=== PATIENT | female | born 1975 | race Caucasian/White ===

== ENCOUNTER 2018-04-15 11:30 | Emergency (ER) | payer OTHER ==
[2018-04-15 13:15] VITALS: BP 112/78
--- NOTE | 2018-04-15 13:45 | UC ---
Shoulder Pain HPI - HPI Summary HPI Summary: Pt with h/o chronic pain, fibromylagia presents to with "knot" and pain in left posterior shoulder. Pt states has been present for 3 days. no relief with Rx oxycodong or fentanyl. Pt has tried heat and gentle massage without relief. Pt reports paresthesia LUE. pt states called Dr. Danielle and recommended she come here. Pt is RHD. no trauma. no cp, sob. no other injuries Pt's medications reviewed this visit - History of Current Complaint Chief Complaint: UCUpperExtremity Stated Complaint: LEFT SHOULDER PAIN Time Seen by Provider: 04/15/18 13:09 Hx Obtained From: Patient Hx Last Menstrual Period: 03/24/18 ?: No Onset/Duration: Gradual Onset Pain Intensity: 10 - Allergies/Home Medications Allergies/Adverse Reactions: Allergies Allergy/AdvReac Type Severity Reaction Status Date / Time No Known Allergies Allergy Verified 04/15/18 13:09 Home Medications: Home Medications Etanercept [Enbrel] 50 mg SC WEEKLY 04/15/18 [History Confirmed 04/15/18] Hydroxychloroquine TAB* [Plaquenil TAB*] 200 mg PO DAILY 04/15/18 [History Confirmed 04/15/18] oxyCODONE TAB* [Roxycodone TAB 5 mg*] 20 mg PO Q4H PRN 04/15/18 [History Confirmed 04/15/18] sulfaSALAzine TAB* [Azulfidine TAB*] 1,000 mg PO BID 04/15/18 [History Confirmed 04/15/18] tiZANidine TAB* [Zanaflex TAB*] 2 mg PO BID 04/15/18 [History Confirmed 04/15/18 ] PMH/Surg Hx/FS Hx/Imm Hx Previously Healthy: Yes Neurological History: Other Other Neurological History: fibromyalgia - Surgical History Surgical History: None - Family History Known Family History: Positive: Cardiac Disease, Hypertension - Social History Occupation: Disabled Lives: With Family Alcohol Use: None Substance Use Type: None Smoking Status (MU): Heavy Every Day Tobacco Smoker Type: Cigarettes Amount Used/How Often: 1/2 ppd Length of Time of Smoking/Using Tobacco: 10 YRS Review of Systems Constitutional: Negative Musculoskeletal: Other: - left posterior shoulder pain Neurological: Paresthesia All Other Systems Reviewed And Are Negative: Yes Physical Exam - Summary Physical Exam Summary: Vital Signs Reviewed: Yes A+Ox3, mild discomfort Eyes: Conjunctiva Clear, LYNN. EOM intact and full ENT: Hearing grossly normal TM x 2 clear, mmoist, uvula midline, no exudate, no erythema Neck: Positive: Supple no spinous process pain c/t/l/s Respiratory: Positive: No respiratory distress, No accessory muscle use + CTA throughout no w/r Cardiovascular: RRR nl s1, s2 no m/r CBT <2 sec abd soft + BS nt/nd no guarding, no distension Musculoskeletal Exam: Pt holding LUE supported against body + pain with abduction left shoulder, pain with palpation posterior shoulder along inferior scapula - palpable spasm. + flex.ext elbow, wrist + pronate/supinate Neurological: Positive: Alert, + sensation throughout + thumb up, a ok, finger cross, finger spread + patchy reports of parestheis 2+ bicep without clonus Psychological: Positive: Normal Response To Family Skin: Positive: no rash, no ecchymosis Triage Information Reviewed: Yes Vital Signs: Initial Vital Signs Temp 98 F 04/15/18 13:06 Pulse 102 04/15/18 13:06 Resp 16 04/15/18 13:06 BP 112/78 04/15/18 13:06 Pulse Ox 98 04/15/18 13:06 Re-Evaluation - Re-Evaluation First Eval Re-Evaluation Time: 14:25 Change: Improved - Pt states pain improved following Tordaol and sling recommend out of sling 3-4 times /day - slow circles, bend straightehten heat stretch pt spoke with Dr. Danielle - has appt Wednesday [facility] Shoulder Course/Dx - Course Course Of Treatment: Pt with left posterior shoulder pain and muscle spasm. Pt with focal pain, distal CSM intact. Pt on Fentanyl and oxycodone. recommend sling, heat, toradol, exercise. no muscle relaxant second to sedation from opiates. f/u with pain management - Differential Dx/Diagnosis Provider Diagnoses: muscle spasm left posterior shoulder Discharge - Sign-Out/Discharge Documenting (check all that apply): Patient Departure All imaging exams completed and their final reports reviewed: No Studies - Discharge Plan Condition: Stable Disposition: HOME Prescriptions: methylPREDNISolone [Medrol Dosepak 4 MG*] 4 mg PO .SEE SURY INSTRUCTION #1 tab Patient Education Materials: Muscle Spasm (ED) Referrals: Citlalli Franklin MD [Primary Care Provider] - Art Danielle DO [Doctor of Osteopathy] - (Wednesday, 10am as scheduled) Additional Instructions: - Take prednisone as prescribed until gone - wear sling for comfort and support - apply heat to the shoulder - then warm, gentle stretching exercises -k keep you appointment as scheduled on Wednesday with Dr kat Roblero Disposition and Condition Condition: STABLE Disposition: Home
[2018-04-15] MEDS ORDERED: Ketorolac INJ* 60 MG/2 ML VIAL IM ONE (13:50)
== END 2018-04-15 14:26 | disposition home or self-care (01) ==
LOC: UCCORT 11:30
DX: M62.838 Other muscle spasm (principal); M79.7 Fibromyalgia; F17.210 Nicotine dependence, cigarettes, uncomplicated
CPT/HCPCS: 96372; 99213; G0463; J1885

== ENCOUNTER 2018-04-20 14:37 | Emergency (ER) | payer OTHER ==
[2018-04-20 16:47] VITALS: BP 123/78
--- NOTE | 2018-04-20 17:44 | UC ---
Back Pain HPI - HPI Summary HPI Summary: 42-year-old female with history of chronic pain syndrome and fibromyalgia presents with an 8 day history of left upper back/shoulder pain that radiates up into left side of her neck. She was initially seen at this facility on 04/15. Chart reviewed. She was given dose of Toradol at that time with some improvement in her symptoms and discharged home on a Medrol Dosepak with follow- up with Dr. Danielle, pain management, on 04/18/2018 which she did keep. States that her taste gave her some injections which provided temporary pain relief but pain returned later that day. She spoke with her primary care provider today who ordered some x-rays which were done at this facility. She takes oxycodone and fentanyl routinely and states these have provided no relief. She does report some pain relief while taking the Medrol Dosepak. Describes pain as a constant intense spasm that worsens with movement. She reports some intermittent numbness and tingling in the right arm and fingers. Denies fever, chills, injury, rash, chest pain, palpitations, shortness of breath, abdominal pain, nausea, vomiting, or weakness of upper extremities.she has follow-up appointment scheduled with Dr. Danielle on April 25. - History of Current Complaint Chief Complaint: UCGeneralIllness Stated Complaint: RECHECK BACK PAIN Time Seen by Provider: 04/20/18 17:23 Hx Obtained From: Patient Hx Last Menstrual Period: 04/17/18 Onset/Duration: Gradual Onset, Lasting Days - 8 Timing: Constant Severity Currently: Severe Pain Intensity: 10 Character: Spasmodic Aggravating Factor(s): Movement Alleviating Factor(s): Nothing Associated Signs And Symptoms: Positive: Numbness, Tingling. Negative: Swelling , Redness, Bruising, Fever, Weakness, Abdominal Pain - Allergies/Home Medications Allergies/Adverse Reactions: Allergies Allergy/AdvReac Type Severity Reaction Status Date / Time No Known Allergies Allergy Verified 04/20/18 16:38 PMH/Surg Hx/FS Hx/Imm Hx - Additional Past Medical History Additional PMH: Chronic pain syndrome, fibromyalgia, rheumatoid arthritis - Surgical History Surgical History: None - Family History Known Family History: Positive: Cardiac Disease, Hypertension - Social History Occupation: Disabled Lives: With Family Alcohol Use: None Substance Use Type: Prescribed Smoking Status (MU): Heavy Every Day Tobacco Smoker Type: Cigarettes Amount Used/How Often: 1/2 ppd Length of Time of Smoking/Using Tobacco: 10 YRS Review of Systems Constitutional: Negative Skin: Negative Respiratory: Negative Cardiovascular: Negative Gastrointestinal: Negative Motor: Negative Musculoskeletal: Other: - See HPI Neurological: Paresthesia, Numbness Is Patient Immunocompromised?: Yes - Enbrel All Other Systems Reviewed And Are Negative: Yes Physical Exam Triage Information Reviewed: Yes Appearance: Well-Nourished, Ill-Appearing - Chronically, Pain Distress - Mild- moderate distress Vital Signs: Initial Vital Signs Temp 97.9 F 04/20/18 16:40 Pulse 81 04/20/18 16:40 Resp 20 04/20/18 16:40 BP 123/78 04/20/18 16:40 Pulse Ox 100 04/20/18 16:40 Vital Signs Reviewed: Yes Neck: Positive: Supple, Nontender Respiratory: Positive: Lungs clear, Normal breath sounds, No respiratory distress Cardiovascular: Positive: RRR, No Murmur, Pulses Normal, Brisk Capillary Refill Musculoskeletal: Positive: Strength Intact, ROM Intact - Left shoulder, Other: - Soft tissue tenderness across left upper back across scapula. Neurological: Positive: Alert, Muscle Tone Normal, Other: - Sensation intact bilateral upper extremities Skin Exam: Normal Diagnostics - Radiology No standard instances Radiology Interpretation Completed By: Radiologist - X-rays of C-spin, T-spine, and left shoulder ordered by Dr. Severino and performed earlier today were read by radiologist and reviewed. There was some mild DDD of the cervical spin with mild straitening of the normal cervical lordosis without evidence of fracture, T -spine showed straitening of normal kyphosis without evidence of fracture, left shoulder with mild AC arthritis but otherwise unremarkable. Back Pain Course/Dx - Course Course Of Treatment: 42 year old female with history of chronic pain syndrome, fibromyalgia, and RA presents with 8 day history of non-traumatic left upper back/shoulder pain. Her exam was unremarkable except for some soft tissue tenderness. The X-rays performed earlier in the day were reviewed and unremarkable for acute pathology. She states she had some relief with the ketoralac injection she received at previous visit and with the Medrol Dose Angel therefore will give her another ketoralac injection and restart her on a short course of steroids. She is to follow up with Dr. Danielle, pain management, on Wednesday as scheduled. Warning symptoms reviewed with patient. Verbalizes understanding and agrees with POC. - Differential Dx/Diagnosis Differential Diagnosis/HQI/PQRI: Arthritis, Fracture, Herniated Disc, Strain, Other - fibromyalgia Provider Diagnoses: left upper back pain Discharge - Sign-Out/Discharge Documenting (check all that apply): Patient Departure All imaging exams completed and their final reports reviewed: No Studies - Discharge Plan Condition: Stable Disposition: HOME Prescriptions: predniSONE TAB* [Deltasone 10 MG TAB*] 30 mg PO DAILY #15 tab Patient Education Materials: Back Pain (ED) Referrals: Citlalli Franklin MD [Primary Care Provider] - Additional Instructions: The X-rays that were performed earlier today were reviewed by the radiologist and there were no significant findings. You were given another shot of ketoralac in the clinic today. Do not take any other non-steroidal anti-inflammatories such as ibuprofen (Advil, Motrin), naproxen (Aleve) or aspirin for at least 8 hours after receiving this injection. I will send a prescription for prednisone 30 mg daily for 5 days. Continue your other pain medications as prescribed however I would recommend not taking the muscle relaxant with the other pain medications as this may cause over sedation. Continue to use the sling that was provided at your previous visit as needed for comfort. Apply heat to the affected area for 15-20 minutes 4 times a day. Keep your appointment with Dr. Danielle as scheduled on Wednesday. Seek immediate medical attention in the emergency room if you develop any chest pain, feeling like your heart is racing or skipping beats, have shortness of breath, weakness or dizziness, or any worsening of symptoms. - Billing Disposition and Condition Condition: STABLE Disposition: Home - Attestation Statements Provider Attestation: Per institutional requirements, I have reviewed the chart, however, I was not consulted specifically or made aware of this patient by the midlevel provider. I did not personally evaluate, interact with , or disposition this patient.
[2018-04-20] MEDS ORDERED: Ketorolac INJ* 30 MG/ML 1 ML VIAL IM ONE (17:46)
== END 2018-04-20 17:58 | disposition home or self-care (01) ==
LOC: UCCORT 14:37
DX: M54.6 Pain in thoracic spine (principal); M79.7 Fibromyalgia; G89.4 Chronic pain syndrome; M06.9 Rheumatoid arthritis, unspecified; F17.210 Nicotine dependence, cigarettes, uncomplicated
CPT/HCPCS: 96372; 99212; G0463; J1885

== ENCOUNTER 2018-08-11 05:42 | Observation (INO) | payer MEDICARE, OTHER ==
[~2018-08-11 05:42] MED LIST: Buffered Lidocaine 1% SYRIN* 1 ML/SYRINGE INTRADERM ONE
--- OUTSIDE RECORDS SUMMARY | 2018-08-11 05:46 | XMS REPORT | Continuity of Care Document ---
:1975 External Reference #:[id number] Author Name Socorro Kevin Care Team Providers Name Role Phone Citlalli Franklin MD Primary Care Physician Unavailable Payers Type Date Identification Numbers Payment Provider Subscriber Policy Number: [id number] Medicare Leanne Butler PayID: [id number] [address] [place] [address] Effective: 2015 Policy Number: [employer] Medicaid Leanne Butler [id number] Expires: 2018 Group Name: [id number] [address] [address] PayID: [id number] [place] [address] Expires: 2015 Policy Number: [id number] [facility] Leanne Butler PayID: [id number] [address] [address] Expires: 2018 Policy Number: [id number] [facility] Ppo Leanne Butler PayID: [id number] [place] [address] Effective: 2010 Policy Number: [id number] [employer] Ppo Leanne Butler Expires: 2010 PayID: [id number] [place] [address] Expires: 2018 [facility]: [id number] [facility] [address] [address] Effective: 2018 Policy Number: [id number] Medicaid Leanne Butler Group Name: 1 1 [address] PayID: [id number] [place] [address] Advance Directives Description No Information Available Problems Date Description Provider Status Onset: 12/12/2015 Disturbance in sleep behavior Natalie Martínez MD Active Family History Date Family Member(s) Problem(s) Comments General Rheumatoid Arthritis General Colon Cancer General Diabetes Type II General Alzheimer's Disease Father Colon Cancer Father Diabetes Type II Father Chronic Obstructive Pulmonary Disease (COPD) Mother Alive And Well Paternal Grandfather due to Unknown Causes () Paternal Grandmother due to Unknown Causes () Maternal Grandfather due to Diabetes () Maternal Grandmother due to Alzheimer's Disease () Social History Type Date Description Comments Sex Unknown Marital Status Significant Other Lives With Boyfriend 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 times daily -- maximum daily dose of 2 per day Baclofen 05/16/20 Active Tablets 10mg 14tabs take one L40.50 Scott 18 tablet by Maycol mouth twice M.D. a day as needed for muscle spasms - avoid driving and other muscular relaxants M25.512 Ciclopirox 03/16/2018 Active Cream 0.77% 30gm apply to nail Scott Olamine daily as rylie Severino M.D. B12 Fast 02/16/2018 Active Tablets 5000mcg 90tabs sublingual Scott Dissolve Dispers daily Yudelka Severino Duloxetine HCL 02/15/[address] 30mg 90caps Take One Scott Part Capsule By Cem Severino Daily M.DYoshi Along With 60 MG Dose Clobetasol 12/13/2017 Active Ointment 0.05% 30unit Apply Once L4 Scott Propionate s Daily as Needed 0. Maycol, For Psoriasis, 50 M.D. Avoid Face And Neck Chantix Starting 12/07/2017 Active Tablets 0.5mg X 55tabs as directed, F1 Scott Month Angel 11 & 1 stop smoking 7. Maycol, mg X 42 21 M.D. 0 Chantix 12/07/2017 Active Tablets 1mg 90tabs day 8 to end of F1 Scott treatment: 1 mg 7. Maycol, by mouth twice 21 M.D. a day 0 Beeswax (Yellow) 12/07/2017 Active Wax 3gm apply daily for F1 Scott dry skin as 7. Maycol, needed 21 M.D. 0 Enbrel Sureclick 09/09/2017 Active Solution 50mg/ml 3.92un inject 50mg L4 Scott Auto-Injec its under the skin 0. Maycol, t every week 50 M.D. Neoprene Patella 06/25/2017 Active Misc 2units use daily as Scott Knee needed for Maycol, Support/Medium right and left M.D. knee stabilization 715.19 Cymbalta 01/13/2017 Active Caps 30mg 90caps please take one Scott Part capsule by Maycol, mouth daily M.D. along with 60 mg dose Duloxetine HCL 01/13/[address] 60mg 90caps 1 by mouth Scott Part every day along Maycol, with 30 mg M.D. capsule Systane 10/13/2016 Active Solution 0.4-0.3 30unit apply twice M7 Scott Preservative % s daily for dry 9. Maycol, Free eyes 1 M.D. Sulfasalazine 07/09/2016 Active Tablets 500mg 120tab Take 2 Tablets L4 Scott s By Mouth In The 0. Maycol, Morning And In 50 M.D. The Evening For A Total Of 4 Tablets Daily Ongoing Amitiza 12/11/2015 Active Capsules 8mcg 1 by mouth Unknown twice a day Fentanyl 12/11/2015 Active Patches 37.5mcg 1 patch every Unknown 72HR /HR 72 hours Oxycodone HCL 12/11/2015 Active Tablets 20mg 1 tablet by Unknown mouth 4 times a day as needed Gabapentin 12/11/2015 Active Capsules 400mg 180cap Take 1 Capsule M7 Scott s By Mouth Six 9. Maycol, Times A Day 7 M.D. Nabumetone 05/09/2018 - Hx Tablets 500mg 60tabs take one L4 Scott 05/16/2018 capsule/tablet 0. Maycol, by mouth twice 50 M.D. daily as needed for pain, please stop other nsaids, avoid at same time as duloxetine M25.512 Diclofenac Sodium 04/19/2018 - Hx Gel 3% 100gm apply twice L40.50 Scott 05/09/2018 daily to your [place] Severino. shoulder region M25.512 Provigil 02/16/2018 - Hx Tablets 100mg 30tabs take one R53.83 Scott 04/20/2018 capsule/tablet Maycol, daily by mouth M.D. as needed for hypersomnia mdd 1(failed adderall) Enbrel Mini 09/09/2017 - Hx Solution 50mg/ml 3.920ml sq weekly L40.50 Scott 09/09/2017 Cartridge Nanci SeverinoD. Adderall 06/07/2017 - Hx Tablets 5mg 120tabs take two tablets R53.83 Scott 07/11/2018 by mouth twice a Maycol, day max/day=4 M.D. Nuvigil 04/26/2017 - Hx Tablets 50mg 30tabs take one L40.50 Scott 05/11/2017 capsule/tablet Maycol, daily by mouth M.D. as needed for hypersomnia F51.11 Diclofenac 01/13/2017 - Hx Tablets DR 75mg 60tabs Take One L40.50 Scott Sodium 04/19/2018 Tablet By Maycol, Mouth Twice A M.D. Day as Needed For Pain, Avoid Other NSAIDS Naproxen 12/07/2016 - Hx Tablets 500mg 60tabs 1 tablet with Scott 01/13/2017 food by mouth Maycol, twice a day M.D. as needed for pain, avoid with other NSAIDs (not taking) Calcipotriene 10/13/2016 - Hx Ointment 0.005% 60gm apply a thin L40.50 Scott 12/13/2017 layer to Maycol, affected M.D. areas once or twice a day and rub in gently and completely Provigil 10/13/2016 - Hx Tablets 100mg 30tabs take one G47.14 Scott 01/13/2017 capsule/table Maycol, t daily by M.D. mouth as needed for hypersomnia Salivasure 10/13/2016 - Hx Lozenges 60units use daily as M79.1 Scott 01/13/2017 needed for Maycol, zoe of M.D. the mouth Estazolam 04/21/2016 - Hx Tablets 1mg 14tabs 1 po at G47.00 Marycarmen 10/13/2016 bedtime x 3 Keron, ANTONIO, nights then KEVIN ODOM-JUDI off of 3 nights may repeat weekly Trazodone HCL 04/21/2016 - Hx Tablets 50mg 30tabs Take One M06.4 Scott 12/07/2017 Tablet By Maycol Mouth AT M.D. Bedtime as Needed For Insomnia Diclofenac 01/23/2016 - Hx Tablets DR 75mg 60tabs Take One Scott Sodium 12/07/2016 Tablet By Maycol Mouth Twice A M.D. Day as Needed For Pain Avoid Other NSAIDS Folic Acid 12/11/2015 - Hx Tablets 1mg 1 by mouth Unknown 02/20/2016 every day Meloxicam 12/11/2015 - Hx Tablets 7.5mg take 1 tab by Unknown 01/23/2016 mouth qdaily with food Plaquenil 12/11/2015 - Hx Tablets 200mg 2 by mouth Unknown 10/13/2016 daily Lexapro 12/11/2015 - Hx Tablets 20mg 1 by mouth Unknown 01/13/2017 every day Cymbalta 12/11/2015 - Hx Caps DR 60mg 1 by mouth Unknown 01/13/2017 Part every day Methotrexate 12/11/2015 - Hx Tablets 2.5mg 4 tabs by Unknown 01/23/2016 mouth every week Medications Administered in Office Medication Date Status Form Strength Qnty SIG Indications Ordering Provider No Injection 05/16/20 Administered Injection Scott Seveirno M.D. No Injection 05/16/20 Administered Injection Scott Severino M.D. Immunizations CPT Code Status Date Vaccine Reaction Lot # [id number] Given 02/16/2018 Pneumococcal Conjugate no immediate reaction [id number] Vaccine 13 Valent For noted Intramuscular Use 69850 Given 04/26/2017 Influenza Virus Vaccine, [id number] Quadrivalent, Split, Preservative Free 20112 Given 04/13/2016 Influenza Virus Vaccine, Quadrivalent, Split, Preservative Free Vital Signs Date Vital Result Comment 08/03/2018 11:05am Height 67.5 inches 5'7.50" Weight 150.00 lb BP Systolic Sitting 100 mmHg BP Diastolic Sitting 60 mmHg Pain Level 8 BMI (Body Mass Index) 23.1 kg/m2 07/26/2018 3:28pm Height 66 inches 5'6" Weight 150.00 lb Heart Rate 80 /min BP Systolic 120 mmHg BP Diastolic 64 mmHg Pain Level 9 O2 % BldC Oximetry 98 % BMI (Body Mass Index) 24.2 kg/m2 06/20/2018 11:05am Height 66 inches 5'6" Weight 143.00 lb Heart Rate 84 /min BP Systolic Sitting 108 mmHg BP Diastolic Sitting 72 mmHg Pain Level 9 BMI (Body Mass Index) 23.1 kg/m2 05/16/2018 3:50pm Height 66 inches 5'6" Weight 141.00 lb Heart Rate 113 /min BP Systolic Sitting 140 mmHg BP Diastolic Sitting 67 mmHg Respiratory Rate 14 /min Pain Level 10 BMI (Body Mass Index) 22.8 kg/m2 02/16/2018 3:25pm Height 66 inches 5'6" Weight 146.00 lb Heart Rate 96 /min BP Systolic Sitting 124 mmHg BP Diastolic Sitting 77 mmHg Respiratory Rate 14 /min Pain Level 7 BMI (Body Mass Index) 23.6 kg/m2 12/07/2017 11:32am Height 66 inches 5'6" Weight 146.00 lb Heart Rate 105 /min BP Systolic Sitting 124 mmHg BP Diastolic Sitting 82 mmHg Respiratory Rate 14 /min Pain Level 7 BMI (Body Mass Index) 23.6 kg/m2 09/09/2017 8:59am Height 66 inches 5'6" Heart Rate 103 /min BP Systolic Sitting 117 mmHg BP Diastolic Sitting 78 mmHg Respiratory Rate 14 /min Pain Level 9 06/25/2017 1:00pm Height 66 inches 5'6" Weight 158.00 lb Heart Rate 100 /min BP Systolic Sitting 90 mmHg BP Diastolic Sitting 58 mmHg Respiratory Rate 14 /min Pain Level 7 BMI (Body Mass Index) 25.5 kg/m2 04/26/2017 3:05pm Height 66 inches 5'6" Weight 158.19 lb Heart Rate 105 /min BP Systolic Sitting 121 mmHg BP Diastolic Sitting 80 mmHg Respiratory Rate 14 /min Pain Level 7 BMI (Body Mass Index) 25.5 kg/m2 01/13/2017 9:17am Height 66 inches 5'6" Weight 163.00 lb Heart Rate 100 /min BP Systolic Sitting 110 mmHg BP Diastolic Sitting 70 mmHg Respiratory Rate 14 /min Pain Level 8 BMI (Body Mass Index) 26.3 kg/m2 10/13/2016 11:47am Height 66 inches 5'6" Weight 166.00 lb Heart Rate 101 /min BP Systolic Sitting 124 mmHg BP Diastolic Sitting 73 mmHg Body Temperature 98.4 F Pain Level 8 BMI (Body Mass Index) 26.8 kg/m2 07/09/2016 2:37pm Height 66 inches 5'6" Weight 170.38 lb Heart Rate 80 /min BP Systolic Sitting 118 mmHg BP Diastolic Sitting 80 mmHg Respiratory Rate 14 /min Body Temperature 96.8 F BMI (Body Mass Index) 27.5 kg/m2 04/21/2016 3:05pm Height 66 inches 5'6" Weight 171.00 lb Heart Rate 89 /min BP Systolic Sitting 138 mmHg BP Diastolic Sitting 78 mmHg Respiratory Rate 16 /min O2 % BldC Oximetry 98 % BMI (Body Mass Index) 27.6 kg/m2 04/21/2016 2:02pm Height 68 inches 5'8" Weight 173.00 lb Heart Rate 80 /min BP Systolic Sitting 120 mmHg BP Diastolic Sitting 60 mmHg Respiratory Rate 14 /min Body Temperature 98.0 F Pain Level 5 BMI (Body Mass Index) 26.3 kg/m2 02/20/2016 2:00pm Height 68 inches 5'8" Weight 172.12 lb Heart Rate 72 /min BP Systolic Sitting 142 mmHg BP Diastolic Sitting 80 mmHg Respiratory Rate 14 /min Body Temperature 96.0 F Pain Level 7 BMI (Body Mass Index) 26.2 kg/m2 01/23/2016 1:43pm Height 68 inches 5'8" Weight 174.00 lb Heart Rate 84 /min BP Systolic Sitting 120 mmHg BP Diastolic Sitting 84 mmHg Respiratory Rate 14 /min Body Temperature 98.1 F Pain Level 8 BMI (Body Mass Index) 26.5 kg/m2 01/02/2016 2:17pm Height 68 inches 5'8" Weight 174.00 lb Heart Rate 82 /min BP Systolic Sitting 126 mmHg BP Diastolic Sitting 86 mmHg Respiratory Rate 14 /min Body Temperature 96.7 F Pain Level 8 BMI (Body Mass Index) 26.5 kg/m2 12/12/2015 11:54am Height 68 inches 5'8" Weight 170.00 lb Heart Rate 78 /min BP Systolic 124 mmHg BP Diastolic 74 mmHg Respiratory Rate 14 /min O2 % BldC Oximetry 98 % BMI (Body Mass Index) 25.8 kg/m2 Neck Circumference in inches 15 Results Test Date Facility Test Result H/L Range Note Quantiferon Gold TB 04/29/2018 [facility] QuantiFERON Negative Negative [address] [place] [address] Plus [phone] TB1 Ag minus Nil Result 0 IU/mL TB2 Ag minus Nil Result 0 IU/mL TB Mitogen minus Nil Result 8.53 IU/mL TB Nil Result 0.01 IU/mL 2 Laboratory test 04/15/2018 [facility] C Reactive < 1.00 N < 8.[address] Protein mg/L [place], [place] [id number] [phone] Basic Metabolic 04/15/2018 [facility] Sodium 139 mmol/L N 135- [address] [place] [address] [phone] Potassium 4.3 mmol/L N 3.5-5.0 Chloride 105 mmol/L N 101-111 Co2 Carbon Dioxide 27 mmol/L N 22-32 Anion Gap 7 mmol/L N 2-11 Glucose 83 mg/dL N 70-100 Blood Urea Nitrogen 10 mg/dL N 6-24 Creatinine 0.69 mg/dL N 0.51-0.95 BUN/Creatinine Ratio 14.5 N 8-20 Calcium 9.9 mg/dL N 8.6-10.3 Egfr Non- 93.8 >60 Egfr 113.4 >60 4 Laboratory test finding 04/15/2018 [facility] Cortisol 7.70 g/ dL [address] [place] [address] [phone] Thyroperoxidase AB 0.70 IU/mL N <9 6 Lyme Western 01/19/2018 [facility] Lyme Disease Negative Negative Blot [address] [place] [place] [address] [phone] Lyme Disease IgG Bands Present No bands detecte <SEE NOTE> kDa 7 Lyme Disease IgM Ab WB Negative Negative Lyme Disease IgM Bands Present No bands detecte <SEE NOTE> kDa 8 Lyme Disease Interpretation See Comment 9 Laboratory test 01/19/2018 [facility] Erythrocyte Sed 13 mm/Hr N 0-14 [address] [place] [address] [phone] C Reactive Protein 1.65 mg/L N <8.01 11 CBC Auto Diff 01/19/2018 [facility] White Blood 8.3 10^3/uL N 3.5-10.[address] [place] [address] [phone] Red Blood Count 4.29 10^6/uL N 4.00-5.40 Hemoglobin 14.5 g/dL N 12.0-16.0 Hematocrit 42 % N 35-47 Mean Corpuscular Volume 97 fL N 80-97 Mean Corpuscular Hemoglobin 34 pg High 27-31 Mean Corpuscular HGB Conc 35 g/dL N 31-36 Red Cell Distribution Width 13 % N 10.5-15 Platelet Count 308 10^3/uL N 150-450 Mean Platelet Volume 7.8 um3 N 7.4-10.4 Abs Neutrophils 3.7 10^3/uL N 1.5-7.7 Abs Lymphocytes 3.5 10^3/uL N 1.0-4.8 Abs Monocytes 0.8 10^3/uL N 0-0.8 Abs Eosinophils 0.3 10^3/uL N 0-0.6 Abs Basophils 0.1 10^3/uL N 0-0.2 Abs Nucleated RBC 0 10^3/uL Granulocyte % 44.7 % N 38-83 Lymphocyte % 42.2 % N 25-47 Monocyte % 9.0 % High 0-7 Eosinophil % 3.1 % N 0-6 Basophil % 1.0 % N 0-2 Nucleated Red Blood Cells % 0.1 Comp Metabolic Panel 01/19/2018 [facility] Sodium 140 mmol/L N 135-[address] [place], [place] [id number] [phone] Chloride 103 mmol/L N 101-111 Co2 Carbon Dioxide 30 mmol/L N 22-32 Glucose 65 mg/dL Low 70-100 Blood Urea Nitrogen 7 mg/dL N 6-24 Creatinine 0.69 mg/dL N 0.51-0.95 BUN/Creatinine Ratio 10.1 N 8-20 Calcium 9.7 mg/dL N 8.6-10.3 Total Protein 7.0 g/dL N 6.4-8.9 Albumin 4.4 g/dL N 3.2-5.2 Globulin 2.6 g/dL N 2-4 Albumin/Globulin Ratio 1.7 N 1-3 Total Bilirubin 0.30 mg/dL N 0.2-1.0 Alkaline Phosphatase 42 U/L N 34-104 Alt 9 U/L N 7-52 Ast 14 U/L N 13-39 Egfr Non- 93.8 >60 Egfr 113.4 >60 12 Potassium 5.2 mmol/L High 3.5-5.0 Anion Gap 7 mmol/L N 2-11 Laboratory test 01/19/2018 [facility] TSH (Thyroid 1.83 mcIU/mL N 0.34-5.60 [address] Stim [place]orm) [place] [address] [phone] Folic Acid (Folate) 8.22 ng/mL >3.99 14 Vitamin B12 344 pg/mL N 180-914 15 Vitamin D, 1,25 Dihydroxy 19 pg/mL 18-78 16 Laboratory test 01/19/2018 [facility] Erythrocyte Sed 13 mm/Hr N 0-14 [address] [place] [address] [phone] C Reactive Protein 1.65 mg/L N <8.01 18 TSH (Thyroid Stim Horm) 1.83 mcIU/mL N 0.34-5.60 19 Vitamin B12 And 01/19/2018 [facility] Vitamin B12 344 pg/mL N 180-914 20 Folate Serum [address] [place] [address] [phone] Folic Acid (Folate) 8.22 ng/mL >3.99 21 Laboratory test 01/19/2018 [facility] Vitamin D, 19 pg/mL [address] 1,25 [place] [address] [phone] CBC Auto Diff 01/19/2018 [facility] White Blood 8.3 N 3.5- 10.[address] Count 10^3/[place] [address] [phone] Red Blood Count 4.29 10^6/uL N 4.00-5.40 Hemoglobin 14.5 g/dL N 12.0-16.0 Hematocrit 42 % N 35-47 Mean Corpuscular Volume 97 fL N 80-97 Mean Corpuscular Hemoglobin 34 pg High 27-31 Mean Corpuscular HGB Conc 35 g/dL N 31-36 Red Cell Distribution Width 13 % N 10.5-15 Platelet Count 308 10^3/uL N 150-450 Mean Platelet Volume 7.8 um3 N 7.4-10.4 Abs Neutrophils 3.7 10^3/uL N 1.5-7.7 Abs Lymphocytes 3.5 10^3/uL N 1.0-4.8 Abs Monocytes 0.8 10^3/uL N 0-0.8 Abs Eosinophils 0.3 10^3/uL N 0-0.6 Abs Basophils 0.1 10^3/uL N 0-0.2 Abs Nucleated RBC 0 10^3/uL Granulocyte % 44.7 % N 38-83 Lymphocyte % 42.2 % N 25-47 Monocyte % 9.0 % High 0-7 Eosinophil % 3.1 % N 0-6 Basophil % 1.0 % N 0-2 Nucleated Red Blood Cells % 0.1 Comp Metabolic Panel 01/19/2018 [facility] Sodium 140 mmol/L N 135-[address] [place] [address] [phone] Chloride 103 mmol/L N 101-111 Co2 Carbon Dioxide 30 mmol/L N 22-32 Glucose 65 mg/dL Low 70-100 Blood Urea Nitrogen 7 mg/dL N 6-24 Creatinine 0.69 mg/dL N 0.51-0.95 BUN/Creatinine Ratio 10.1 N 8-20 Calcium 9.7 mg/dL N 8.6-10.3 Total Protein 7.0 g/dL N 6.4-8.9 Albumin 4.4 g/dL N 3.2-5.2 Globulin 2.6 g/dL N 2-4 Albumin/Globulin Ratio 1.7 N 1-3 Total Bilirubin 0.30 mg/dL N 0.2-1.0 Alkaline Phosphatase 42 U/L N 34-104 Alt 9 U/L N 7-52 Ast 14 U/L N 13-39 Egfr Non- 93.8 >60 Egfr 113.4 >60 23 Potassium 5.2 mmol/L High 3.5-5.0 Anion Gap 7 mmol/L N 2-11 Laboratory test 07/29/2017 [facility] C Reactive < 1.00 N < 5.00 [address] Protein mg/[place] [address] [phone] Comp Metabolic 07/29/2017 [facility] Sodium 139 mmol/L N 133- [address] [place] [address] [phone] Potassium 4.5 mmol/L N 3.5-5.0 Chloride 104 mmol/L N 101-111 Co2 Carbon Dioxide 31 mmol/L N 22-32 Anion Gap 4 mmol/L N 2-11 Glucose 69 mg/dL Low 70-100 Blood Urea Nitrogen 9 mg/dL N 6-24 Creatinine 0.75 mg/dL N 0.51-0.95 BUN/Creatinine Ratio 12.0 N 8-20 Calcium 9.7 mg/dL N 8.6-10.3 Total Protein 7.0 g/dL N 6.4-8.9 Albumin 4.4 g/dL N 3.2-5.2 Globulin 2.6 g/dL N 2-4 Albumin/Globulin Ratio 1.7 N 1-3 Total Bilirubin 0.50 mg/dL N 0.2-1.0 Alkaline Phosphatase 44 U/L N 34-104 Alt 8 U/L N 7-52 Ast 13 U/L N 13-39 Egfr Non- 85.6 >60 Egfr 110.1 >60 25 CBC Auto Diff 07/29/2017 [facility] White Blood 8.0 10^3/uL N 3.5-10.[address] [place] [address] [phone] Red Blood Count 4.25 10^6/uL N 4.0-5.4 Hemoglobin 14.2 g/dL N 12.0-16.0 Hematocrit 41 % N 35-47 Mean Corpuscular Volume 97 fL N 80-97 Mean Corpuscular Hemoglobin 33 pg High 27-31 Mean Corpuscular HGB Conc 34 g/dL N 31-36 Red Cell Distribution Width 13 % N 10.5-15 Platelet Count 281 10^3/uL N 150-450 Mean Platelet Volume 8 um3 N 7.4-10.4 Abs Neutrophils 4.2 10^3/uL N 1.5-7.7 Abs Lymphocytes 2.9 10^3/uL N 1.0-4.8 Abs Monocytes 0.5 10^3/uL N 0-0.8 Abs Eosinophils 0.3 10^3/uL N 0-0.6 Abs Basophils 0.1 10^3/uL N 0-0.2 Abs Nucleated RBC 0 10^3/uL Granulocyte % 52.2 % N 38-83 Lymphocyte % 37.0 % N 25-47 Monocyte % 6.7 % N 1-9 Eosinophil % 3.2 % N 0-6 Basophil % 0.9 % N 0-2 Nucleated Red Blood Cells % 0.1 Laboratory test 07/29/2017 [facility] Erythrocyte Sed 20 mm/Hr High 0-[address] [place] [address] [phone] CBC Auto Diff 04/13/2017 [facility] White Blood 7.4 N 3.5- 10.[address] Count 10^3/[place] [address] [phone] Red Blood Count 4.20 10^6/uL N 4.0-5.4 Hemoglobin 13.5 g/dL N 12.0-16.0 Hematocrit 39 % N 35-47 Mean Corpuscular Volume 94 fL N 80-97 Mean Corpuscular Hemoglobin 32 pg High 27-31 Mean Corpuscular HGB Conc 34 g/dL N 31-36 Red Cell Distribution Width 13 % N 10.5-15 Platelet Count 273 10^3/uL N 150-450 Mean Platelet Volume 8 um3 N 7.4-10.4 Abs Neutrophils 4.2 10^3/uL N 1.5-7.7 Abs Lymphocytes 2.6 10^3/uL N 1.0-4.8 Abs Monocytes 0.5 10^3/uL N 0-0.8 Abs Eosinophils 0 10^3/uL N 0-0.6 Abs Basophils 0.1 10^3/uL N 0-0.2 Abs Nucleated RBC 0.01 10^3/uL N Granulocyte % 56.2 % N 38-83 Lymphocyte % 35.4 % N 25-47 Monocyte % 6.9 % N 1-9 Eosinophil % 0.4 % N 0-6 Basophil % 1.1 % N 0-2 Nucleated Red Blood Cells % 0.1 N Comp Metabolic Panel 04/13/2017 [facility] Sodium 135 mmol/L N 133-[address] [place] [address] [phone] Potassium 4.1 mmol/L N 3.5-5.0 Chloride 102 mmol/L N 101-111 Co2 Carbon Dioxide 29 mmol/L N 22-32 Anion Gap 4 mmol/L N 2-11 Glucose 101 mg/dL High 70-100 Blood Urea Nitrogen 12 mg/dL N 6-24 Creatinine 0.69 mg/dL N 0.51-0.95 BUN/Creatinine Ratio 17.4 N 8-20 Calcium 9.1 mg/dL N 8.6-10.3 Total Protein 6.8 g/dL N 6.4-8.9 Albumin 4.1 g/dL N 3.2-5.2 Globulin 2.7 g/dL N 2-4 Albumin/Globulin Ratio 1.5 N 1-3 Total Bilirubin 0.30 mg/dL N 0.2-1.0 Alkaline Phosphatase 42 U/L N 34-104 Alt 7 U/L N 7-52 Ast 12 U/L Low 13-39 Egfr Non- 94.2 N >60 Egfr 121.2 N >60 26 Laboratory test 04/13/2017 [facility] Creatine 54 U/L N 10- 223 [address] Kinase(CK) [place] [address] [phone] C Reactive Protein 2.57 mg/L N < 5.00 28 Laboratory test 12/09/2016 [facility] Erythrocyte Sed 28 mm/Hr High 0-14 [address] [place] [address] [phone] C Reactive Protein 3.97 mg/L N < 5.00 30 Ssa/SSB Abs Igg 12/09/2016 [facility] SS-A/Ro Antibody <0.2 U N [address] [place] [address] [phone] SS-B/La Antibody <0.2 U N 32 Laboratory test 12/09/2016 [facility] Hemoglobin A1c 5.2 % N Less than [address] (Glyco HGB) 6.0 [place] [address] [phone] Laboratory test 08/13/2016 [facility] C Reactive < 1.00 N < 5.00 [address] Protein mg/[place] [address] [phone] Erythrocyte Sed Rate 13 mm/Hr N 0-14 CBC W/Auto 08/13/2016 [facility] White Blood 9.6 10^3/uL N 3.5 -10.[address] [place] [address] [phone] Red Blood Count 4.51 10^6/uL N 4.0-5.4 Hemoglobin 14.3 g/dL N 12.0-16.0 Hematocrit 42 % N 35-47 Mean Corpuscular Volume 94 fL N 80-97 Mean Corpuscular Hemoglobin 32 pg High 27-31 Mean Corpuscular HGB Conc 34 g/dL N 31-36 Red Cell Distribution Width 14 % N 10.5-15 Platelet Count 281 10^3/uL N 150-450 Mean Platelet Volume 8 um3 N 7.4-10.4 Abs Neutrophils 5.0 10^3/uL N 1.5-7.7 Abs Lymphocytes 3.5 10^3/uL N 1.0-4.8 Abs Monocytes 0.7 10^3/uL N 0-0.8 Abs Eosinophils 0.3 10^3/uL N 0-0.6 Abs Basophils 0.1 10^3/uL N 0-0.2 Abs Nucleated RBC 0.01 10^3/uL N Granulocyte % 52.0 % N 38-83 Lymphocyte % 36.3 % N 25-47 Monocyte % 7.8 % N 1-9 Eosinophil % 3.1 % N 0-6 Basophil % 0.8 % N 0-2 Nucleated Red Blood Cells % 0.1 N CMP Panel 08/13/2016 [facility] Sodium 136 mmol/L N 133-[address] [place] [address] [phone] Potassium 3.8 mmol/L N 3.5-5.0 Chloride 103 mmol/L N 101-111 Co2 Carbon Dioxide 28 mmol/L N 22-32 Anion Gap 5 mmol/L N 2-11 Glucose 107 mg/dL High 70-100 Blood Urea Nitrogen 9 mg/dL N 6-24 Creatinine 0.68 mg/dL N 0.51-0.95 BUN/Creatinine Ratio 13.2 N 8-20 Calcium 9.7 mg/dL N 8.6-10.3 Total Protein 7.2 g/dL N 6.4-8.9 Albumin 4.5 g/dL N 3.2-5.2 Globulin 2.7 g/dL N 2-4 Albumin/Globulin Ratio 1.7 N 1-3 Total Bilirubin 0.40 mg/dL N 0.2-1.0 Alkaline Phosphatase 49 U/L N 34-104 Alt 8 U/L N 7-52 Ast 12 U/L Low 13-39 Egfr Non- 96.3 N >60 Egfr 123.9 N >60 35 Laboratory test 06/04/2016 [facility] Rheumatoid Factor <15 IU/ mL N <15 [address] [place] [address] [phone] Cyclic Citrullinated Pep Igg <15.6 U N 37 Laboratory test 06/04/2016 [facility] Creatine 81 U/L N 10- 223 [address] Kinase(CK) [place] [address] [phone] Laboratory test 06/04/2016 [facility] Erythrocyte Sed 21 mm/Hr High 0-14 [address] [place] [address] [phone] C Reactive Protein 2.12 mg/L N < 5.00 40 CBC Auto Diff 06/04/2016 [facility] White Blood 8.6 10^3/uL N 3.5-10.[address] [place], [place] [address] [phone] Red Blood Count 4.44 10^6/uL N 4.0-5.4 Hemoglobin 14.4 g/dL N 12.0-16.0 Hematocrit 41 % N 35-47 Mean Corpuscular Volume 93 fL N 80-97 Mean Corpuscular Hemoglobin 33 pg High 27-31 Mean Corpuscular HGB Conc 35 g/dL N 31-36 Red Cell Distribution Width 13 % N 10.5-15 Platelet Count 337 10^3/uL N 150-450 Mean Platelet Volume 8 um3 N 7.4-10.4 Abs Neutrophils 4.7 10^3/uL N 1.5-7.7 Abs Lymphocytes 3.1 10^3/uL N 1.0-4.8 Abs Monocytes 0.5 10^3/uL N 0-0.8 Abs Eosinophils 0.2 10^3/uL N 0-0.6 Abs Basophils 0.1 10^3/uL N 0-0.2 Abs Nucleated RBC 0 10^3/uL N Granulocyte % 54.7 % N 38-83 Lymphocyte % 35.5 % N 25-47 Monocyte % 6.1 % N 1-9 Eosinophil % 2.5 % N 0-6 Basophil % 1.2 % N 0-2 Nucleated Red Blood Cells % 0 N Comp Metabolic Panel 06/04/2016 [facility] Sodium 137 mmol/L N 133-[address] [place] [address] [phone] Potassium 4.2 mmol/L N 3.5-5.0 Chloride 103 mmol/L N 101-111 Co2 Carbon Dioxide 29 mmol/L N 22-32 Anion Gap 5 mmol/L N 2-11 Glucose 101 mg/dL High 70-100 Blood Urea Nitrogen 10 mg/dL N 6-24 Creatinine 0.72 mg/dL N 0.51-0.95 BUN/Creatinine Ratio 13.9 N 8-20 Calcium 9.7 mg/dL N 8.6-10.3 Total Protein 7.2 g/dL N 6.4-8.9 Albumin 4.3 g/dL N 3.2-5.2 Globulin 2.9 g/dL N 2-4 Albumin/Globulin Ratio 1.5 N 1-3 Total Bilirubin 0.40 mg/dL N 0.2-1.0 Alkaline Phosphatase 45 U/L N 34-104 Alt 10 U/L N 7-52 Ast 12 U/L Low 13-39 Egfr Non- 90.2 N >60 Egfr 116.0 N >60 41 Laboratory test 06/04/2016 [facility] TSH (Thyroid 1.89 mcIU/mL N 0.34-5.60 [address] Stim [place]orm) [place] [address] [phone] Vitamin B12 410 pg/mL N 180-914 43 Lyme Disease Serology Negative N Negative 44 Laboratory test 01/16/2016 [facility] Creatine 72 U/L N 10- 223 [address] Kinase(CK) [place] [address] [phone] Aldolase 5.8 U/L N <7.7 46 Cortisol 2.51 ?g/dL N 47 Hla B27 01/16/2016 [facility] Hla B27 Negative N [address] [place] [address] [phone] Hla B27 Interp See Comment N 49 Laboratory test 01/16/2016 [facility] Lyme Disease Negative N Negative [address] [place] [address] [phone] Cyclic Citrullinated Pep Igg TNP N 51 Erythrocyte Sed Rate 15 mm/Hr High 0-14 52 Celiac Panel 01/16/2016 [facility] Tissue Transglutaminase <1.2 U/mL N 53 [address] [place] [address] [phone] Immunoglobulin A 384 mg/dL Abnormal 61 - 356 Celiac Interpretation See Comment N 54 Connective Tissue 01/16/2016 [facility] Anti-Nuclear 0.4 U N [address] [place] [address] [phone] Cyclic Citrullinated Peptide <15.6 U N 56 Interpretation See Comment N 57 Iron & Iron Binding 01/16/2016 [facility] Iron 70 g/dL N 50- 212 [address] [place] [address] [phone] Unsaturated Iron Binding 307 g/dL N Total Iron Binding Capacity 377 g/dL N 250-450 % Iron Saturation 19 % N 15-55 Hepatitis 01/16/2016 [facility] Hepatitis B Nonreactive N Nonreactive Acute Panel 101 [facility] [place] [address] Antigen [phone] Hepatitis B Core IgM Nonreactive N Nonreactive Hepatitis C Antibody Nonreactive N Nonreactive Hepatitis A AB IgM Nonreactive N Nonreactive Laboratory test 01/16/2016 [facility] Magnesium 2.0 mg/dL N 1.9-2.7 58 finding [address] [place], [place] [id number] [phone] Vitamin B12 504 pg/mL N 180-914 59 Celiac Hla DQ1/DQ2 01/16/2016 [facility] Hla-Dqa1 SEE BELOW N 60 [address] [place] [address] [phone] Hla-DQB1 SEE BELOW N 61 Celiac Gene Pairs Present? Yes N Celiac Gene Interpretation See Comment N 62 Comp Metabolic Panel 01/16/2016 [facility] Sodium 136 mmol/L N 133-145 [address] [place] [address] [phone] Potassium 4.4 mmol/L N 3.5-5.0 Chloride 101 mmol/L N 101-111 Co2 Carbon Dioxide 27 mmol/L N 22-32 Anion Gap 8 mmol/L N 2-11 Glucose 79 mg/dL N 70-100 Blood Urea Nitrogen 9 mg/dL N 6-24 Creatinine 0.72 mg/dL N 0.51-0.95 BUN/Creatinine Ratio 12.5 N 8-20 Calcium 9.0 mg/dL N 8.6-10.3 Total Protein 6.8 g/dL N 6.4-8.9 Albumin 4.2 g/dL N 3.2-5.2 Globulin 2.6 g/dL N 2-4 Albumin/Globulin Ratio 1.6 N 1-3 Total Bilirubin 0.30 mg/dL N 0.2-1.0 Alkaline Phosphatase 49 U/L N 34-104 Alt 74 U/L High 7-52 Ast 44 U/L High 13-39 Egfr Non- 90.2 N >60 Egfr 116.0 N >60 63 CBC Auto Diff 01/16/2016 [facility] White Blood 7.2 10^3/uL N 3.5-10.[address] [place] [address] [phone] Red Blood Count 4.28 10^6/uL N 4.0-5.4 Hemoglobin 13.7 g/dL N 12.0-16.0 Hematocrit 40 % N 35-47 Mean Corpuscular Volume 93 fL N 80-97 Mean Corpuscular Hemoglobin 32 pg High 27-31 Mean Corpuscular HGB Conc 34 g/dL N 31-36 Red Cell Distribution Width 14 % N 10.5-15 Platelet Count 278 10^3/uL N 150-450 Mean Platelet Volume 8 um3 N 7.4-10.4 Abs Neutrophils 3.6 10^3/uL N 1.5-7.7 Abs Lymphocytes 2.9 10^3/uL N 1.0-4.8 Abs Monocytes 0.5 10^3/uL N 0-0.8 Abs Eosinophils 0.1 10^3/uL N 0-0.6 Abs Basophils 0.1 10^3/uL N 0-0.2 Abs Nucleated RBC 0 10^3/uL N Granulocyte % 49.9 % N 38-83 Lymphocyte % 39.7 % N 25-47 Monocyte % 7.6 % N 1-9 Eosinophil % 1.7 % N 0-6 Basophil % 1.1 % N 0-2 Nucleated Red Blood Cells % 0 N Vitamin D 1,25 01/16/2016 [facility] Vitamin D Total 34.5 ng/mL N 30-50 64 And Vitamin D,[address] 25(Oh) [place] [address] [phone] Vitamin D, 1,25 Dihydroxy 57 pg/mL N 18-78 65 Laboratory test 01/16/2016 [facility] Rheumatoid Factor <15 IU/ mL N <15 [address] [place] [address] [phone] Uric Acid 4.8 mg/dL N 2.3-6.6 67 TSH (Thyroid Stim Horm) 2.73 mcIU/mL N 0.34-5.60 68 1 No interferon-gamma response to M. tuberculosis antigens was detected. Infection with M. tuberculosis is unlikely. A single negative result does not exclude infection with M. tuberculosis. In patients at high risk for M.tuberculosis infection, a second test should be considered in accordance with the 2017 ATS/IDSA/CDC Clinical Practice Guidelines for Diagnosis of Tuberculosis in Adults and Children [Jareninsjeancarlosn DM et. al. Clin. Infect. Dis. 2017;64(2):111-115]. 2 Test Performed by: [facility] [address] [place] [address] 3 Please check labs today 4 Because ethnic data is not always readily available, this report includes an eGFR for both -Americans and non- Americans. The National Kidney Disease Education Program (NKDEP) does not endorse the use of the MDRD equation for patients that are not between the ages of 18 and 70, are , have extremes of body size, muscle mass, or nutritional status, or are non- or non-. According to the National Kidney Foundation, irrespective of diagnosis, the stage of the disease is based on the level of kidney function: Stage Description GFR(mL/min/1.73 m(2)) 1 Kidney damage with normal or decreased GFR 90 2 Kidney damage with mild decrease in GFR 60-89 3 Moderate decrease in GFR 30-59 4 Severe decrease in GFR 15-29 5 Kidney failure <15 (or dialysis) 5 AM 8.7-22.4 PM <10 6 Please check labs today 7 No bands detected 8 No bands detected 9 Specific serologic response to B. burgdorferi infection is not detected, but cannot rule out early infection during which low or undetectable antibody levels to B. burgdorferi may be present. If clinically indicated, a new serum specimen should be submitted in 7-14 days. ADDITIONAL INFORMATION Per CDC criteria, the Lyme IgG Immunoblot is interpreted as positive if IgG-class antibodies are detected to >=5 B. burgdorferi proteins, and the Lyme IgM Immunoblot is interpreted as positive if IgM-class antibodies are detected to >=2 B. burgdorferi proteins. Immunoblot patterns not meeting these criteria should not be interpreted as positive. Epitopes from certain B. burgdorferi proteins (e.g., p41) are conserved across other bacteria, which may lead to the detection of IgM- and/or IgG-class antibodies on the Lyme disease immunoblots in patients without Lyme disease. Immunoblot should only be ordered on specimens that are positive or equivocal by a FDA-licensed Lyme disease antibody screening test (e.g., EIA). Results of the Lyme IgM immunoblot should not be considered in patients with >=30 days of symptoms. Test Performed by: [facility] [address] [place] [address] 10 Please check this week 11 Please check this week 12 Because ethnic data is not always readily available, this report includes an eGFR for both -Americans and non- Americans. The National Kidney Disease Education Program (NKDEP) does not endorse the use of the MDRD equation for patients that are not between the ages of 18 and 70, are , have extremes of body size, muscle mass, or nutritional status, or are non- or non-. According to the National Kidney Foundation, irrespective of diagnosis, the stage of the disease is based on the level of kidney function: Stage Description GFR(mL/min/1.73 m(2)) 1 Kidney damage with normal or decreased GFR 90 2 Kidney damage with mild decrease in GFR 60-89 3 Moderate decrease in GFR 30-59 4 Severe decrease in GFR 15-29 5 Kidney failure <15 (or dialysis) 13 Please check this week 14 Please check this week 15 Normal Range 180 to 914 Indeterminate Range 145 to 180 Deficient Range <145 16 ADDITIONAL INFORMATION This test was developed and its performance characteristics determined by [facility] in a manner consistent with CLIA requirements. This test has not been cleared or approved by the U.S. Food and Drug Administration. Test Performed by: [facility] - [address] [address] 17 Please check this week 18 Please check this week 19 Please check this week 20 Normal Range 180 to 914 Indeterminate Range 145 to 180 Deficient Range <145 21 Please check this week 22 ADDITIONAL INFORMATION This test was developed and its performance characteristics determined by [facility] in a manner consistent with CLIA requirements. This test has not been cleared or approved by the U.S. Food and Drug Administration. Test Performed by: [facility] - [address] [address] 23 Because ethnic data is not always readily available, this report includes an eGFR for both -Americans and non- Americans. The National Kidney Disease Education Program (NKDEP) does not endorse the use of the MDRD equation for patients that are not between the ages of 18 and 70, are , have extremes of body size, muscle mass, or nutritional status, or are non- or non-. According to the National Kidney Foundation, irrespective of diagnosis, the stage of the disease is based on the level of kidney function: Stage Description GFR(mL/min/1.73 m(2)) 1 Kidney damage with normal or decreased GFR 90 2 Kidney damage with mild decrease in GFR 60-89 3 Moderate decrease in GFR 30-59 4 Severe decrease in GFR 15-29 5 Kidney failure <15 (or dialysis) 24 Acute inflammation: >10.00 25 Because ethnic data is not always readily available, this report includes an eGFR for both -Americans and non- Americans. The National Kidney Disease Education Program (NKDEP) does not endorse the use of the MDRD equation for patients that are not between the ages of 18 and 70, are , have extremes of body size, muscle mass, or nutritional status, or are non- or non-. According to the National Kidney Foundation, irrespective of diagnosis, the stage of the disease is based on the level of kidney function: Stage Description GFR(mL/min/1.73 m(2)) 1 Kidney damage with normal or decreased GFR 90 2 Kidney damage with mild decrease in GFR 60-89 3 Moderate decrease in GFR 30-59 4 Severe decrease in GFR 15-29 5 Kidney failure <15 (or dialysis) 26 Because ethnic data is not always readily available, this report includes an eGFR for both -Americans and non- Americans. The National Kidney Disease Education Program (NKDEP) does not endorse the use of the MDRD equation for patients that are not between the ages of 18 and 70, are , have extremes of body size, muscle mass, or nutritional status, or are non- or non-. According to the National Kidney Foundation, irrespective of diagnosis, the stage of the disease is based on the level of kidney function: Stage Description GFR(mL/min/1.73 m(2)) 1 Kidney damage with normal or decreased GFR 90 2 Kidney damage with mild decrease in GFR 60-89 3 Moderate decrease in GFR 30-59 4 Severe decrease in GFR 15-29 5 Kidney failure <15 (or dialysis) 27 Please check labs this week 28 Acute inflammation: >10.00 29 Please check fasting 30 Acute inflammation: >10.00 31 REFERENCE VALUE <1.0 (Negative) 32 REFERENCE VALUE <1.0 (Negative) Test Performed by: [address] [address] 33 Therapeutic target for the treatment of diabetes Mellitus patients is <7% HBA1C, and in selective patients <6.0%.Please refer to [place] [employer] Diabetic care guidelines for further information. 34 Acute inflammation: >10.00 35 Because ethnic data is not always readily available, this report includes an eGFR for both -Americans and non- Americans. The National Kidney Disease Education Program (NKDEP) does not endorse the use of the MDRD equation for patients that are not between the ages of 18 and 70, are , have extremes of body size, muscle mass, or nutritional status, or are non- or non-. According to the National Kidney Foundation, irrespective of diagnosis, the stage of the disease is based on the level of kidney function: Stage Description GFR(mL/min/1.73 m(2)) 1 Kidney damage with normal or decreased GFR 90 2 Kidney damage with mild decrease in GFR 60-89 3 Moderate decrease in GFR 30-59 4 Severe decrease in GFR 15-29 5 Kidney failure <15 (or dialysis) 36 Test Performed by: [place] [address] Ticket Puller: Vickey Pulido II, M.D., Ph.D. 37 REFERENCE VALUE <20.0 (Negative) Test Performed by: [place] [address] Ticket Puller: Vickey Pulido II, M.D., Ph.D. 38 Please check in 1 month 39 Please check labs this week 40 Acute inflammation: >10.00 41 Because ethnic data is not always readily available, this report includes an eGFR for both -Americans and non- Americans. The National Kidney Disease Education Program (NKDEP) does not endorse the use of the MDRD equation for patients that are not between the ages of 18 and 70, are , have extremes of body size, muscle mass, or nutritional status, or are non- or non-. According to the National Kidney Foundation, irrespective of diagnosis, the stage of the disease is based on the level of kidney function: Stage Description GFR(mL/min/1.73 m(2)) 1 Kidney damage with normal or decreased GFR 90 2 Kidney damage with mild decrease in GFR 60-89 3 Moderate decrease in GFR 30-59 4 Severe decrease in GFR 15-29 5 Kidney failure <15 (or dialysis) 42 Please check labs this week 43 Normal Range 180 to 914 Indeterminate Range 145 to 180 Deficient Range <145 44 Serologic response to B. burgdorferi infection is not detected, but cannot rule out early infection during which low or undetectable antibody levels to B. burgdorferi may be present. If clinically indicated, a new serum specimen should be submitted in 7-14 days. Test Performed by: [place] [address] Ticket Puller: Vickey Pulido II, M.D., Ph.D. 45 please check this week 46 Test Performed by: [place] [address] Ticket Puller: Vickey Pulido II, M.D., Ph.D. 47 AM 8.7-22.4 PM <10 48 REFERENCE VALUE Not Applicable 49 RESULT: HLA-B27 antigen was not detected. ADDITIONAL INFORMATION Method: Flow Cytometry Performing Laboratory CLIA# [id number] Test Performed by: [place] [address] Ticket Puller: Vickey Pulido II, M.D., Ph.D. 50 A negative result does not exclude infection with Borrelia burgdorferi. Serologic testing as per CDC guidelines may be indicated. ADDITIONAL INFORMATION Laboratory developed test. Test Performed by: [place] [address] Ticket Puller: Vickey Pulido II, M.D., Ph.D. 51 Cancelled due to duplicate test on this order Test Performed by: [place] [address] Ticket Puller: Vickey Pulido II, M.D., Ph.D. 52 please check this week 53 REFERENCE VALUE <4.0 (Negative) Test Performed by: [place] [address] Ticket Puller: Vickey Pulido II, M.D., Ph.D. 54 Negative serology. Celiac disease unlikely. However, approximately 10% of patients with celiac disease are seronegative. Also, patients who are already adhering to a gluten-free diet may be seronegative. If celiac disease is highly clinically suspected, consider HLA-DQ typing. Test Performed by: [place] [address] Ticket Puller: Vickey Pulido II, M.D., Ph.D. 55 REFERENCE VALUE <=1.0 (Negative) 56 REFERENCE VALUE <20.0 (Negative) 57 Tests for antibodies to dsDNA and SUHAIL antigens are not performed automatically unless the ELY result is > or= 3.0 U. Studies performed at [facility] indicate that positive ELY results <3.0 U are rarely accompanied by positive second order tests. Test Performed by: [address] [address] Ticket Puller: Vickey Pulido II, M.D., Ph.D. 58 please check this week 59 Normal Range 180 to 914 Indeterminate Range 145 to 180 Deficient Range <145 60 RESULT: 05:01,05 REFERENCE VALUE Not Applicable 61 RESULT: 02:01,03:01 DQ Serologic Equivalent: 2,7 REFERENCE VALUE Not Applicable 62 These genes are permissive for celiac disease. The absence of HLA celiac permissive genes would make the presence of celiac disease unlikely. However, these genes can also be present in the normal population. ADDITIONAL INFORMATION Method: Molecular typing of HLA antigens performed using reverse SSOP and/or SSP methods, reported as serological equivalents and low to medium resolution molecular values. Performing Laboratory CLIA# [id number] Test Performed by: [place] [address] Ticket Puller: Vickey Pulido II, M.D., Ph.D. 63 Because ethnic data is not always readily available, this report includes an eGFR for both -Americans and non- Americans. The National Kidney Disease Education Program (NKDEP) does not endorse the use of the MDRD equation for patients that are not between the ages of 18 and 70, are , have extremes of body size, muscle mass, or nutritional status, or are non- or non-. According to the National Kidney Foundation, irrespective of diagnosis, the stage of the disease is based on the level of kidney function: Stage Description GFR(mL/min/1.73 m(2)) 1 Kidney damage with normal or decreased GFR 90 2 Kidney damage with mild decrease in GFR 60-89 3 Moderate decrease in GFR 30-59 4 Severe decrease in GFR 15-29 5 Kidney failure <15 (or dialysis) 64 please check this week 65 Test Performed by: [place] [address] Ticket Puller: Vickey Pulido II, M.D., Ph.D. 66 Test Performed by: [place] [address] Ticket Puller: Vickey Pulido II, M.D., Ph.D. 67 please check this week 68 please check this week Procedures Date Code Description Status 05/16/2018 61114 Trigger PT Inj(S) Single Or Multiple Points 1 Or 2 Muscles Completed 02/09/2016 12962 Polysomnography Sleep Staging 4+ Parameters Completed 02/03/2016 95135 Polysomnography Sleep Staging 4+ Parameters Completed 08/08/2015 59327 ECHO Transthoracic, Real-Time 2D With Doppler And Color Completed Flow 11/18/2010 51648 Visual funct screen test, automated Completed 11/18/2010 57008 Pure Tone-Air Condition Only Completed Encounters Type Date Location Provider Dx Diagnosis Office Visit 07/26/2018 Rheumatology Anne-Marie Mccormack0.50 Arthropathic 3:20p Services Of Kayden Jha psoriasis, unspecified M79.7 Fibromyalgia 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 psoriasis, unspecified M79.7 Fibromyalgia R53.83 Other fatigue M54.6 Pain in thoracic spine Office Visit 02/16/2018 Rheumatology Scott L40.50 Arthropathic 3:00p Services Of Kayden Severino M.D. psoriasis, unspecified M79.7 Fibromyalgia E87.5 Hyperkalemia R53.83 Other fatigue Z79.899 Other senior care (current) drug therapy Z23 Encounter for immunization Office Visit 12/07/2017 Rheumatology Scott Xie0.50 Arthropathic 11:20a Services Of Kayden Severino M.D. 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 psoriasis, unspecified M79.7 Fibromyalgia R53.83 Other fatigue M25.569 Pain in unspecified knee Office Visit 04/26/2017 Rheumatology Scott L40.50 Arthropathic 3:00p Services Of Kayden Severino M.D. 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 at Rheumatology Services Of [facility]08/19/2018 9:30 am - Mike White MD at Neurosurgery Services Of [facility]08/11/2018 10:30 am - Violet Rodriguez PA-C at Neurosurgery [facility]08/11/2018 10:30 am - Mike White MD at Neurosurgery [facility]08/03/2018 - Mike White, MDM50.122 Cervical disc disorder at C5- C6 level with radiculopathyFollow up:RV one week, one month, three months postop.M50.123 Cervical disc disorder at C6-C7 level with llinmmmvgqylyQ39.50 Arthropathic psoriasis, unspecified
--- OUTSIDE RECORDS SUMMARY | 2018-08-11 05:46 | XMS REPORT | Continuity of Care Document ---
:1975 External Reference #:[id number] Author Name DavidNicole arnold Care Team Providers Name Role Phone Citlalli Franklin MD Primary Care Physician Unavailable Payers Type Date Identification Numbers Payment Provider Subscriber Policy Number: [id number] Medicare Leanne Butler PayID: [id number] [address] [place] [address] Effective: 2015 Policy Number: [employer] Medicaid Leanne Butler [id number] Expires: 2018 Group Name: [id number] [address] [address] PayID: [id number] [place] [address] Expires: 2015 Policy Number: [id number] [facility] Leanne Butler PayID: [id number] [address] [address] Expires: 2018 Policy Number: [id number] [facility] Ppo Leanne Butler PayID: [id number] [place] [address] Effective: 2010 Policy Number: [id number] Blue Shield Ppo Leanne Butler Expires: 2010 PayID: [id number] [place] [address] Expires: 2018 [facility]ID: [id number] [facility] [address] [address] Effective: 2018 Policy Number: [id number] Medicaid Leanne Butler Group Name: 1 1 [address] PayID: [id number] [place] [address] Advance Directives Description No Information Available Problems Date Description Provider Status Onset: 12/12/2015 Disturbance in sleep behavior Natalie Martínez MD Active Family History Date Family Member(s) Problem(s) Comments General Diabetes General Rheumatoid Arthritis Father Chronic Obstructive Pulmonary Disease (COPD) Social History Type Date Description Comments Sex Unknown Marital Status Single Occupation Disabled ETOH Use Denies alcohol use Tobacco Use Start: Unknown Patient is a current smoker, smokes every day Smoking Status Reviewed: 07/26/18 Patient is a current smoker, smokes every day Exercise Type/Frequency Exercises rarely Allergies, Adverse Reactions, Alerts Description No Known Drug Allergies Medications Medication Date Status Form Strength Qnty SIG Indications Ordering Provider Adderall 07/11/19 Active Tablets 10mg 60tabs take 1 R53.83 Scott 19 tablet by Maycol, mouth two M.D. times daily -- maximum daily dose of 2 per day Baclofen 05/16/20 Active Tablets 10mg 14tabs take one L40.50 Scott 18 tablet by Maycol, mouth twice M.D. a day as needed for muscle spasms - avoid driving and other muscular relaxants M25.512 Ciclopirox 03/16/2018 Active Cream 0.77% 30gm apply to nail Scott Olamine daily as rylie Severino M.D. B12 Fast 02/16/2018 Active Tablets 5000mcg 90tabs sublingual Scott Dissolve Dispers daily Yudelka Severino Duloxetine HCL 02/15/[address] 30mg 90caps Take One Scott Part Capsule By Maycol Mouth Daily M.D. Along With 60 MG Dose Clobetasol 12/13/2017 [...] knee stabilization 715.19 Cymbalta 01/13/[address] 30mg 90caps please take one Scott Part [...] twice L40.50 Scott 05/09/2018 daily to your Maycol, M.D. shoulder region M25.512 Provigil 02/16/2018 - Hx Tablets 100mg 30tabs take one R53.83 Scott 04/20/2018 capsule/tablet Maycol, daily by mouth M.D. as needed for hypersomnia mdd 1(failed adderall) Enbrel Mini 09/09/2017 - Hx Solution 50mg/ml 3.920ml sq weekly L40.50 Scott 09/09/2017 Cartridge Maycol, M.D. Adderall 06/07/2017 - Hx Tablets 5mg 120tabs [...] as M79.1 Scott 01/13/2017 needed for Maycol, dryness of M.D. the mouth Estazolam 04/21/2016 - Hx Tablets 1mg 14tabs 1 po at G47.00 Marycarmen 10/13/2016 bedtime x 3 Cabrales, DNP, nights then RN, [employer]-BC off of 3 nights may repeat weekly Trazodone HCL 04/21/2016 - Hx Tablets 50mg 30tabs Take One M06.4 Scott 12/07/2017 Tablet By Cem Severino AT M.D. Bedtime as Needed For Insomnia [...] Provider No Injection 05/16/20 Administered Injection Scott Severino M.D. No Injection 05/16/20 Administered Injection Scott Severino M.D. Immunizations CPT Code Status Date Vaccine Reaction Lot # 38934 Given 02/16/2018 Pneumococcal Conjugate no immediate reaction [id number] Vaccine 13 Valent For noted Intramuscular Use 55813 Given 04/26/2017 Influenza Virus Vaccine, [id number] Quadrivalent, Split, Preservative Free 64850 Given 04/13/2016 Influenza Virus Vaccine, Quadrivalent, Split, Preservative Free Vital Signs Date Vital Result Comment 07/26/2018 3:28pm Height 66 inches 5'6" Weight [...] H/L Range Note Quantiferon Gold TB 04/29/2018 [facility] QuantiFERON Negative Negative [address] [place] [address] Plus [phone] TB1 Ag minus Nil Result 0 IU/mL TB2 Ag minus Nil Result 0 IU/mL TB Mitogen minus Nil Result 8.53 IU/mL TB Nil Result 0.01 IU/mL 2 Laboratory test 04/15/2018 [facility] C Reactive < 1.00 N < 8.01 [address] Protein mg/L [place], [place] [id number] [phone] Basic Metabolic 04/15/2018 [facility] Sodium 139 mmol/L N 135- [address] [place] [address] [phone] Potassium 4.3 mmol/L N 3.5-5.0 Chloride 105 mmol/L N 101-111 Co2 Carbon Dioxide 27 mmol/L N 22-32 Anion Gap 7 mmol/L N 2-11 Glucose 83 mg/dL N 70-100 Blood Urea Nitrogen 10 mg/dL N 6-24 Creatinine 0.69 mg/dL N 0.51-0.95 BUN/Creatinine Ratio 14.5 N 8-20 Calcium 9.9 mg/dL N 8.6-10.3 Egfr Non- 93.8 >60 Egfr 113.4 >60 4 Laboratory test finding 04/15/2018 [facility] Cortisol 7.70 g/ dL [address] [place] [address] [phone] Thyroperoxidase AB 0.70 IU/mL N <9 6 Lyme Western 01/19/2018 [facility] Lyme Disease Negative Negative [place] [address] [phone] Lyme Disease IgG Bands Present No bands detecte <SEE NOTE> kDa 7 Lyme Disease IgM Ab WB Negative Negative Lyme Disease IgM Bands Present No bands detecte <SEE NOTE> kDa 8 Lyme Disease Interpretation See Comment 9 Laboratory test 01/19/2018 [facility] Erythrocyte Sed 13 mm/Hr N 0-[address] [place] [address] [phone] C Reactive Protein 1.65 mg/L N <8.01 11 CBC Auto Diff 01/19/2018 [facility] White Blood 8.3 10^3/uL N 3.5-10.[address] [place] [address] [phone] Red Blood Count 4.29 10^6/uL N 4.00-5.40 [...] Cells % 0.1 Comp Metabolic Panel 01/19/2018 [facility] Sodium 140 mmol/L N 135-[address] [place] [address] [phone] Chloride 103 mmol/L N 101-111 Co2 Carbon [...] 7 mmol/L N 2-11 Laboratory test 01/19/2018 [facility] TSH (Thyroid 1.83 mcIU/mL N 0.34-5.60 [address] Stim [place]orm) [place] [address] [phone] Folic Acid (Folate) 8.22 ng/mL >3.99 14 Vitamin B12 344 pg/mL N 180-910 15 Vitamin D, 1,25 Dihydroxy 19 pg/mL 18- 16 Laboratory test 01/19/2018 [facility] Erythrocyte Sed 13 mm/Hr N 0-14 [address] [place] [address] [phone] C Reactive Protein 1.65 mg/L N <8.01 18 TSH (Thyroid Stim Horm) 1.83 mcIU/mL N 0.34-5.60 19 Vitamin B12 And 01/19/2018 [facility] Vitamin B12 344 pg/mL N 180-917 20 Folate Serum [address] [place] [address] [phone] Folic Acid (Folate) 8.22 ng/mL >3.99 21 Laboratory test 01/19/2018 [facility] Vitamin D, 19 pg/mL [address] 1,25 [place] [address] [phone] CBC Auto Diff 01/19/2018 [facility] White Blood 8.3 N 3.5- 10.[address] Count 10^3/[place] [address] [phone] Red Blood Count 4.29 10^6/uL N 4.00-5.40 [...] Cells % 0.1 Comp Metabolic Panel 01/19/2018 [facility] Sodium 140 mmol/L N 135-[address] [place] [address] [phone] Chloride 103 mmol/L N 101-111 Co2 Carbon [...] 7 mmol/L N 2-11 Laboratory test 07/29/2017 [facility] C Reactive < 1.00 N < 5.00 [address] Protein mg/[place] [address] [phone] Comp Metabolic 07/29/2017 [facility] Sodium 139 mmol/L N 133- [address] [place] [address] [phone] Potassium 4.5 mmol/L N 3.5-5.0 Chloride 104 [...] 110.1 >60 25 CBC Auto Diff 07/29/2017 [facility] White Blood 8.0 10^3/uL N 3.5-10.[address] [place] [address] [phone] Red Blood Count 4.25 10^6/uL N 4.0-5.4 [...] Blood Cells % 0.1 Laboratory test 07/29/2017 [facility] Erythrocyte Sed 20 mm/Hr High 0-[address] [place] [address] [phone] CBC Auto Diff 04/13/2017 [facility] White Blood 7.4 N 3.5- 10.[address] Count 10^3/[place] [address] [phone] Red Blood Count 4.20 10^6/uL N 4.0-5.4 [...] % 0.1 N Comp Metabolic Panel 04/13/2017 [facility] Sodium 135 mmol/L N 133-[address] [place] [address] [phone] Potassium 4.1 mmol/L N 3.5-5.0 Chloride 102 [...] 121.2 N >60 26 Laboratory test 04/13/2017 [facility] Creatine 54 U/L N 10- 223 [address] Kinase(CK) [place] [address] [phone] C Reactive Protein 2.57 mg/L N < 5.00 28 Laboratory test 12/09/2016 [facility] Erythrocyte Sed 28 mm/Hr High 0-14 [address] [place] [address] [phone] C Reactive Protein 3.97 mg/L N < 5.00 30 Ssa/SSB Abs Igg 12/09/2016 [facility] SS-A/Ro Antibody <0.2 U N [address] [place] [address] [phone] SS-B/La Antibody <0.2 U N 32 Laboratory test 12/09/2016 [facility] Hemoglobin A1c 5.2 % N Less than [address] (Glyco HGB) 6.0 [place] [address] [phone] Laboratory test 08/13/2016 [facility] C Reactive < 1.00 N < 5.00 [address] Protein mg/[place] [address] [phone] Erythrocyte Sed Rate 13 mm/Hr N 0-14 CBC W/Auto 08/13/2016 [facility] White Blood 9.6 10^3/uL N 3.5 -10.[address] [place] [address] [phone] Red Blood Count 4.51 10^6/uL N 4.0-5.4 [...] Cells % 0.1 N CMP Panel 08/13/2016 [facility] Sodium 136 mmol/L N 133-[address] [place] [address] [phone] Potassium 3.8 mmol/L N 3.5-5.0 Chloride 103 [...] 123.9 N >60 35 Laboratory test 06/04/2016 [facility] Rheumatoid Factor <15 IU/ mL N <15 [address] [place] [address] [phone] Cyclic Citrullinated Pep Igg <15.6 U N 37 Laboratory test 06/04/2016 [facility] Creatine 81 U/L N 10- 223 [address] Kinase(CK) [place] [address] [phone] Laboratory test 06/04/2016 [facility] Erythrocyte Sed 21 mm/Hr High 0-14 [address] [place] [address] [phone] C Reactive Protein 2.12 mg/L N < 5.00 40 CBC Auto Diff 06/04/2016 [facility] White Blood 8.6 10^3/uL N 3.5-10.[address] [place] [address] [phone] Red Blood Count 4.44 10^6/uL N 4.0-5.4 [...] % 0 N Comp Metabolic Panel 06/04/2016 [facility] Sodium 137 mmol/L N 133-[address] [place] [address] [phone] Potassium 4.2 mmol/L N 3.5-5.0 Chloride 103 [...] 116.0 N >60 41 Laboratory test 06/04/2016 [facility] TSH (Thyroid 1.89 mcIU/mL N 0.34-5.60 [address] Stim Horm) [place] [address] [phone] Vitamin B12 410 pg/mL N 180-914 43 Lyme Disease Serology Negative N Negative 44 Laboratory test 01/16/2016 [facility] Creatine 72 U/L N 10- 223 [address] Kinase(CK) [place] [address] [phone] Aldolase 5.8 U/L N <7.7 46 Cortisol 2.51 ?g/dL N 47 Hla B27 01/16/2016 [facility] Hla B27 Negative N [address] [place] [address] [phone] Hla B27 Interp See Comment N 49 Laboratory test 01/16/2016 [facility] Lyme Disease Negative N Negative [address] [place] [address] [phone] Cyclic Citrullinated Pep Igg TNP N 51 Erythrocyte Sed Rate 15 mm/Hr High 0-14 52 Celiac Panel 01/16/2016 [facility] Tissue Transglutaminase <1.2 U/mL N [address] [place] [address] [phone] Immunoglobulin A 384 mg/dL Abnormal 61 - 356 Celiac Interpretation See Comment N 54 Connective Tissue 01/16/2016 [facility] Anti-Nuclear 0.4 U N [address] [place] [address] [phone] Cyclic Citrullinated Peptide <15.6 U N 56 Interpretation See Comment N 57 Iron & Iron Binding 01/16/2016 [facility] Iron 70 g/dL N 50- 212 [address]acity [address] [place] [address] [phone] Unsaturated Iron Binding 307 g/dL N Total Iron Binding Capacity 377 g/dL N 250-450 % Iron Saturation 19 % N 15-55 Hepatitis 01/16/2016 [facility] Hepatitis B Nonreactive N Nonreactive Acute Panel [address] [place] [address] Antigen [phone] Hepatitis B Core IgM Nonreactive N Nonreactive Hepatitis C Antibody Nonreactive N Nonreactive Hepatitis A AB IgM Nonreactive N Nonreactive Laboratory test 01/16/2016 [facility] Magnesium 2.0 mg/dL N 1.9-2.7 58 finding [address] [place] [address] [phone] Vitamin B12 504 pg/mL N 180-914 59 Celiac Hla DQ1/DQ2 01/16/2016 [facility] Hla-Dqa1 SEE BELOW N 60 [address] [place] [address] [phone] Hla-DQB1 SEE BELOW N 61 Celiac Gene Pairs Present? Yes N Celiac Gene Interpretation See Comment N 62 Comp Metabolic Panel 01/16/2016 [facility] Sodium 136 mmol/L N 133-145 [address] [place] [address] [phone] Potassium 4.4 mmol/L N 3.5-5.0 Chloride 101 [...] N >60 63 CBC Auto Diff 01/16/2016 [facility] White Blood 7.2 10^3/uL N 3.5-10.[address] [place] [address] [phone] Red Blood Count 4.28 10^6/uL N 4.0-5.4 [...] % 0 N Vitamin D 1,25 01/16/2016 [facility] Vitamin D Total 34.5 ng/mL N 30-50 64 And Vitamin D,[address] 25(Oh) [place] [address] [phone] Vitamin D, 1,25 Dihydroxy 57 pg/mL N 18-78 65 Laboratory test 01/16/2016 [facility] Rheumatoid Factor <15 IU/ mL N <15 [address] [place] [address] [phone] Uric Acid 4.8 mg/dL N 2.3-6.6 67 [...] Diagnosis of Tuberculosis in Adults and Children [Lewinsohn JONAS et. al. Clin. Infect. Dis. 2017;64(2):111-115]. 2 Test Performed by: [facility] [address] [place] [address] 3 Please check labs today 4 Because [...] >=30 days of symptoms. Test Performed by: [facility] - [address] [address] 10 Please check this week 11 Please [...] developed and its performance characteristics determined by [facility] in a manner consistent with CLIA requirements. This test has not been cleared or approved by the U.S. Food and Drug Administration. Test Performed by: [facility] - [address] [address] 17 Please check this week 18 Please check this week 19 Please check this week 20 Normal Range 180 to 914 Indeterminate Range 145 to 180 Deficient Range <145 21 Please check this week 22 ADDITIONAL INFORMATION This test was developed and its performance characteristics determined by [facility] in a manner consistent with CLIA requirements. This test has not been cleared or approved by the U.S. Food and Drug Administration. Test Performed by: [facility] [address] [facility], [place] [address] 23 Because ethnic data is not always [...] REFERENCE VALUE <1.0 (Negative) Test Performed by: [place] [address] 33 Therapeutic target for the treatment of diabetes Mellitus patients is <7% HBA1C, and in selective patients <6.0%.Please refer to [place] [employer] Diabetic care guidelines for further [...] <15 (or dialysis) 36 Test Performed by: [place] [address] [facility] Worker: Vickey Pulido II, M.D., Ph.D. 37 REFERENCE VALUE <20.0 (Negative) Test Performed by: [place] [address] [facility] Worker: Vickey Pulido II, M.D., Ph.D. 38 Please [...] submitted in 7-14 days. Test Performed by: [place] [address] [facility] Worker: Vickey Pulido II, M.D., Ph.D. 45 please check this week 46 Test Performed by: [place] [address] [facility] Worker: Vickey Pulido II, M.D., Ph.D. 47 AM 8.7-22.4 PM <10 48 REFERENCE VALUE Not Applicable 49 RESULT: HLA-B27 antigen was not detected. ADDITIONAL INFORMATION Method: Flow Cytometry Performing Laboratory CLIA# [id number] Test Performed by: [place] [address] [facility] Worker: Vickey Pulido II, M.D., Ph.D. 50 A negative result does not exclude infection with Borrelia burgdorferi. Serologic testing as per CDC guidelines may be indicated. ADDITIONAL INFORMATION Laboratory developed test. Test Performed by: [place] [address] [facility] Worker: Vickey Pulido II, M.D., Ph.D. 51 Cancelled due to duplicate test on this order Test Performed by: [place] [address] [facility] Worker: Vickey Pulido II, M.D., Ph.D. 52 please check this week 53 REFERENCE VALUE <4.0 (Negative) Test Performed by: [place] [address] [facility] Worker: Vickey Pulido II, M.D., Ph.D. 54 Negative serology. Celiac disease unlikely. However, approximately 10% of patients with celiac disease are seronegative. Also, patients who are already adhering to a gluten-free diet may be seronegative. If celiac disease is highly clinically suspected, consider HLA-DQ typing. Test Performed by: [facility] - [address] [address] [facility]one Worker: Vickey Pulido II, M.D., Ph.D. 55 REFERENCE VALUE <=1.0 (Negative) 56 REFERENCE VALUE <20.0 (Negative) 57 Tests for antibodies to dsDNA and SUHAIL antigens are not performed automatically unless the ELY result is > or= 3.0 U. Studies performed at [facility] indicate that positive ELY results <3.0 U are rarely accompanied by positive second order tests. Test Performed by: [facility] [place] [address] [facility]one Worker: Vickey Pulido II, M.D., Ph.D. 58 please [...] medium resolution molecular values. Performing Laboratory CLIA# [id number] Test Performed by: [place] [address] [facility] Worker: Vickey Pulido II, M.D., Ph.D. 63 Because [...] check this week 65 Test Performed by: [place] [address] [facility] Worker: Vickey Pulido II, M.D., Ph.D. 66 Test Performed by: [place] [address] [facility] Worker: Vickey Pulido II, M.D., Ph.D. 67 please check this week 68 please check this week Procedures Date Code Description Status 05/16/2018 21740 Trigger PT Inj(S) Single Or Multiple Points 1 Or 2 Muscles Completed 02/09/2016 29047 Polysomnography Sleep Staging 4+ Parameters Completed 02/03/2016 86050 Polysomnography Sleep Staging 4+ Parameters Completed 08/08/2015 66285 ECHO Transthoracic, Real-Time 2D With Doppler And Color Completed Flow 11/18/2010 71729 Visual funct screen test, automated Completed 11/18/2010 07632 Pure Tone-Air Condition Only Completed Encounters Type Date Location Provider Dx Diagnosis Office Visit 06/20/2018 Neurosurgery Vassilios M50.122 Cervical disc 11:00a Services Of Kayden White MD disorder at C5-C6 level with radiculopathy M50.123 Cervical disc disorder at C6-C7 level with radiculopathy Office Visit 05/16/2018 Rheumatology Scott Xie0Shanna Arthropathic 3:40p Services Of Kayden Severino M.D. psoriasis, unspecified M79.7 Fibromyalgia R53.83 Other fatigue M54.6 Pain in thoracic spine Office Visit 02/16/2018 Rheumatology Scott Xie0Shanna Arthropathic 3:00p Services Of Kayden Severino M.D. psoriasis, unspecified M79.7 Fibromyalgia E87.5 Hyperkalemia R53.83 Other fatigue Z79.899 Other oysterman (current) drug therapy Z23 Encounter for immunization Office Visit 12/07/2017 Rheumatology Scott Xie0Shanna Arthropathic 11:20a [facility] Kayden Severino M.D. psoriasis, unspecified M79.7 Fibromyalgia R53.83 Other fatigue Z79.899 Other intermediate (current) drug therapy R51 Headache F17.210 Nicotine dependence, cigarettes, uncomplicated Office Visit 09/09/2017 Rheumatology Scott Xie0Shanna Arthropathic 9:00a [facility] Of Kayden Severino M.D. psoriasis, unspecified M79.7 Fibromyalgia R53.83 Other fatigue Z79.899 Other oysterman (current) drug therapy R51 Headache Office Visit 06/25/2017 Rheumatology Scott Quiñones Arthropathic 1:00p Services Of Kayden Severino M.D. psoriasis, unspecified M79.7 Fibromyalgia R53.83 Other fatigue M25.569 Pain in unspecified knee Office Visit 04/26/2017 Rheumatology Scott Quiñones Arthropathic 3:00p Services Of Kayden Severino M.D. psoriasis, unspecified M79.7 Fibromyalgia M15.9 Polyosteoarthritis, unspecified Z79.899 Other oysterman (current) drug therapy Z23 Encounter for immunization Office Visit 01/13/2017 Rheumatology Scott Quiñones Arthropathic 9:00a Services Of Kayden Severino M.D. psoriasis, unspecified M79.7 Fibromyalgia M15.9 Polyosteoarthritis, unspecified Z79.899 Other oysterman (current) drug therapy Office Visit 10/13/2016 Rheumatology Scott Xie0Shanna Arthropathic 11:40a Services Of Kayden Severino M.D. 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 psoriasis, unspecified M79.1 Myalgia M54.5 Low back pain Z79.899 Other intermediate (current) drug therapy Office Visit 04/21/2016 1:15p Pulmonology And Marycarmen G47.9 Sleep disorder, Sleep Services Of ANTONIO Cabrales, RN, unspecified [facility]- G47.00 Insomnia, unspecified G47.14 Hypersomnia due to medical condition Office Visit 04/21/2016 Rheumatology Scott M06.4 Inflammatory 2:00p Services Of Kayden Severino M.D. polyarthropathy Z79.899 Other oysterman (current) drug therapy M54.5 Low back pain R20.8 Other disturbances of skin sensation M79.7 Fibromyalgia Office Visit 02/20/2016 1:40p Rheumatology Services Cassandra Mccormack79.1 Myalgia Of [place] [employer] M.DYoshi M06.4 Inflammatory polyarthropathy Z79.899 Other oysterman (current) drug therapy M54.5 Low back pain Office Visit 01/23/2016 1:20p Rheumatology Services Scott Severino M79.1 Myalgia Of [employer] M.D. M06.4 Inflammatory polyarthropathy M54.5 Low back pain Z79.899 Other oysterman (current) drug therapy R74.8 Abnormal levels of other serum enzymes R53.1 Weakness Office Visit 01/02/2016 2:00p Rheumatology Services Cassandra Mccormack79.1 Myalgia Of [employer] M.DYoshi M06.4 Inflammatory polyarthropathy Z79.899 Other oysterman (current) drug therapy M54.5 Low back pain M54.6 Pain in thoracic spine R20.8 Other disturbances of skin sensation L30.9 Dermatitis, unspecified F17.210 Nicotine dependence, cigarettes, uncomplicated Office Visit 12/12/2015 11:30a Pulmonology And Natalie G47.9 Sleep disorder, Sleep Services Of MD Mauricio unspecified [facility] Plan of Treatment Future Appointment(s):10/24/2018 1:20 pm - Scott Severino M.D. at Rheumatology [facility]08/19/2018 9:30 am - Mike White MD at Neurosurgery [facility]08/03/2018 11:00 am - Mike White MD at Neurosurgery [facility]08/11/2018 10:30 am - Violet Rodriguez PA-C at Neurosurgery [facility]08/11/2018 10:30 am - Mike White MD at Neurosurgery [facility]08/10/2018 11:15 am - Bony Sandoval M.D. at [facility]07/26/2018 - Scott Severino M.D.L40.50 Arthropathic psoriasis, hgxuglivpaqD71.7 FibromyalgiaComments:Hold Sulfasalazine 2 days before surgery and please do not take Enbrel. Once surgery is finished and your wound has completely healed you may start Enbrel again; this generally occurs 2 to 4 weeks after your upcoming surgeryFollow up:Follow up in 2 or 3 months or sooner if nmesydC64.899 Other intermediate (current) drug bjkzwffC11.123 Cervical disc disorder at C6-C7 level with radiculopathy
--- OUTSIDE RECORDS SUMMARY | 2018-08-11 05:47 | XMS REPORT | Continuity of Care Document ---
:1975 External Reference #:[id number] Author Name Citlalli Franklin M.D. Address [address] [facility] [place] [address] Care Team Providers Name Role Phone Citlalli Franklin M.D. 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 Primary Care Physician Unavailable Payers Type Date Identification Numbers Payment Provider Subscriber Effective: 2017 Policy Number: [id number] [place] Fahey PayID: [id number] [address] [place] [address] Effective: 2015 Policy Number: [id number] [facility] PayID: [id number] [address] [address] [place] [address] Effective: 2017 Policy Number: [id number] [place] Expires: 2018 PayID: [id number] [address] [place] [address] Advance Directives Description No Information Available Problems Date Description Provider Status Onset: 03/21/2015 Constipation Rachel Kenney M.D. Active Onset: 03/21/2015 Tobacco user Rachel Kenney M.D. Active Onset: 04/22/2015 Moderate recurrent major depression Citlalli Franklin M.D. Active Onset: 04/22/2015 Chronic pain syndrome Citlalli Franklin M.D. Active Onset: 04/22/2015 Fibromyalgia Citlalli Franklin M.D. Active Onset: 04/22/2015 Disorder of connective tissue Citlalli Franklin M.D. Active Onset: 10/30/2015 Malaise and fatigue Karmen Schumacher Active Onset: 06/01/2018 Psoriatic arthritis Citlalli Franklin M.D. Active Onset: 06/01/2018 Brachial neuritis Citlalli Franklin M.D. Active Family History Date Family Member(s) Problem(s) Comments Father Colon Cancer Father Diabetes Mellitus, II Father Chronic Obstructive Pulmonary Disease (COPD) Mother Unremarkable Children 2 First Son Unremarkable First Daughter ADHD Siblings 3 First Brother due to Auto Accident () Second Brother Unremarkable Third Brother Unremarkable Paternal Grandfather due to Unknown Causes () Paternal Grandmother due to Unknown Causes () Maternal Grandfather due to Diabetes () - 91 yo Maternal Grandmother due to Alzheimer's Disease () - 70's Social History Type Date Description Comments Sex Unknown Marital Status Legal Status: Never Marital Status Legal Status: Domestic male 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 Tobacco Use Start: Unknown Current Cigarette Smoker 1/2 Pack Daily ETOH Use Denies alcohol use Recreational Drug Use Denies Drug Use Tobacco Use Reviewed: 03/21/15 Patient is a current about 15 a day. smoker, smokes every day Smoking Status Reviewed: 06/01/18 Patient is a current about 15 a day. smoker, smokes every day Exercise Type/Frequency Exercises rarely Seat Belt/Car Seat Always uses seat belt Allergies, Adverse Reactions, Alerts Description No Known Drug Allergies Medications Medication Date Status Form Strength Qnty SIG Indications Ordering Provider Nicorette Active Gum 2mg 220unit 1 unit by Citlalli Calles s mouth every [place], 2 hours prn M.D. , don't swallow Chantix Active Tablets 1mg 56tabs 1 tab by F17.210 Citlalli Goncalves 019 mouth twice [place], Month Angel a day M.D. 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 Times A Day M79.7 Ciclopirox 11/30/2014 Active Cream 0.77% 30units apply to B35.3 Aure Olamine affected [place], area(s) two [employer] times a day to feet as needed Oxycodone HCL Active Tab ER 12H 20mg 4-6 qd G89.4 Unknown ER Abuse-Det Amitiza Active Capsules 24mcg 1 twice a day K59.09 Unknown as needed constipation per Dr Danielle Diclofenac Active Tablets DR 25mg 3 twice a day Unknown Sodium Sulfasalazine Active Tablets 500mg 2 by mouth Unknown twice a day Tizanidine HCL Active Capsules 4mg 1 po bid Unknown Fentanyl Active Patches 75mcg/ apply new G89.4 Unknown 72HR HR patch every 3 days M79.7 Adderall Active Tablets 5mg take 1 by Unknown mouth as needed for afternoon and evening symptoms Enbrel Active Soln Prefill 50mg/ once a week Unknown Syringe ml Cymbalta 06/23/2017 - Hx Caps DR Sanchez 30mg 3 by mouth F3 [facility] 06/01/2018 every day 3. Rigoberto, 1 M.D. Medroxyprogesterone 06/23/2017 - Hx Suspension 150mg 1 ml Im q 3 Z0 Aure Acetate 06/01/2018 /ml months 1. Khushboo, 41 [employer] 9 Nicotine 04/08/2016 - Hx Patches 24HR 21mg/ 28 Apply 1 Patch Z7 [facility] 06/22/2017 24HR un To Skin Daily, 1. [place] Remove Prior 6 M.D. s Patch Imiquimod 04/08/2016 - Hx Cream 5% 24 Apply To A6 [facility] 06/22/2017 un Affected 3. [place] Area(S) In 0 M.D. s Groin 3 Times A Week AT Bedtime Physical Therapy 12/30/2015 - Hx evaluate and Sravani 12/30/2015 treat low back 9. FRANCES Archuleta pain 7 Aqua Therapy 12/30/2015 - Hx For treatment M7 Sravani 04/08/2016 of 9. FRANCES Archuleta fibromyalgia 7 Fentanyl 09/17/2015 - Hx Patches 72HR 37.5m Dr Danielle G8 [facility] 04/08/2016 cg/HR 9. Rigoberto, 4 M.D. M79.7 Methotrexate 06/25/2015 - Hx Tablets 2.5mg 4 tab by M35.9 Citlalli 04/08/2016 mouth [place], every week M.D. Gabapentin 06/03/2015 - Hx Capsules 300mg 90ca 1 tab by F33.1 Citlalli 06/25/2015 ps mouth [place], three M.D. times a day Senna 06/03/2015 - Hx Tablets 8.6mg 60ta 2 tab K59.09 [facility] 04/08/2016 bs every day [place], as needed M.D. Fentanyl 04/22/2015 - Hx Patches 72HR 25mcg/HR Dr Danielle G89.4 Citlalli 09/17/2015 Yudelka Franklin M79.7 Docusate 04/22/2015 - Hx Capsules 100mg 60caps 1-2 by K59.09 [facility] Sodium 04/08/2016 mouth twice [place], a day as M.D. needed hard stools Cymbalta 04/22/2015 - Hx Caps DR 60mg 30caps Take Two F33.1 [facility] 06/23/2017 Part Capsules By Rigoberto, Mouth Every M.D. Day Augmentin 03/21/2015 - Hx Tablets 875-125m 20tabs 1 by mouth 382.9 Rachel L. 04/22/2015 g twice a day [place], with yogurt M.D. or kefir. Miralax 03/21/2015 - Hx Powder [id number] 1Bottle 17 gm 564.00 Rachel L. 09/18/2015 powder in [place], fluid daily M.D. prn K59.09 Off Work Note 03/21/2015 - Hx medical 382.9 Rachel L. 03/21/2015 04/22/2015 excuse. Yudelka Kenney Chantix 11/30/2014 - Hx Tablets 0.5mg 1pac use as F17.210 Sravani Starting Month 06/25/2015 X 11 & k directed FRANCES Archuleta Angel 1 mg X 42 Lexapro 11/30/2014 - Hx Tablets 20mg 30ta Take One F33.1 Citlalli 06/22/2017 bs Tablet By Yudelka Franklin Mouth Every Day Cymbalta - Hx Caps DR 60mg 30ca 1 by mouth 729.1 Sravani 03/21/2015 Part ps every day FRANCES Archuleta Plaquenil - Hx Tablets 200mg take one M35.9 Unknown 06/22/2017 tablet by mouth twice a day Lexapro - Hx Tablets 10mg 1 by mouth Sravani 11/30/2014 every day FRANCES Archuleta Meloxicam - Hx Tablets 7.5mg 60ta 1 by mouth M79.7 Citlalli 04/08/2016 bs twice a day Yudelka Franklin Fentanyl - Hx Patches 50mcg/ G89.4 Unknown 06/23/2017 72HR HR M79.7 Immunizations CPT Code Status Date Vaccine Lot # [id number] Given 06/01/2018 Tdap Tetanus, W Pertussis [id number] Given 04/08/2016 Influenza Vac, Quadrivalent, Slit Virus, Im [id number] Given 03/21/2015 Influenza Vac, Quadrivalent, Slit Virus, Im [id number] Vital Signs Date Vital Result Comment 07/20/2018 3:56pm BP Systolic 102 mmHg BP Diastolic 68 mmHg Heart Rate 72 /min Body Temperature 98.2 F Respiratory Rate 16 /min Height 66.5 inches 5'6.50" Weight 149.00 lb BMI (Body Mass Index) 23.7 kg/m2 06/01/2018 1:52pm BP Systolic 112 mmHg BP Diastolic 76 mmHg Heart Rate 100 /min Body Temperature 98.8 F Respiratory Rate 16 /min Height 66.5 inches 5'6.50" Weight 144.00 lb BMI (Body Mass Index) 22.9 kg/m2 06/23/2017 1:50pm BP Systolic 120 mmHg BP Diastolic 68 mmHg Heart Rate 84 /min Body Temperature 97.5 F Height 66.5 inches 5'6.50" Weight 158.25 lb BMI (Body Mass Index) 25.2 kg/m2 04/08/2016 3:56pm BP Systolic 126 mmHg BP Diastolic 70 mmHg Heart Rate 96 /min Body Temperature 97.7 F Respiratory Rate 16 /min Height 66.5 inches 5'6.50" Weight 172.12 lb BMI (Body Mass Index) 27.4 kg/m2 12/30/2015 10:53am BP Systolic 150 mmHg BP Diastolic 80 mmHg Heart Rate 96 /min Body Temperature 98.9 F Height 66.5 inches 5'6.50" Weight 170.25 lb BMI (Body Mass Index) 27.1 kg/m2 11/25/2015 10:07am BP Systolic 112 mmHg BP Diastolic 60 mmHg Heart Rate 80 /min Body Temperature 97.9 F Respiratory Rate 16 /min Height 66.5 inches 5'6.50" Weight 173.00 lb BMI (Body Mass Index) 27.5 kg/m2 10/30/2015 10:51am BP Systolic 92 mmHg BP Diastolic 60 mmHg Heart Rate 88 /min Body Temperature 98.6 F Respiratory Rate 18 /min Height 66.5 inches 5'6.50" Weight 171.50 lb BMI (Body Mass Index) 27.3 kg/m2 10/23/2015 10:33am BP Systolic 106 mmHg BP Diastolic 60 mmHg Heart Rate 102 /min Body Temperature 97.0 F Respiratory Rate 16 /min Height 66.5 inches 5'6.50" Weight 171.50 lb BMI (Body Mass Index) 27.3 kg/m2 09/18/2015 9:46am BP Systolic 112 mmHg BP Diastolic 60 mmHg Heart Rate 72 /min Body Temperature 97.2 F Respiratory Rate 16 /min Height 66.5 inches 5'6.50" Weight 171.00 lb BMI (Body Mass Index) 27.2 kg/m2 08/19/2015 9:33am BP Systolic 110 mmHg BP Diastolic 70 mmHg Heart Rate 80 /min Respiratory Rate 16 /min Height 66.5 inches 5'6.50" Weight 174.00 lb BMI (Body Mass Index) 27.7 kg/m2 07/19/2015 10:46am BP Systolic 110 mmHg BP Diastolic 64 mmHg Heart Rate 72 /min Body Temperature 98.2 F Respiratory Rate 16 /min Height 66.5 inches 5'6.50" Weight 174.00 lb BMI (Body Mass Index) 27.7 kg/m2 06/25/2015 4:10pm BP Systolic 110 mmHg BP Diastolic 64 mmHg Heart Rate 88 /min Body Temperature 98.3 F Respiratory Rate 16 /min Height 66.5 inches 5'6.50" Weight 179.00 lb BMI (Body Mass Index) 28.5 kg/m2 06/03/2015 9:04am BP Systolic 122 mmHg BP Diastolic 78 mmHg Heart Rate 68 /min Body Temperature 97.4 F Respiratory Rate 16 /min Height 66.5 inches 5'6.50" Weight 183.00 lb BMI (Body Mass Index) 29.1 kg/m2 04/22/2015 10:06am BP Systolic 114 mmHg BP Diastolic 64 mmHg Heart Rate 76 /min Respiratory Rate 16 /min Height 66.5 inches 5'6.50" Weight 187.00 lb BMI (Body Mass Index) 29.7 kg/m2 03/21/2015 11:38am BP Systolic 122 mmHg BP Diastolic 80 mmHg Heart Rate 62 /min Body Temperature 98.6 F Respiratory Rate 18 /min Height 66.5 inches 5'6.50" Weight 182.00 lb BMI (Body Mass Index) 28.9 kg/m2 11/30/2014 9:04am BP Systolic 122 mmHg BP Diastolic 76 mmHg Heart Rate 68 /min Body Temperature 97.5 F Respiratory Rate 16 /min Height 66.5 inches 5'6.50" Weight 189.00 lb BMI (Body Mass Index) 30.0 kg/m2 Results Test Date Facility Test Result H/L Range Note Basic Metabolic Panel 04/15/2018 [facility] [place]odium 139 mmol/L N 135-145 Potassium 4.3 mmol/L N 3.5-5.0 Chloride 105 mmol/L N 101-111 Co2 Carbon Dioxide 27 mmol/L N 22-32 Anion Gap 7 mmol/L N 2-11 Glucose 83 mg/dL N 70-100 Blood Urea Nitrogen 10 mg/dL N 6-24 Creatinine 0.69 mg/dL N 0.51-0.95 BUN/Creatinine Ratio 14.5 N 8-20 Calcium 9.9 mg/dL N 8.6-10.3 Egfr Non- 93.8 >60 Egfr 113.4 >60 1 Laboratory test finding 04/15/2018 [facility] [place] Reactive Protein < 1.00 mg/L N < 8.01 2 Cortisol 7.70 g/dL 3 Thyroperoxidase AB 0.70 IU/mL N <9 4 Lyme Western Blot 01/19/2018 [facility] [place]yme Disease IgG Ab WB Negative Negative Lyme Disease IgG Bands Present No bands detecte <SEE NOTE> kDa 5 Lyme Disease IgM Ab WB Negative Negative Lyme Disease IgM Bands Present No bands detecte <SEE NOTE> kDa 6 Lyme Disease Interpretation See Comment 7 Comp Metabolic Panel 01/19/2018 [facility] Sodium 140 mmol/L N 135-145 Chloride 103 mmol/L N 101-111 Co2 Carbon [...] Egfr Non- 93.8 >60 Egfr 113.4 >60 8 Potassium 5.2 mmol/L High 3.5-5.0 Anion Gap 7 mmol/L N 2-11 Laboratory test finding 01/19/2018 [facility] [place] Reactive Protein 1.65 mg/L N < 8.01 9 TSH (Thyroid Stim Horm) 1.83 mcIU/mL N 0.34-5.60 10 Folic Acid (Folate) 8.22 ng/mL >3.99 11 Vitamin B12 344 pg/mL N 180-914 12 CBC Auto Diff 01/19/2018 [facility] [place] White Blood Count 8.3 10^3/uL N 3.5-10.8 Red Blood Count 4.29 10^6/uL N 4.00-5.40 [...] Red Blood Cells % 0.1 Laboratory test finding 01/19/2018 [facility] [place] Erythrocyte Sed Rate 13 mm/Hr N 0- 14 13 Vitamin D, 1,25 Dihydroxy 19 pg/mL 18-78 14 Laboratory test 07/29/2017 [facility] [place] Erythrocyte Sed Rate 20 mm/Hr High 0-14 finding CBC Auto Diff 07/29/2017 [facility] [place] White Blood Count 8.0 10^3/uL N 3.5-10.8 Red Blood Count 4.25 10^6/uL N 4.0-5.4 [...] Red Blood Cells % 0.1 Laboratory test finding 07/29/2017 [facility] [place] Reactive Protein < 1.00 mg/L N < 5.00 15 Comp Metabolic Panel 07/29/2017 [facility] [place] Sodium 139 mmol/L N 133-145 Potassium 4.5 mmol/L N 3.5-5.0 Chloride 104 [...] Egfr Non- 85.6 >60 Egfr 110.1 >60 16 Laboratory test 06/23/2017 [facility] [place] Cytology Thinprep SEE RESULT 17 [place] w[place] [place] Complete Blood 10/30/2015 [facility] (a) WBC 7.7 x10^3/UL 3.6-9.6 Count RBC 4.56 x10^6/UL 3.90-5.70 HGB 15.1 g/dL 12.1-17.2 HCT 43 % 36-50 MCV 95.0 fL 82.2-97.4 MCH 33.1 pg 27.6-33.3 MCHC 35.0 g/dL 33.0-35.5 RDW 13.6 % 11.6-13.7 PLT 309 x10^3/UL 150-400 MPV 6.8 fL Low 7.4-10.4 Gran # 5.6 x10^3/UL 1.5-7.2 Lymph# 1.9 x10^3/UL 0.7-4.9 [place]# 0.2 x10^3/UL 0.1-0.9 Gran % 71.0 % 42.2-75.2 Lymph % 25.1 % 20.5-51.1 [place]% 3.9 % 1.7-9.3 Comprehensive Metabolic 10/30/2015 [facility] ([facility]) Sodium 137 mEq/L 134-149 Prof Potassium 4.0 mEq/L 3.6-5.5 Chloride 97 mEq/L 94-112 Carbon Dioxide 28 mEq/L 21-32 Glucose 115 mg/dL High 70-105 18 BUN 10 mg/dL 6-26 Creatinine 0.6 mg/dL 0.6-1.4 BUN/Creat Ratio 16.7 CALC 8.0-36.0 Calcium 9.8 mg/dL 8.6-10.2 Total Protein 7.2 g/dL 6.4-8.3 Albumin 4.4 g/dL 3.8-5.5 Globulin 2.8 g/dL 2.0-4.8 A/G Ratio 1.6 CALC 0.6-2.3 Alk. Phosphatase 54 U/L 30-110 Alt (SGPT) 36 U/L High 7-35 Ast (Sgot) 25 U/L 5-34 Total Bilirubin 0.3 mg/dL 0.2-1.3 GFR Non- >60 ml/min/1.73m^ >=60 GFR >60 ml/min/1.73m^ >=60 Laboratory test 10/30/2015 [facility] ([facility]) Free T4 0.85 ng/dL 0.75- 1.54 finding TSH 1.02 mIU/L 0.50-6.00 Lyme AB/Western 10/30/2015 [facility] Lyme IgG/IgM <0.91 ISR 0.00-0.90 19 , 20 Blot Reflex [id number] [facility] [place] [address] ([phone] - Lyme Disease Ab, Quant, IgM <0.80 index 0.00-0.79 21 1 Because ethnic data is not always readily [...] 15-29 5 Kidney failure <15 (or dialysis) 2 Please check labs today 3 AM 8.7-22.4 PM <10 4 Please check labs today 5 No bands detected 6 No bands detected 7 Specific serologic response to B. burgdorferi infection [...] >=30 days of symptoms. Test Performed by: [facility] [address] [place] [address] 8 Because ethnic data is not always readily [...] 15-29 5 Kidney failure <15 (or dialysis) 9 Please check this week 10 Please check this week 11 Please check this week 12 Normal Range 180 to 914 Indeterminate Range 145 to 180 Deficient Range <145 13 Please check this week 14 ADDITIONAL INFORMATION This test was developed and its performance characteristics determined by [facility] in a manner consistent with CLIA requirements. This test has not been cleared or approved by the U.S. Food and Drug Administration. Test Performed by: [facility] [address] [place] [address] 15 Acute inflammation: >10.00 16 Because ethnic data is not always readily [...] 15-29 5 Kidney failure <15 (or dialysis) 17 SEE RESULT BELOW Name: LEANNE BUTLER : [address]: Aure Cuello NP Acct: [id number] Unit: [id number] AGE: 41 Location: [facility] Re06/23/17 SEX: F Status: REG REF SPEC: [id number] CONSTANCE: 06/23/17-1451 [facility] DR: Aure Cuello NP REQ: [id number] RECD: 06/23/17 STATUS: SOUT _ ORDERED: TP IMAGE ANAL, HPV/Thin Prep, HPV 16/18 GENE COMMENTS: [id number] Negative for Intraepithelial lesion or Malignancy Shift in blanca suggestive of bacterial vaginosis A. Ectocervical/Endocervical Specimen Adequacy: Satisfactory of evaluation Transformation zone component identified Patient Information: HPV: High risk HPV RNA testing regardless of pap results. HPV 16/18 Genotype Reflex Actual Specimen Date: 06/23/17 Last Menstrual Date: 06/14/17 Spec Date if unknown: 2012 ?: N Post Menopausal?: N Hysterectomy?: N Previous Abnormal Pap Smears?:N Date Time Test Result Flag (u) Normal Range 06/23/17 3411 @ HPV RNA RFLX GE Negative Negative @ @ The high-risk HPV types detected by the assay include: 16, @ 18, 31, 33, 35, 39, 45, 51, 52, 56, 58, 59, 66, and 68. Signed (signature on file) BONIFACIO Almanza (ASCP) 06/24 1430 This Pap test was evaluated with the assistance of the GlioPrep Test Imaging System. Due to cytologic findings at the regulatory affairs strategy specialist microscope, comprehensive manual rescreening by a Wiring Mechanic may be required. The Pap Smear is a screening test designed to aid in the detection of premalignant and malignant conditions of the uterine cervix. It is not a diagnostic procedure and should not be used as the sole means of detecting cervical cancer. Both false- positive and false- negative reports do occur. Depending on your risk status, a Pap smear should be obtained and evaluated every 1-3 years. END OF REPORT * ML=Testing performed at Main Lab DEPARTMENT OF PATHOLOGY, [address] [place] [address] Neno Jensen M.D. Director [facility] # [id number] 18 NON-FASTING 19 1 sst 20 Negative <0.91 Equivocal 0.91 - 1.09 Positive >1.09 21 Negative <0.80 Equivocal 0.80 - 1.19 Positive >1.19 IgM levels may peak at 3-6 weeks post infection, then gradually decline. Procedures Description No Information Available Encounters Type Date Location Provider Dx Diagnosis Office Visit 06/01/2018 [facility] Office Citlalli Franklin Z00.01 Encounter for 1:40p M.D. general adult medical exam w abnormal findings Z12.31 Encntr screen mammogram for malignant neoplasm of breast G89.4 Chronic pain syndrome M79.7 Fibromyalgia L23.1 Allergic contact dermatitis due to adhesives Z23 Encounter for immunization M54.12 Radiculopathy, cervical region R63.4 Abnormal weight loss Office Visit 06/23/2017 2:00p Main Office KEVIN Urrutia Z01.419 Encntr for product development coordinator exam (general) (routine) w/o abn findings Z12.31 Encntr screen mammogram for malignant neoplasm of breast L40.8 Other psoriasis Office Visit 04/08/2016 4:00p [facility] Office Citlalli Franklin, G89.4 Chronic pain M.D. syndrome M79.7 Fibromyalgia F33.1 Major depressive disorder, recurrent, moderate A63.0 Anogenital (venereal) warts Z71.6 Tobacco abuse counseling F17.210 Nicotine dependence, cigarettes, uncomplicated Z23 Encounter for immunization Office Visit 12/30/2015 11:00a [facility] Office Sravani Archuleta NP M79.7 Fibromyalgia G89.4 Chronic pain syndrome F33.1 Major depressive disorder, recurrent, moderate F51.8 Oth sleep disord not due to a sub or known physiol cond Office Visit 11/25/2015 10:15a [facility] Office Sravani Archuleta NP M79.7 Fibromyalgia G89.4 Chronic pain syndrome F33.1 Major depressive disorder, recurrent, moderate F51.8 Oth sleep disord not due to a sub or known physiol cond K59.09 Other constipation M35.9 Systemic involvement of connective tissue, unspecified Office Visit 10/30/2015 10:45a [facility] Office Marycarmen [place], R53.83 Other fatigue Afnp-C M79.7 Fibromyalgia G89.4 Chronic pain syndrome F33.1 Major depressive disorder, recurrent, moderate Office Visit 10/23/2015 10:40a [facility] Office Citlalli Franklin, G89.4 Chronic pain M.D. syndrome M35.9 Systemic involvement of connective tissue, unspecified M79.7 Fibromyalgia F51.8 Oth sleep disord not due to a sub or known physiol cond Office Visit 09/18/2015 9:30a [facility] Office Citlalli Franklin, G89.4 Chronic pain M.D. syndrome M35.9 Systemic involvement of connective tissue, unspecified M79.7 Fibromyalgia F51.8 Oth sleep disord not due to a sub or known physiol cond Office Visit 08/19/2015 9:20a [facility] Office Citlalli Franklin, G89.4 Chronic pain M.D. syndrome M35.9 Systemic involvement of connective tissue, unspecified M79.7 Fibromyalgia F33.1 Major depressive disorder, recurrent, moderate Office Visit 07/19/2015 10:30a [facility] Citlalli Franklin M.D. M79.7 Fibromyalgia G89.4 Chronic pain syndrome F33.1 Major depressive disorder, recurrent, moderate R01.1 Cardiac murmur, unspecified F51.8 Oth sleep disord not due to a sub or known physiol cond Office Visit 06/25/2015 4:30p Main Office Citlalli Rigoberto, F33.1 Major depressive M.D. disorder, recurrent, moderate M79.7 Fibromyalgia G89.4 Chronic pain syndrome F17.210 Nicotine dependence, cigarettes, uncomplicated M35.9 Systemic involvement of connective tissue, unspecified Office Visit 06/03/2015 9:00a [facility] Citlalli Rigoberto, F33.1 Major depressive M.D. disorder, recurrent, moderate M79.7 Fibromyalgia G89.4 Chronic pain syndrome F17.210 Nicotine dependence, cigarettes, uncomplicated K59.09 Other constipation Office Visit 04/22/2015 10:00a [facility] Office Citlalli Franklin M.D. 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 Will fax note to ordering physician. HOLD NSAIDS and supplements 5-7 days prior to ezadednC60.12 Radiculopathy, cervical regionComments:discuss regarding pain meds after surgery with Dr White and ChpkqO08.4 Chronic pain syndromeComments:stable on zwgelqrW67.7 FibromyalgiaComments:follow with Dr Danielle/QglrrsO35.8 Other psoriasisComments: stop enbrel until cleared by surgeon to fhaensV78.210 Nicotine dependence, cigarettes, uncomplicatedNew Medication:Chantix Continuing Month Angel 1 mg - 1 tab by mouth twice a day (start after starter pack completes)Comments:Patient was counselled on the importance of smoking cessation great cutting back, try using gum in meantimeAllComments:~B_~U_Medication Management~b_~u_ Patient Understands medications she's taking? Yes No Are there Barriers to Adherence? Yes No Has the patient been asked about herbal supplements and therapies, and OTC meds? Yes No
--- OUTSIDE RECORDS SUMMARY | 2018-08-11 05:47 | XMS REPORT | Continuity of Care Document ---
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 Primary Care Physician Unavailable Payers Type Date Identification Numbers Payment Provider Subscriber Policy Number: [id number] [place] Leanne Butler PayID: [id number] [address] [place] [address] Effective: 2016 Policy Number: [id number] Medicaid [place] Leanne Butler PayID: [id number] [address] [place] [address] Effective: 2017 Policy Number: Total Care/[facility] Leanne Butler [id number] Expires: 2018 PayID: [id number] [address] [address] [place] [address] Effective: 2013 Policy Number: [id number] [facility] Expires: 2015 PayID: [id number] [address] [address] [place] Kaur [address] Effective: 2015 Policy Number: [id number] [place] Leanne Butler Expires: 2015 PayID: [id number] [address] [address] [place] Kaur [address] Effective: 2015 Policy Number: [id number] [place] Leanne Butler Expires: 2015 PayID: [id number] [address] [place] [address] Advance Directives Description No Information Available Problems Description No Information Family History Date Family Member(s) Problem(s) Comments Father 71 Mother 68 Children 2 Siblings 3 Grandchildren None Social History Type Date Description Comments Sex Unknown Marital Status Significant Other 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 Cigarette Use Current Cigarette Smoker 1 Pack Daily ETOH Use Rarely consumes alcohol Tobacco Use Start: Unknown Patient is a current smoker, smokes every day Smoking Status Reviewed: 07/22/18 Patient is a current smoker, smokes every day Allergies, Adverse Reactions, Alerts Date Description Reaction Status Severity Comments 06/18/2014 Oxymorphone Active itching 09/18/2013 NKDA Inactive Medications Medication Date Status Form Strength Qnty SIG Indications Ordering Provider Fentanyl 02/11 Active Patches 75mcg/HR 10uni si by Shashi 72HR ts mouth q72h Art, as DO, MPH directed chronic pain patient, mylan brand only Zanaflex 05/15 Active Capsules 4mg 60cap si/2-1 Shashi s by mouth Art, three DO, MPH times a day as directed chronic pain patient Amitiza 01/30 Active Capsules 24mcg 60cap si by Shashi s mouth Art, twice a DO, MPH day Oxycodone HCL 01/15 Active Tablets 20mg 180ta si-2 Danielle bs by mouth Art, every 4 to DO, MPH 6 hours as directed chronic pain patient Cymbalta Active Caps DR 30mg 30cap 1 by mouth Unknown / Part s every 8 hours as directed Flonase Allergy Active Suspension 50mcg/Act Unknown Relief Gabapentin Active Capsules 300mg si by Unknown /0000 mouth three times a day as directed Trazodone HCL Active Tablets 50mg si Unknown 0000 tablet by mouth every night at bedtime as directed Sulfasalazine Active Tablets 500mg 1 by mouth Unknown / three times daily Diclofenac Sodium Active Tablets DR 75mg one by Unknown /0000 mouth twice daily Amphetamine-Dextr Active Tablets 5mg 1 by mouth Unknown oamphetamine /0000 every day as directed Enbrel Active Soln 50mg/ml weekly Unknown Prefill Syringe Hydroxychloroquin Active Tablets 200mg 1 by mouth Unknown e Sulfate daily Fentanyl 12/31 Hx Patches 37.5mcg/H 10uni si Danielle 72HR R ts patch Art, - every 48 DO, MPH 12/31 hours directed chronic pain. Mylan brand patch only Fentanyl 12/30 Hx Patches 50mcg/HR 10uni si Danielle 72HR ts applied Art, - q72h as DO, MPH 02/11 directed chronic pain patient, mylan brand only Fentanyl 11/24 Hx Patches 50mcg/HR 10uni si Danielle 72HR ts applied Art, - q72h DO, MPH 12/31 replacemen t script documented reaction Amitiza 08/23 Hx Capsules 8mcg 60cap si Danielle s twice a Art, - day DO, MPH 01/30 Fentanyl 08/23 Hx Patches 37.5mcg/H 15uni si Danielle 72HR R ts patch Art, - every 48 DO, MPH 11/24 hours directed chronic pain. increase dose Medrol (Angel) 07/12 Hx Tablets 4mg 21tab sig: as Danielle s directed Art, - DO, MPH 07/25 Fentanyl 06/24 Hx Patches 25mcg/HR 10uni si Danielle 72HR ts applied Art, - q48h as DO, MPH 08/23 chronic pain patient Movantik 06/24 Hx Tablets 25mg 30tab 1 by mouth Danielle, s in the Art, - morning DO, MPH 08/23 Duragesic-25 02/08 Hx Patches 25mcg/HR 15uni si Danielle 72HR ts applied Art, - q48h as DO, MPH 06/24 chronic pain patient Oxycodone HCL 01/30 Hx Tablets 15mg 180ta si-2 by Danielle, bs mouth Art, - every 4-6 DO, MPH / hours directed chronic pain patient Fentanyl 01/10 Hx Patches 37.5mcg/H 12uni si Danielle 72HR R ts patch Art, - every 48 DO, MPH 07/29 hours directed chronic pain. increase dose Skelaxin 11/08 Hx Tablets 800mg 90tab take 1/2 Danielle, s to 1 Art, - tablet by , MPH 03/11 mouth every 8 hours as directed chronic pain. Fentanyl 07/16 Hx Patches 25mcg/HR 15uni si Danielle 72HR ts applied Art, - q48h as , MPH 01/10 directed chronic pain patient yaron lund Oxycontin 07/13 Hx T12a 10mg 60uni take 1 po Danielle, ts [id number] Art, - ud chronic , MPH 07/16 pain patient Oxycodone HCL 07/13 Hx Tablets 10mg 180ta si by Danielle, bs mouth Art, - every 4 to DO, MPH 01/30 6 hours as directed chronic pain patient Opana 06/14 Hx Tablets 5mg 120ta si po Danielle, bs q4-6h ud Art, - DO, MPH 06/18 chronic pain patient Oxycodone HCL 05/14 Hx Tablets 10mg 90tab si po Danielle, s q8h ud Art, - DO, MPH 07/13 chronic pain patient Oxycodone HCL 03/13 Hx Tablets 10mg 180ta si-2 po Danielle bs q6h ud Art, - DO, MPH 05/14 chronic pain patient Oxycontin 03/12 Hx T12a 10mg 60uni take 1 po Danielle, ts q12 hours Art, - ud chronic DO, MPH 03/12 pain patient Nucynta ER 03/12 Hx Tablets ER 50mg 60tab 1 po q12h Danielle, 12HR s jennifer Art, - DO, MPH 03/13 Oxycodone HCL 11/15 Hx Tablets 10mg 120ta si po Danielle, bs q6h ud Art, - DO, MPH 03/12 chronic pain patient Oxycodone HCL 10/16 Hx Tablets 5mg 90tab si po Danielle, s q8h ud Art, - DO, MPH 11/15 chronic pain patient Oxycodone HCL 10/02 Hx Tablets 5mg 90tab si po Danielle, s q8h Sienna Cordova DO, MPH 10/16 chronic pain patient Duloxetine HCL 09/[address] 60mg 60cap 1 po q12 Danielle, Part s [facility] Sienna Cordova DO, MPH 09/12 Lyrica Hx Capsules 75mg 60cap sipo Unknown /0000 s Tid - 09/18 chronic pain patient Metaxalone Hx Tablets 800mg 1 PO 4 Unknown /0000 Times - Daily 06/24 Zolpidem Tartrate Hx Tablets 5mg 5tabs si po Unknown /0000 qhs - 06/24 Meloxicam Hx Tablets 7.5mg 30tab si-3 Unknown /0000 s by mouth - every day 01/30 Folic Acid Hx Tablets 1mg 30tab daily Unknown /0000 s - 05/12 Senna Lax Hx Tablets 8.6mg 30tab daily Unknown /0000 s - 05/12 Methotrexate Hx Tablets 2.5mg 16tab 4x a week Unknown /0000 s - 01/30 Lunesta Hx Tablets 1mg Unknown /0000 - 10/16 Provigil Hx Tablets 200mg si by Unknown /0000 mouth - every 04/24 morning directed Immunizations Description No Information Available Vital Signs Date Vital Result Comment 07/22/2018 9:39am BP Systolic 132 mmHg BP Diastolic 84 mmHg Heart Rate 86 /min Respiratory Rate 20 /min Height 68 inches 5'8" Weight 150.00 lb Pain Level 8 Pain at this time. Pain Level With Medicine 7 on average with meds Pain Level Without Medicine 10 04/13 without meds BMI (Body Mass Index) 22.8 kg/m2 06/24/2018 11:53am BP Systolic 126 mmHg BP Diastolic 84 mmHg Heart Rate 86 /min Respiratory Rate 20 /min Height 68 inches 5'8" Weight 145.00 lb Pain Level 9 Pain at this time. Pain Level With Medicine 8 on average with meds Pain Level Without Medicine 10 04/13 without meds BMI (Body Mass Index) 22.0 kg/m2 05/24/2018 2:30pm BP Systolic 140 mmHg BP Diastolic 88 mmHg Heart Rate 84 /min Respiratory Rate 20 /min Height 68 inches 5'8" Weight 148.00 lb Pain Level 8 Pain at this time. Pain Level With Medicine 7 on average with meds Pain Level Without Medicine 10 04/13 without meds BMI (Body Mass Index) 22.5 kg/m2 04/26/2018 2:35pm BP Systolic 144 mmHg BP Diastolic 86 mmHg Heart Rate 88 /min Respiratory Rate 20 /min Height 68 inches 5'8" Weight 140.00 lb Pain Level 8 Pain at this time. Pain Level With Medicine 7 on average with meds Pain Level Without Medicine 10 04/13 without meds BMI (Body Mass Index) 21.3 kg/m2 04/18/2018 10:44am BP Systolic 136 mmHg BP Diastolic 86 mmHg Heart Rate 84 /min Respiratory Rate 20 /min Height 68 inches 5'8" Weight 144.00 lb Pain Level 9 Pain at this time. Pain Level With Medicine 8 on average with meds Pain Level Without Medicine 10 04/13 without meds BMI (Body Mass Index) 21.9 kg/m2 03/24/2018 3:29pm BP Systolic 120 mmHg BP Diastolic 74 mmHg Heart Rate 76 /min Respiratory Rate 20 /min Height 68 inches 5'8" Weight 144.00 lb Pain Level 6 Pain at this time. Pain Level With Medicine 5 on average with meds Pain Level Without Medicine 10 04/13 without meds BMI (Body Mass Index) 21.9 kg/m2 02/22/2018 2:42pm BP Systolic 136 mmHg BP Diastolic 88 mmHg Heart Rate 86 /min Respiratory Rate 20 /min Height 68 inches 5'8" Weight 144.00 lb Pain Level 7 Pain at this time. Pain Level With Medicine 6 on average with meds Pain Level Without Medicine 10 04/13 without meds BMI (Body Mass Index) 21.9 kg/m2 01/21/2018 2:29pm BP Systolic 118 mmHg BP Diastolic 78 mmHg Heart Rate 74 /min Respiratory Rate 20 /min Height 68 inches 5'8" Weight 147.00 lb Pain Level 6 Pain at this time. Pain Level With Medicine 5 on average with meds Pain Level Without Medicine 10 04/13 without meds BMI (Body Mass Index) 22.3 kg/m2 12/23/2017 3:09pm BP Systolic 126 mmHg BP Diastolic 78 mmHg Heart Rate 74 /min Respiratory Rate 20 /min Height 68 inches 5'8" Weight 147.00 lb Pain Level 7 Pain at this time. Pain Level With Medicine 6 on average with meds Pain Level Without Medicine 10 04/13 without meds Pain Level After Procedure 6 BP Systolic Recheck 124 mmHg Pulse:72 BP Diastolic Recheck 70 mmHg Pulse:72 BMI (Body Mass Index) 22.3 kg/m2 2017 3:02pm BP Systolic 116 mmHg BP Diastolic 74 mmHg Heart Rate 76 /min Respiratory Rate 20 /min Height 68 inches 5'8" Weight 147.00 lb Pain Level 7 Pain at this time. Pain Level With Medicine 6 on average with meds Pain Level Without Medicine 10 04/13 without meds BMI (Body Mass Index) 22.3 kg/m2 10/15/2017 2:37pm BP Systolic 120 mmHg BP Diastolic 74 mmHg Heart Rate 72 /min Respiratory Rate 20 /min Height 68 inches 5'8" Weight 155.00 lb Pain Level 4 Pain at this time. Pain Level With Medicine 4 on average with meds Pain Level Without Medicine 10 04/13 without meds BMI (Body Mass Index) 23.6 kg/m2 09/16/2017 1:52pm BP Systolic 120 mmHg BP Diastolic 74 mmHg Heart Rate 76 /min Respiratory Rate 20 /min Height 68 inches 5'8" Weight 156.00 lb Pain Level 8 Pain at this time. Pain Level With Medicine 7 on average with meds Pain Level Without Medicine 10 04/13 without meds BMI (Body Mass Index) 23.7 kg/m2 08/13/2017 11:03am BP Systolic 128 mmHg BP Diastolic 76 mmHg Heart Rate 74 /min Respiratory Rate 20 /min Height 68 inches 5'8" Weight 156.00 lb Pain Level 7 Pain at this time. Pain Level With Medicine 6 on average with meds Pain Level Without Medicine 10 04/13 without meds BMI (Body Mass Index) 23.7 kg/m2 07/15/2017 11:58am BP Systolic 118 mmHg BP Diastolic 70 mmHg Heart Rate 72 /min Respiratory Rate 18 /min Height 68 inches 5'8" Weight 154.00 lb Pain Level 8 Pain at this time. Pain Level With Medicine 7 on average with meds Pain Level Without Medicine 10 04/13 without meds Pain Level After Procedure 6 BP Systolic Recheck 120 mmHg Pulse: 76 BP Diastolic Recheck 74 mmHg Pulse: 76 BMI (Body Mass Index) 23.4 kg/m2 06/15/2017 11:27am BP Systolic 126 mmHg BP Diastolic 74 mmHg Heart Rate 72 /min Respiratory Rate 20 /min Height 68 inches 5'8" Weight 156.00 lb Pain Level 6 Pain at this time. Pain Level With Medicine 5 on average with meds Pain Level Without Medicine 04/13 without meds BMI (Body Mass Index) 23.7 kg/m2 05/14/2017 2:55pm BP Systolic 124 mmHg BP Diastolic 80 mmHg Heart Rate 84 /min Respiratory Rate 20 /min Height 68 inches 5'8" Weight 156.00 lb Pain Level 7 Pain at this time. Pain Level With Medicine 6 on average with meds Pain Level Without Medicine 04/13 without meds BMI (Body Mass Index) 23.7 kg/m2 04/13/2017 3:00pm BP Systolic 122 mmHg BP Diastolic 74 mmHg Heart Rate 76 /min Respiratory Rate 20 /min Height 68 inches 5'8" Weight 156.00 lb Pain Level 7 Pain at this time. Pain Level With Medicine 6 on average with meds Pain Level Without Medicine 04/13 without meds Pain Level After Procedure 5 BP Systolic Recheck 128 mmHg Pulse: 84 BP Diastolic Recheck 86 mmHg Pulse: 84 BMI (Body Mass Index) 23.7 kg/m2 03/11/2017 2:32pm BP Systolic 122 mmHg BP Diastolic 70 mmHg Heart Rate 74 /min Respiratory Rate 20 /min Height 68 inches 5'8" Weight 154.00 lb Pain Level 7 Pain at this time. Pain Level With Medicine 7 on average with meds Pain Level Without Medicine 04/13 without meds BMI (Body Mass Index) 23.4 kg/m2 02/11/2017 8:58am BP Systolic 126 mmHg BP Diastolic 78 mmHg Heart Rate 74 /min Respiratory Rate 20 /min Height 68 inches 5'8" Weight 157.00 lb Pain Level 4 Pain at this time. Pain Level With Medicine 4 on average with meds Pain Level Without Medicine 10 04/13 without meds BMI (Body Mass Index) 23.9 kg/m2 01/13/2017 2:44pm BP Systolic 128 mmHg BP Diastolic 80 mmHg Heart Rate 88 /min Respiratory Rate 18 /min Height 68 inches 5'8" Weight 163.00 lb Pain Level 8 Pain at this time. Pain Level With Medicine 6 on average with meds Pain Level Without Medicine 10 04/13 without meds BMI (Body Mass Index) 24.8 kg/m2 12/11/2016 1:03pm BP Systolic 122 mmHg BP Diastolic 70 mmHg Heart Rate 74 /min Respiratory Rate 20 /min Height 68 inches 5'8" Weight 158.00 lb Pain Level 8 Pain at this time. Pain Level With Medicine 7 on average with meds Pain Level Without Medicine 10 04/13 without meds BMI (Body Mass Index) 24.0 kg/m2 11/12/2016 2:56pm BP Systolic 122 mmHg BP Diastolic 74 mmHg Heart Rate 72 /min Respiratory Rate 20 /min Height 68 inches 5'8" Weight 159.00 lb Pain Level 6 Pain at this time. Pain Level With Medicine 6 on average with meds Pain Level Without Medicine 10 04/13 without meds BMI (Body Mass Index) 24.2 kg/m2 10/16/2016 11:02am BP Systolic 122 mmHg BP Diastolic 74 mmHg Heart Rate 70 /min Respiratory Rate 20 /min Height 68 inches 5'8" Weight 153.00 lb Pain Level 6 Pain at this time. Pain Level With Medicine 5 on average with meds Pain Level Without Medicine 10 04/13 without meds BMI (Body Mass Index) 23.3 kg/m2 09/14/2016 3:08pm BP Systolic 128 mmHg BP Diastolic 78 mmHg Heart Rate 80 /min Respiratory Rate 20 /min Height 68 inches 5'8" Weight 166.00 lb Pain Level 9 Pain at this time. Pain Level With Medicine 9 on average with meds Pain Level Without Medicine 10 04/13 without meds BMI (Body Mass Index) 25.2 kg/m2 08/14/2016 2:17pm BP Systolic 128 mmHg BP Diastolic 80 mmHg Heart Rate 76 /min Respiratory Rate 16 /min Height 68 inches 5'8" Weight 171.00 lb Pain Level 7 7/10, Pain at this time. Pain Level With Medicine 7 7/10, on average with meds Pain Level Without Medicine 10 04/13 without meds BMI (Body Mass Index) 26.0 kg/m2 07/13/2016 11:16am BP Systolic 122 mmHg BP Diastolic 74 mmHg Heart Rate 76 /min Respiratory Rate 18 /min Height 68 inches 5'8" Weight 17.00 lb Pain Level 7 Pain at this time. Pain Level With Medicine 6 on average with meds Pain Level Without Medicine 10 04/13 without meds BMI (Body Mass Index) 2.6 kg/m2 06/11/2016 11:37am BP Systolic 132 mmHg BP Diastolic 78 mmHg Heart Rate 80 /min Respiratory Rate 20 /min Height 68 inches 5'8" Pain Level Without Medicine 10 04/13 without meds 05/15/2016 1:50pm BP Systolic 132 mmHg BP Diastolic 86 mmHg Heart Rate 84 /min Respiratory Rate 20 /min Height 68 inches 5'8" Weight 174.00 lb Pain Level 8 Pain at this time. Pain Level With Medicine 8 on average with meds Pain Level Without Medicine 10 04/13 without meds Pain Level After Procedure 3 BP Systolic Recheck 124 mmHg Pulse: 80 BP Diastolic Recheck 76 mmHg Pulse: 80 BMI (Body Mass Index) 26.5 kg/m2 05/12/2016 11:26am BP Systolic 148 mmHg BP Diastolic 86 mmHg Heart Rate 84 /min Respiratory Rate 18 /min Height 68 inches 5'8" Weight 174.00 lb Pain Level 7 Pain at this time. Pain Level With Medicine 6 on average with meds Pain Level Without Medicine 10 04/13 without meds BMI (Body Mass Index) 26.5 kg/m2 04/10/2016 1:38pm BP Systolic 158 mmHg BP Diastolic 78 mmHg Heart Rate 80 /min Respiratory Rate 18 /min Height 68 inches 5'8" Weight 174.00 lb Pain Level 9 Pain at this time. Pain Level With Medicine 8 on average with meds Pain Level Without Medicine 10 04/13 without meds BMI (Body Mass Index) 26.5 kg/m2 03/13/2016 1:23pm BP Systolic 126 mmHg BP Diastolic 74 mmHg Heart Rate 72 /min Respiratory Rate 18 /min Height 68 inches 5'8" Weight 174.00 lb Pain Level 7 Pain at this time. Pain Level With Medicine 5 on average with meds Pain Level Without Medicine 10 04/13 without meds BMI (Body Mass Index) 26.5 kg/m2 02/28/2016 1:26pm BP Systolic 126 mmHg BP Diastolic 78 mmHg Heart Rate 74 /min Respiratory Rate 18 /min Height 68 inches 5'8" Weight 169.00 lb Pain Level 7 Pain at this time. Pain Level With Medicine 6 on average with meds Pain Level Without Medicine 10 04/13 without meds BMI (Body Mass Index) 25.7 kg/m2 02/12/2016 9:04am BP Systolic 122 mmHg BP Diastolic 76 mmHg Heart Rate 74 /min Respiratory Rate 20 /min Height 68 inches 5'8" Weight 171.00 lb Pain Level 7 Pain at this time. Pain Level With Medicine 6 on average with meds Pain Level Without Medicine 10 04/13 without meds BMI (Body Mass Index) 26.0 kg/m2 01/31/2016 1:57pm BP Systolic 124 mmHg BP Diastolic 76 mmHg Heart Rate 74 /min Respiratory Rate 18 /min Height 68 inches 5'8" Weight 171.00 lb Pain Level 7 Pain at this time. Pain Level With Medicine 6 on average with meds Pain Level Without Medicine 10 04/13 without meds BMI (Body Mass Index) 26.0 kg/m2 01/16/2016 11:51am BP Systolic 136 mmHg BP Diastolic 80 mmHg Heart Rate 80 /min Respiratory Rate 18 /min Height 68 inches 5'8" Weight 174.00 lb Pain Level 9 Pain at this time. Pain Level With Medicine 8 on average with meds Pain Level Without Medicine 10 04/13 without meds BMI (Body Mass Index) 26.5 kg/m2 12/31/2015 12:00pm BP Systolic 128 mmHg BP Diastolic 82 mmHg Heart Rate 80 /min Respiratory Rate 20 /min Height 68 inches 5'8" Weight 170.00 lb Pain Level 7 Pain at this time. Pain Level With Medicine 6 on average with meds Pain Level Without Medicine 10 04/13 without meds BMI (Body Mass Index) 25.8 kg/m2 12/17/2015 11:57am BP Systolic 120 mmHg BP Diastolic 76 mmHg Heart Rate 74 /min Respiratory Rate 20 /min Height 68 inches 5'8" Weight 170.00 lb Pain Level 5 Pain at this time. Pain Level With Medicine 7 on average with meds Pain Level Without Medicine 10 04/13 without meds BMI (Body Mass Index) 25.8 kg/m2 11/20/2015 11:09am BP Systolic 128 mmHg BP Diastolic 84 mmHg Heart Rate 80 /min Respiratory Rate 20 /min Height 68 inches 5'8" Weight 168.00 lb Pain Level 6 Pain at this time. Pain Level With Medicine 6 on average with meds Pain Level Without Medicine 10 04/13 without meds BMI (Body Mass Index) 25.5 kg/m2 10/21/2015 12:00pm BP Systolic 136 mmHg BP Diastolic 84 mmHg Heart Rate 88 /min Respiratory Rate 20 /min Height 68 inches 5'8" Weight 168.00 lb Pain Level 7 Pain at this time. Pain Level With Medicine 6 on average with meds Pain Level Without Medicine 10 04/13 without meds BMI (Body Mass Index) 25.5 kg/m2 09/20/2015 2:01pm BP Systolic 126 mmHg BP Diastolic 76 mmHg Heart Rate 74 /min Respiratory Rate 20 /min Height 68 inches 5'8" Weight 172.00 lb Pain Level 8 Pain at this time. Pain Level With Medicine 7 on average with meds Pain Level Without Medicine 10 04/13 without meds BMI (Body Mass Index) 26.1 kg/m2 08/23/2015 10:32am BP Systolic 126 mmHg BP Diastolic 78 mmHg Heart Rate 76 /min Respiratory Rate 18 /min Height 68 inches 5'8" Weight 174.00 lb Pain Level 8 /, Pain at this time. Pain Level With Medicine 7 01/11, on average with meds Pain Level Without Medicine 10 04/13 without meds BMI (Body Mass Index) 26.5 kg/m2 07/25/2015 10:27am BP Systolic 126 mmHg BP Diastolic 80 mmHg Heart Rate 84 /min Respiratory Rate 20 /min Height 68 inches 5'8" Weight 174.00 lb Pain Level 8 Pain at this time. Pain Level With Medicine 7 on average with meds Pain Level Without Medicine 10 04/13 without meds BMI (Body Mass Index) 26.5 kg/m2 07/12/2015 2:46pm BP Systolic 128 mmHg BP Diastolic 82 mmHg Heart Rate 84 /min Respiratory Rate 20 /min Height 68 inches 5'8" Weight 176.00 lb Pain Level 9 Pain at this time. Pain Level With Medicine 8 on average with meds Pain Level Without Medicine 10 04/13 without meds BMI (Body Mass Index) 26.8 kg/m2 06/24/2015 3:05pm BP Systolic 128 mmHg BP Diastolic 80 mmHg Heart Rate 82 /min Respiratory Rate 20 /min Height 68 inches 5'8" Weight 175.00 lb Pain Level 8 Pain at this time. Pain Level With Medicine 7 on average with meds Pain Level Without Medicine 10 04/13 without meds BMI (Body Mass Index) 26.6 kg/m2 05/24/2015 1:35pm BP Systolic 136 mmHg BP Diastolic 82 mmHg Heart Rate 80 /min Respiratory Rate 20 /min Height 68 inches 5'8" Weight 182.00 lb Pain Level 6 Pain at this time. Pain Level With Medicine 5 on average with meds Pain Level Without Medicine 10 10 without meds Pain Level After Procedure 5 BP Systolic Recheck 140 mmHg Pulse: 84 BP Diastolic Recheck 86 mmHg Pulse: 84 BMI (Body Mass Index) 27.7 kg/m2 04/26/2015 2:12pm BP Systolic 128 mmHg BP Diastolic 80 mmHg Heart Rate 84 /min Respiratory Rate 20 /min Height 68 inches 5'8" Pain Level 6 Pain at this time. Pain Level With Medicine 5 on average with meds Pain Level Without Medicine 10 10 without meds 03/29/2015 1:55pm BP Systolic 130 mmHg BP Diastolic 74 mmHg Heart Rate 76 /min Respiratory Rate 18 /min Height 68 inches 5'8" Weight 184.00 lb Pain Level 6 6/10, Pain at this time. Pain Level With Medicine 6 6/10, on average with meds Pain Level Without Medicine 10 04/13 without meds BMI (Body Mass Index) 28.0 kg/m2 03/01/2015 9:44am BP Systolic 126 mmHg BP Diastolic 78 mmHg Heart Rate 74 /min Respiratory Rate 18 /min Height 68 inches 5'8" Weight 184.00 lb Pain Level 6 6/10, Pain at this time. Pain Level With Medicine 5 5/10, on average with meds Pain Level Without Medicine 10 04/13 without meds Pain Level After Procedure 5 BP Systolic Recheck 122 mmHg Pulse:72 BP Diastolic Recheck 74 mmHg Pulse:72 BMI (Body Mass Index) 28.0 kg/m2 02/08/2015 10:36am BP Systolic 126 mmHg BP Diastolic 74 mmHg Heart Rate 70 /min Respiratory Rate 18 /min Height 68 inches 5'8" Weight 185.00 lb Pain Level 9 Pain at this time. Pain Level With Medicine 9 on average with meds Pain Level Without Medicine 10 04/13 without meds BMI (Body Mass Index) 28.1 kg/m2 01/30/2015 3:58pm BP Systolic 134 mmHg BP Diastolic 80 mmHg Heart Rate 84 /min Respiratory Rate 18 /min Height 68 inches 5'8" Weight 183.00 lb Pain Level 9 Pain at this time. Pain Level With Medicine 8 on average with meds Pain Level Without Medicine 10 10/10 without meds BMI (Body Mass Index) 27.8 kg/m2 01/10/2015 3:40pm BP Systolic 138 mmHg BP Diastolic 84 mmHg Heart Rate 86 /min Respiratory Rate 20 /min Height 68 inches 5'8" Weight 188.00 lb Pain Level 9 Pain at this time. Pain Level With Medicine 8 on average with meds Pain Level Without Medicine 10 10/10 without meds BMI (Body Mass Index) 28.6 kg/m2 12/11/2014 4:12pm BP Systolic 126 mmHg BP Diastolic 74 mmHg Heart Rate 76 /min Respiratory Rate 18 /min Height 68 inches 5'8" Weight 188.00 lb Pain Level 6 6/10, Pain at this time. Pain Level With Medicine 6 6/10, on average with meds Pain Level Without Medicine 10 1010 without meds BMI (Body Mass Index) 28.6 kg/m2 11/08/2014 4:43pm BP Systolic 128 mmHg BP Diastolic 76 mmHg Heart Rate 80 /min Respiratory Rate 18 /min Height 68 inches 5'8" Weight 191.00 lb Pain Level 8 8/10, Pain at this time. Pain Level With Medicine 6 6/10, on average with meds Pain Level Without Medicine 10 10/10 without meds BMI (Body Mass Index) 29.0 kg/m2 10/22/2014 3:47pm BP Systolic 126 mmHg BP Diastolic 74 mmHg Heart Rate 76 /min Respiratory Rate 18 /min Height 68 inches 5'8" Weight 192.00 lb Pain Level 8 8/10, Pain at this time. Pain Level With Medicine 7 7/10, on average with meds Pain Level Without Medicine 10 10/10 without meds Pain Level After Procedure 6 BP Systolic Recheck 132 mmHg Pulse: 78 BP Diastolic Recheck 72 mmHg Pulse: 78 BMI (Body Mass Index) 29.2 kg/m2 10/11/2014 4:00pm BP Systolic 142 mmHg BP Diastolic 78 mmHg Heart Rate 74 /min Respiratory Rate 18 /min Height 68 inches 5'8" Weight 191.00 lb Pain Level 8 8/10, Pain at this time. Pain Level With Medicine 7 7/10, on average with meds Pain Level Without Medicine 10 10/10 without meds BMI (Body Mass Index) 29.0 kg/m2 09/12/2014 4:04pm BP Systolic 120 mmHg BP Diastolic 76 mmHg Heart Rate 74 /min Respiratory Rate 18 /min Height 68 inches 5'8" Weight 188.00 lb Pain Level 8 Pain at this time. Pain Level With Medicine 7 on average with meds Pain Level Without Medicine 10 10 without meds BMI (Body Mass Index) 28.6 kg/m2 08/30/2014 4:08pm BP Systolic 132 mmHg BP Diastolic 84 mmHg Heart Rate 88 /min Respiratory Rate 20 /min Height 68 inches 5'8" Weight 192.00 lb Pain Level 8 Pain at this time. Pain Level With Medicine 6 on average with meds Pain Level Without Medicine 10 04/13 without meds Pain Level After Procedure 5 BP Systolic Recheck 138 mmHg Pulse: 92 BP Diastolic Recheck 88 mmHg Pulse: 92 BMI (Body Mass Index) 29.2 kg/m2 08/16/2014 10:56am BP Systolic 136 mmHg BP Diastolic 84 mmHg Heart Rate 80 /min Respiratory Rate 20 /min Height 68 inches 5'8" Weight 192.00 lb Pain Level 7-8 Pain at this time. Pain Level With Medicine 7 on average with meds Pain Level Without Medicine 10 04/13 without meds BMI (Body Mass Index) 29.2 kg/m2 07/26/2014 2:59pm BP Systolic 124 mmHg BP Diastolic 76 mmHg Heart Rate 74 /min Respiratory Rate 18 /min Height 68 inches 5'8" Weight 199.00 lb Pain Level 7 Pain at this time. Pain Level With Medicine 5 on average with meds Pain Level Without Medicine 10 04/13 without meds Pain Level After Procedure 5 BP Systolic Recheck 130 mmHg Pulse: 84 BP Diastolic Recheck 80 mmHg Pulse: 84 BMI (Body Mass Index) 30.3 kg/m2 07/13/2014 9:48am BP Systolic 124 mmHg BP Diastolic 72 mmHg Heart Rate 74 /min Respiratory Rate 18 /min Height 68 inches 5'8" Weight 194.00 lb Pain Level 8 8/10, Pain at this time. Pain Level With Medicine 7 7/10, on average with meds Pain Level Without Medicine 10 04/13 without meds Pain Level After Procedure 6 BP Systolic Recheck 128 mmHg Pulse: 80 BP Diastolic Recheck 76 mmHg Pulse: 80 BMI (Body Mass Index) 29.5 kg/m2 06/18/2014 3:31pm BP Systolic 128 mmHg BP Diastolic 76 mmHg Heart Rate 78 /min Respiratory Rate 18 /min Height 68 inches 5'8" Weight 194.00 lb Pain Level 8 8/10, Pain at this time. Pain Level With Medicine 6 6/10, on average with meds Pain Level Without Medicine 10 10 without meds BMI (Body Mass Index) 29.5 kg/m2 06/14/2014 2:38pm BP Systolic 144 mmHg BP Diastolic 82 mmHg Heart Rate 92 /min Respiratory Rate 18 /min Height 68 inches 5'8" Weight 194.00 lb Pain Level 6 6/10, Pain at this time. Pain Level With Medicine 6 6-8/10, on average with meds Pain Level Without Medicine 10 04/13 without meds BMI (Body Mass Index) 29.5 kg/m2 05/14/2014 3:02pm BP Systolic 122 mmHg BP Diastolic 74 mmHg Heart Rate 76 /min Respiratory Rate 18 /min Height 68 inches 5'8" Weight 194.00 lb Pain Level 8 Pain at this time. Pain Level With Medicine 6 on average with meds Pain Level Without Medicine 10 04/13 without meds Pain Level After Procedure 5 BP Systolic Recheck 126 mmHg Pulse: 74 BP Diastolic Recheck 74 mmHg Pulse: 74 BMI (Body Mass Index) 29.5 kg/m2 04/13/2014 11:48am BP Systolic 118 mmHg BP Diastolic 78 mmHg Heart Rate 72 /min Respiratory Rate 18 /min Height 68 inches 5'8" Weight 194.00 lb Pain Level 8 8/10, Pain at this time. Pain Level With Medicine 8 8/10, on average with meds Pain Level Without Medicine 10 04/13 without meds BMI (Body Mass Index) 29.5 kg/m2 03/12/2014 10:09am BP Systolic 126 mmHg BP Diastolic 72 mmHg Heart Rate 74 /min Respiratory Rate 18 /min Height 68 inches 5'8" Weight 196.00 lb Pain Level 8 8/10, Pain at this time. Pain Level With Medicine 7 7/10, on average with meds Pain Level Without Medicine 10 04/13 without meds BMI (Body Mass Index) 29.8 kg/m2 02/09/2014 9:21am BP Systolic 128 mmHg BP Diastolic 76 mmHg Heart Rate 76 /min Respiratory Rate 18 /min Height 68 inches 5'8" Weight 192.00 lb Pain Level 7 Pain at this time. Pain Level With Medicine 6 on average with meds Pain Level Without Medicine 10 04/13 without meds BMI (Body Mass Index) 29.2 kg/m2 01/09/2014 3:53pm BP Systolic 128 mmHg BP Diastolic 78 mmHg Heart Rate 74 /min Respiratory Rate 18 /min Height 68 inches 5'8" Weight 190.00 lb Pain Level 7-8 Pain at this time. Pain Level With Medicine 7 on average with meds Pain Level Without Medicine 10 10 without meds Pain Level After Procedure 6 BP Systolic Recheck 128 mmHg Pulse: 80 BP Diastolic Recheck 76 mmHg Pulse: 80 BMI (Body Mass Index) 28.9 kg/m2 12/13/2013 11:42am BP Systolic 132 mmHg BP Diastolic 78 mmHg Heart Rate 76 /min Respiratory Rate 18 /min Height 68 inches 5'8" Weight 191.00 lb Pain Level 7-8 Pain at this time. Pain Level With Medicine 6 on average with meds Pain Level Without Medicine 10 04/13 without meds BMI (Body Mass Index) 29.0 kg/m2 11/29/2013 11:29am BP Systolic 130 mmHg BP Diastolic 72 mmHg Heart Rate 76 /min Respiratory Rate 18 /min Height 68 inches 5'8" Weight 193.00 lb Pain Level 8 8/10, Pain at this time. Pain Level With Medicine 8 810, on average with meds Pain Level Without Medicine 10 04/13 without meds Pain Level After Procedure 7 BP Systolic Recheck 132 mmHg Pulse: 80 BP Diastolic Recheck 78 mmHg Pulse: 80 BMI (Body Mass Index) 29.3 kg/m2 11/15/2013 10:47am BP Systolic 126 mmHg BP Diastolic 80 mmHg Heart Rate 84 /min Respiratory Rate 20 /min Height 68 inches 5'8" Weight 192.00 lb Pain Level 8 Pain at this time. Pain Level With Medicine 7 on average with meds Pain Level Without Medicine 10 04/13 without meds BMI (Body Mass Index) 29.2 kg/m2 10/16/2013 10:23am BP Systolic 128 mmHg BP Diastolic 80 mmHg Heart Rate 76 /min Respiratory Rate 18 /min Height 68 inches 5'8" Weight 190.00 lb Pain Level 7-8 Pain at this time. Pain Level With Medicine 6-7 on average with meds Pain Level Without Medicine 10 04/13 without meds Pain Level After Procedure 5 BP Systolic Recheck 128 mmHg Pulse: 84 BP Diastolic Recheck 84 mmHg Pulse: 84 BMI (Body Mass Index) 28.9 kg/m2 10/02/2013 11:13am BP Systolic 124 mmHg BP Diastolic 78 mmHg Heart Rate 72 /min Respiratory Rate 18 /min Height 68 inches 5'8" Weight 190.00 lb Pain Level 8 8/10, Pain at this time. Pain Level With Medicine 8 8/10, on average with meds Pain Level Without Medicine 10 10 without meds BMI (Body Mass Index) 28.9 kg/m2 09/18/2013 9:54am BP Systolic 132 mmHg BP Diastolic 76 mmHg Heart Rate 72 /min Respiratory Rate 18 /min Height 68 inches 5'8" Weight 190.00 lb Pain Level 7 7/10, Pain at this time. Pain Level Without Medicine 10 04/13 without meds BMI (Body Mass Index) 28.9 kg/m2 Results Description No Information Available Procedures Date Code Description Status 05/24/2018 87500 Omt 1-2 Body Regions Completed 04/18/2018 91114 Omt 3-4 Body Regions Completed 04/18/2018 28391 Injection For Nerve Block, Suprascapular Nerve Completed 04/18/201841130 Injection, Single Or Mutiple Trigger Points One Or Two Completed Muscles 04/18/201873527 Injection, Tendon Origin/Insertion Completed 04/18/201830291 Inject Tendon/Ligament Completed 03/24/2018 58714 Omt 3-4 Body Regions Completed 02/22/2018 10230 Therapeutic, Prophylactic Or Diagnostic Injection Subq/Im Completed 02/22/2018 98046 Omt 3-4 Body Regions Completed 01/21/2018 51752 Omt 3-4 Body Regions Completed 12/23/201733162 Injection, Single Or Mutiple Trigger Points One Or Two Completed Muscles 12/23/201794540 Injection, Tendon Origin/Insertion Completed 12/23/2017 06140 Injection, Tendon Origin/Insertion Completed 12/23/2017 08305 Inject Tendon/Ligament Completed 12/23/2017 06769 Inject Tendon/Ligament Completed 2017 26764 Omt 3-4 Body Regions Completed 10/15/2017 15288 Omt 3-4 Body Regions Completed 09/16/2017 09498 Omt 3-4 Body Regions Completed 08/13/2017 67910 Omt 5-6 Body Regions Completed 07/15/2017 68610 Omt 3-4 Body Regions Completed 07/15/2017 17295 Injection For Nerve Block, Other Peripheral Nerve Or Completed Branch 07/15/2017 Injection, Single Or Mutiple Trigger Points One Or Two Completed Muscles 06/15/2017 64365 Omt 3-4 Body Regions Completed 05/14/2017 91773 Omt 3-4 Body Regions Completed 04/13/201733101 Inject Tendon/Ligament Completed 04/13/201793275 Inject Tendon/Ligament Completed 04/13/201775094 Inject Tendon/Ligament Completed 04/13/201750839 Inject Tendon/Ligament Completed 04/13/201729986 Injection, Tendon Origin/Insertion Completed 04/13/2017 Injection, Tendon Origin/Insertion Completed 04/13/201735419 Injection, Single Or Mutiple Trigger Points One Or Two Completed Muscles 04/13/2017 96021 Injection For Nerve Block, Suprascapular Nerve Completed 04/13/2017 21947 Test Autonomic Nervous System, Sudomotor Completed 04/13/2017 86685 Omt 3-4 Body Regions Completed 03/11/2017 94989 Test Autonomic Nervous System, Sudomotor Completed 03/11/2017 86131 Therapeutic, Prophylactic Or Diagnostic Injection Subq/Im Completed 03/11/2017 51901 Omt 5-6 Body Regions Completed 02/11/2017 35867 Omt 3-4 Body Regions Completed 01/13/2017 09143 Omt 3-4 Body Regions Completed 12/11/2016 48352 Omt 3-4 Body Regions Completed 11/12/201632241 Inject Tendon/Ligament Completed 11/12/201643507 Inject Tendon/Ligament Completed 11/12/201647413 Inject Tendon/Ligament Completed 11/12/201670893 Inject Tendon/Ligament Completed 11/12/201688178 Inject Tendon/Ligament Completed 11/12/201639681 Inject Tendon/Ligament Completed 11/12/201651201 Inject Tendon/Ligament Completed 11/12/201633962 Inject Tendon/Ligament Completed 11/12/201656308 Inject Tendon/Ligament Completed 11/12/2016 54020 Omt 3-4 Body Regions Completed 10/16/2016 80951 Omt 3-4 Body Regions Completed 09/14/2016 39374 Omt 3-4 Body Regions Completed 07/13/2016 79977 Omt 3-4 Body Regions Completed 06/11/2016 47314 Omt 1-2 Body Regions Completed 06/11/2016 76415 Injection For Nerve Block, Suprascapular Nerve Completed 06/11/201675570 Injection, Single Or Mutiple Trigger Points One Or Two Completed Muscles 06/11/201647778 Injection, Tendon Origin/Insertion Completed 06/11/201660483 Inject Tendon/Ligament Completed 05/15/201669949 Inject Tendon/Ligament Completed 05/15/201611719 Injection, Tendon Origin/Insertion Completed 05/15/201618453 Injection, Single Or Mutiple Trigger Points One Or Two Completed Muscles 05/15/2016 58311 Injection For Nerve Block, Suprascapular Nerve Completed 05/12/2016 28135 Omt 3-4 Body Regions Completed 05/12/2016 08960 Test Autonomic Nervous System, Sudomotor Completed 04/10/2016 49589 Omt 3-4 Body Regions Completed 03/13/2016 72077 Omt 3-4 Body Regions Completed 02/28/2016 77562 Omt 3-4 Body Regions Completed 02/12/2016 42782 Omt 3-4 Body Regions Completed 01/31/2016 27750 Omt 3-4 Body Regions Completed 01/16/2016 98614 Omt 3-4 Body Regions Completed 12/31/2015 85437 Inject Tendon/Ligament Completed 12/31/201504513 Inject Tendon/Ligament Completed 12/31/2015 44771 Inject Tendon/Ligament Completed 12/31/2015 60302 Inject Tendon/Ligament Completed 12/31/201535623 Inject Tendon/Ligament Completed 12/31/2015 99804 Inject Tendon/Ligament Completed 12/31/201582360 Injection, Tendon Origin/Insertion Completed 12/31/201590548 Injection, Tendon Origin/Insertion Completed 12/31/2015 78148 Omt 3-4 Body Regions Completed 12/17/2015 42582 Omt 3-4 Body Regions Completed 11/20/2015 61245 Omt 3-4 Body Regions Completed 10/21/2015 51961 Omt 3-4 Body Regions Completed 10/21/2015 32782 Therapeutic, Prophylactic Or Diagnostic Injection Subq/Im Completed 09/20/2015 08619 Omt 3-4 Body Regions Completed 09/20/2015 90140 Therapeutic, Prophylactic Or Diagnostic Injection Subq/Im Completed 08/23/2015 93658 Omt 3-4 Body Regions Completed 07/25/2015 70249 Omt 3-4 Body Regions Completed 05/24/2015 88954 U/S Guidance For Needle Placement Completed 05/24/201503711 Inject Tendon/Ligament Completed 04/26/2015 28740 Omt 3-4 Body Regions Completed 04/26/2015 14271 Therapeutic, Prophylactic Or Diagnostic Injection Subq/Im Completed 03/29/2015 89775 Omt 3-4 Body Regions Completed 03/01/201521013 Injection, Tendon Origin/Insertion Completed 03/01/201551344 Injection, Single Or Mutiple Trigger Points One Or Two Completed Muscles 03/01/2015 72053 Injection For Nerve Block, Suprascapular Nerve Completed 03/01/2015 53736 Omt 1-2 Body Regions Completed 01/30/2015 93378 Omt 3-4 Body Regions Completed 01/30/2015 95551 Test Autonomic Nervous System, Sudomotor Completed 01/10/2015 51878 Omt 3-4 Body Regions Completed 12/11/2014 55476 Omt 3-4 Body Regions Completed 11/08/2014 08089 Omt 3-4 Body Regions Completed 10/22/201417104 Inject Tendon/Ligament Completed 10/22/201478106 Injection, Tendon Origin/Insertion Completed 10/22/201458081 Injection, Single Or Mutiple Trigger Points One Or Two Completed Muscles 10/22/2014 11044 Injection For Nerve Block, Suprascapular Nerve Completed 10/22/2014 96129 Omt 3-4 Body Regions Completed 10/11/2014 23298 Omt 3-4 Body Regions Completed 09/12/2014 68328 Omt 1-2 Body Regions Completed 08/30/2014 46812 Omt 3-4 Body Regions Completed 08/30/2014 73962 Injection For Nerve Block, Suprascapular Nerve Completed 08/30/201449059 Injection, Single Or Mutiple Trigger Points One Or Two Completed Muscles 08/30/201418514 Injection, Tendon Origin/Insertion Completed 08/16/2014 24317 Omt 3-4 Body Regions Completed 07/26/2014 12489 Omt 3-4 Body Regions Completed 07/26/201456489 Inject Tendon/Ligament Completed 07/26/201470589 Inject Tendon/Ligament Completed 07/26/201482373 Inject Tendon/Ligament Completed 07/13/2014 29628 Omt 3-4 Body Regions Completed 07/13/2014 52828 Injection For Nerve Block, Suprascapular Nerve Completed 07/13/201490641 Injection Single Or Multiple Trigger Points Three Or More Completed Muscles 06/14/2014 77634 Omt 3-4 Body Regions Completed 05/14/201493218 Inject/Drain Arthrocentesis Major Joint/Bursa/Ganglion Completed Cyst 05/14/2014 63153 Omt 3-4 Body Regions Completed 04/13/2014 29403 Omt 3-4 Body Regions Completed 03/12/2014 36821 Omt 3-4 Body Regions Completed 03/12/2014 11875 Injection For Nerve Block, Suprascapular Nerve Completed 03/12/201471314 Injection, Single Or Mutiple Trigger Points One Or Two Completed Muscles 03/12/201487742 Injection, Tendon Origin/Insertion Completed 01/09/201499208 Inject Tendon/Ligament Completed 01/09/201459183 Inject Tendon/Ligament Completed 01/09/201432866 Injection, Tendon Origin/Insertion Completed 01/09/201409221 Injection, Tendon Origin/Insertion Completed 01/09/201461686 Injection Single Or Multiple Trigger Points Three Or More Completed Muscles 01/09/2014 09772 Omt 3-4 Body Regions Completed 12/13/2013 65854 Omt 5-6 Body Regions Completed 11/29/2013 87036 U/S Guidance For Needle Placement Completed 11/29/201327171 Inject/Drain Arthrocentesis Major Joint/Bursa/Ganglion Completed Cyst 10/16/2013 51630 U/S Guidance For Needle Placement Completed 10/16/201391775 Inject/Drain Arthrocentesis Major Joint/Bursa/Ganglion Completed Cyst Encounters Type Date Location Provider Dx Diagnosis Office Visit 06/24/2018 Main Office as Of Art Danielle DO G89.29 Other chronic pain 11:45a 08/05/13 MPH M54.2 Cervicalgia M54.6 Pain in thoracic spine M79.12 Myalgia of auxiliary muscles, head and neck Z79.891 USP (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 analgesic Office Visit 05/24/2018 2:15p Main Office as Art Danielle G89.29 Other chronic Of 08/05/13 , MPH pain M54.2 Cervicalgia M99.01 Segmental and somatic dysfunction of cervical region M54.6 Pain in thoracic spine M99.02 Segmental and somatic dysfunction of thoracic region M79.12 Myalgia of auxiliary muscles, head and neck 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 Office Visit 04/18/2018 10:30a Main Office as Art Danielle, G89.29 Other chronic Of 08/05/13 DO, MPH pain M54.2 Cervicalgia M99.01 Segmental and somatic dysfunction of cervical region M54.6 Pain in thoracic spine M99.02 Segmental and somatic dysfunction of thoracic region M25.512 Pain in left shoulder M99.07 Segmental and somatic dysfunction of upper extremity M65.88 Other synovitis and tenosynovitis, other site M79.12 Myalgia of auxiliary muscles, head and neck Z79.891 USP (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 analgesic Office Visit 03/24/2018 3:15p Main Office as Art Danielle, G89.29 Other chronic Of 08/05/13 DO, MPH pain M79.7 Fibromyalgia M54.5 Low back pain M99.03 Segmental and somatic dysfunction of lumbar region M54.6 Pain in thoracic spine M99.02 Segmental and somatic dysfunction of thoracic region M54.2 Cervicalgia M99.01 Segmental and somatic dysfunction of cervical region M53.3 Sacrococcygeal disorders, not elsewhere classified M99.04 Segmental and somatic dysfunction of sacral region R53.83 Other fatigue Z79.891 USP (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 analgesic 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 Office Visit 02/22/2018 2:30p Main Office as Art Danielle, G89.29 Other chronic Of 08/05/13 DO, MPH pain M79.7 Fibromyalgia M54.2 Cervicalgia M99.01 Segmental and somatic dysfunction of cervical region M54.6 Pain in thoracic spine M99.02 Segmental and somatic dysfunction of thoracic region M54.5 Low back pain M99.03 Segmental and somatic dysfunction of lumbar region 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 R53.83 Other fatigue 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 Office Visit 01/21/2018 2:15p Main Office as Art Danielle, G89.29 Other chronic Of 08/05/13 DO, MPH pain M54.2 Cervicalgia M99.01 Segmental and somatic dysfunction of cervical region M54.6 Pain in thoracic spine M99.02 Segmental and somatic dysfunction of thoracic region M54.5 Low back pain M99.03 Segmental and somatic dysfunction of lumbar region M79.7 Fibromyalgia 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 Office Visit 12/23/2017 3:00p Main Office as Art Danielle, G89.29 Other chronic Of 08/05/13 DO, MPH pain M54.6 Pain in thoracic spine M54.5 Low back pain M54.2 Cervicalgia M65.88 Other synovitis and tenosynovitis, other site M79.1 Myalgia 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 Office Visit 2017 2:15p Main Office as Art Danielle G89.29 Other chronic Of 08/05/13 DO, MPH pain M79.7 Fibromyalgia M54.6 Pain in thoracic spine M99.02 Segmental and somatic dysfunction of thoracic region M54.5 Low back pain M99.03 Segmental and somatic dysfunction of lumbar region M54.2 Cervicalgia M99.01 Segmental and somatic dysfunction of cervical region R10.2 Pelvic and perineal pain M99.05 Segmental and somatic dysfunction of pelvic region 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 Office Visit 10/15/2017 2:30p Main Office as Art Danielle, G89.29 Other chronic Of 08/05/13 DO, MPH pain M79.7 Fibromyalgia M54.2 Cervicalgia M99.01 Segmental and somatic dysfunction of cervical region M54.6 Pain in thoracic spine M99.02 Segmental and somatic dysfunction of thoracic region M54.5 Low back pain M99.03 Segmental and somatic dysfunction of lumbar region 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 Office Visit 09/16/2017 2:00p Main Office as Art Danielle G89.29 Other chronic Of 08/05/13 DO, MPH pain M79.7 Fibromyalgia M54.2 Cervicalgia M99.01 Segmental and somatic dysfunction of cervical region M54.5 Low back pain M99.03 Segmental and somatic dysfunction of lumbar region M54.6 Pain in thoracic spine M99.02 Segmental and somatic dysfunction of thoracic region 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 Office Visit 08/13/2017 11:15a Main Office as Art Danielle, G89.29 Other chronic Of 08/05/13 DO, MPH pain M79.7 Fibromyalgia 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 M54.2 Cervicalgia M99.01 Segmental and somatic dysfunction of cervical region M54.6 Pain in thoracic spine M99.02 Segmental and somatic dysfunction of thoracic region M54.5 Low back pain M99.03 Segmental and somatic dysfunction of lumbar region M53.3 Sacrococcygeal disorders, not elsewhere classified M99.04 Segmental and somatic dysfunction of sacral region 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 M25.551 Pain in right hip M99.05 Segmental and somatic dysfunction of pelvic region Office Visit 07/15/2017 11:45a Main Office as Art Danielle G89.29 Other chronic Of 08/05/13 DO, MPH pain M54.2 Cervicalgia M99.01 Segmental and somatic dysfunction of cervical region M54.6 Pain in thoracic spine M99.02 Segmental and somatic dysfunction of thoracic region M54.5 Low back pain M99.03 Segmental and somatic dysfunction of lumbar region M53.3 Sacrococcygeal disorders, not elsewhere classified M25.511 Pain in right shoulder M79.1 Myalgia 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 M54.16 Radiculopathy, lumbar region M99.04 Segmental and somatic dysfunction of sacral region M99.07 Segmental and somatic dysfunction of upper extremity Office Visit 06/15/2017 11:45a Main Office as Art Danielle G89.29 Other chronic Of 08/05/13 DO, MPH pain M54.6 Pain in thoracic spine M99.02 Segmental and somatic dysfunction of thoracic region M54.5 Low back pain M99.03 Segmental and somatic dysfunction of lumbar region M54.2 Cervicalgia M99.01 Segmental and somatic dysfunction of cervical region M99.04 Segmental and somatic dysfunction of sacral region 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 Office Visit 05/14/2017 3:00p Main Office as Art Danielle, G89.29 Other chronic Of 08/05/13 DO, MPH pain M54.2 Cervicalgia M99.01 Segmental and somatic dysfunction of cervical region M54.6 Pain in thoracic spine M99.02 Segmental and somatic dysfunction of thoracic region M54.5 Low back pain M99.03 Segmental and somatic dysfunction of lumbar region M25.511 Pain in right shoulder M99.07 Segmental and somatic dysfunction of upper extremity M79.1 Myalgia M53.3 Sacrococcygeal disorders, not elsewhere classified 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 M99.04 Segmental and somatic dysfunction of sacral region Office Visit 04/13/2017 2:30p Main Office as Art Danielle, G89.29 Other chronic Of 08/05/13 DO, MPH pain M99.01 Segmental and somatic dysfunction of cervical region G90.3 Multi-system degeneration of the autonomic nervous system M54.2 Cervicalgia M54.6 Pain in thoracic spine M99.02 Segmental and somatic dysfunction of thoracic region M54.5 Low back pain M99.03 Segmental and somatic dysfunction of lumbar region M65.88 Other synovitis and tenosynovitis, other site M25.511 Pain in right shoulder M79.1 Myalgia 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 M25.512 Pain in left shoulder M99.07 Segmental and somatic dysfunction of upper extremity M53.3 Sacrococcygeal disorders, not elsewhere classified M99.04 Segmental and somatic dysfunction of sacral region Office Visit 03/11/2017 2:15p Main Office as Art Danielle, G89.29 Other chronic Of 08/05/13 DO, MPH pain M79.7 Fibromyalgia M25.511 Pain in right shoulder M25.512 Pain in left shoulder M99.07 Segmental and somatic dysfunction of upper extremity M54.2 Cervicalgia M99.01 Segmental and somatic dysfunction of cervical region M99.02 Segmental and somatic dysfunction of thoracic region M54.5 Low back pain Z79.891 USP (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 analgesic R53.83 Other fatigue G90.3 Multi-system degeneration of the autonomic nervous system M54.6 Pain in thoracic spine M99.03 Segmental and somatic dysfunction of lumbar region M53.3 Sacrococcygeal disorders, not elsewhere classified M99.04 Segmental and somatic dysfunction of sacral region Office Visit 02/11/2017 3:00p Main Office as Art Danielle G89.29 Other chronic Of 08/05/13 DO, MPH pain M79.7 Fibromyalgia M25.511 Pain in right shoulder M25.512 Pain in left shoulder M54.2 Cervicalgia M99.01 Segmental and somatic dysfunction of cervical region M54.6 Pain in thoracic spine M99.02 Segmental and somatic dysfunction of thoracic region M54.5 Low back pain M99.03 Segmental and somatic dysfunction of lumbar region 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 Office Visit 01/13/2017 2:30p Main Office as Jenna Box 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 M79.7 Fibromyalgia M25.511 Pain in right shoulder M25.512 Pain in left shoulder M54.2 Cervicalgia M99.01 Segmental and somatic dysfunction of cervical region M54.6 Pain in thoracic spine M99.02 Segmental and somatic dysfunction of thoracic region Z71.89 Other specified counseling M54.5 Low back pain M99.03 Segmental and somatic dysfunction of lumbar region Z79.891 USP (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 analgesic Office Visit 12/11/2016 1:00p Main Office as Art Danielle G89.29 Other chronic Of 08/05/13 DO, MPH pain M79.7 Fibromyalgia M54.2 Cervicalgia M99.01 Segmental and somatic dysfunction of cervical region M25.512 Pain in left shoulder M25.511 Pain in right shoulder M99.07 Segmental and somatic dysfunction of upper extremity M54.6 Pain in thoracic spine M99.02 Segmental and somatic dysfunction of thoracic region Z79.891 USP (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 analgesic Office Visit 11/12/2016 2:45p Main Office as Art Danielle G89.29 Other chronic Of 08/05/13 DO, MPH pain M79.7 Fibromyalgia M25.512 Pain in left shoulder M25.511 Pain in right shoulder M99.07 Segmental and somatic dysfunction of upper extremity M54.2 Cervicalgia M99.01 Segmental and somatic dysfunction of cervical region M54.6 Pain in thoracic spine M99.02 Segmental and somatic dysfunction of thoracic region M65.88 Other synovitis and tenosynovitis, other site 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512 Pain in left shoulder M25.511 Pain in right shoulder M99.07 Segmental and somatic dysfunction of upper extremity M54.2 Cervicalgia M99.01 Segmental and somatic dysfunction of cervical region M54.6 Pain in thoracic spine M99.02 Segmental and somatic dysfunction of thoracic region 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 Office Visit 08/14/2016 2:15p Main Office as Jenna Box 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 M79.7 Fibromyalgia M25.512 Pain in left shoulder M25.511 Pain in right shoulder M54.6 Pain in thoracic spine M54.2 Cervicalgia 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 Office Visit 07/13/2016 11:15a Main Office as Art Danielle G89.29 Other chronic Of 08/05/13 DO, MPH pain M79.7 Fibromyalgia M54.2 Cervicalgia M99.01 Segmental and somatic dysfunction of cervical region M54.6 Pain in thoracic spine M99.02 Segmental and somatic dysfunction of thoracic region M25.512 Pain in left shoulder M25.511 Pain in right shoulder M99.07 Segmental and somatic dysfunction of upper extremity Office Visit 06/11/2016 11:15a Main Office as rAt Danielle G89.29 Other chronic Of 08/05/13 DO, MPH pain M79.7 Fibromyalgia M54.2 Cervicalgia M54.12 Radiculopathy, cervical region M25.512 Pain in left shoulder M65.88 Other synovitis and tenosynovitis, other site M79.1 Myalgia M46.07 Spinal enthesopathy, lumbosacral region M99.01 Segmental and somatic dysfunction of cervical region M54.6 Pain in thoracic spine M99.02 Segmental and somatic dysfunction of thoracic region M99.07 Segmental and somatic dysfunction of upper extremity G90.3 Multi-system degeneration of the autonomic nervous system Office Visit 05/15/2016 1:45p Main Office as Art Danielle, G89.29 Other chronic Of 08/05/13 DO, MPH pain M54.2 Cervicalgia M25.512 Pain in left shoulder M65.88 Other synovitis and tenosynovitis, other site M79.1 Myalgia M46.07 Spinal enthesopathy, lumbosacral region M54.12 Radiculopathy, cervical region Office Visit 05/12/2016 11:15a Main Office as Art Danielle, G89.29 Other chronic Of 08/05/13 DO, MPH pain M79.7 Fibromyalgia M54.2 Cervicalgia M99.01 Segmental and somatic dysfunction of cervical region M54.6 Pain in thoracic spine M99.02 Segmental and somatic dysfunction of thoracic region M54.5 Low back pain M99.03 Segmental and somatic dysfunction of lumbar region Z79.891 USP (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 analgesic K59.09 Other constipation 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 G90.3 Multi-system degeneration of the autonomic nervous system Office Visit 04/10/2016 1:30p Main Office as Art Danielle, G89.29 Other chronic Of 08/05/13 DO, MPH pain M79.7 Fibromyalgia M54.2 Cervicalgia M99.01 Segmental and somatic dysfunction of cervical region M54.6 Pain in thoracic spine M99.02 Segmental and somatic dysfunction of thoracic region M54.5 Low back pain M99.03 Segmental and somatic dysfunction of lumbar region 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 Office Visit 03/13/2016 1:15p Main Office as Art Danielle, G89.29 Other chronic Of 08/05/13 DO, MPH pain M79.7 Fibromyalgia M54.5 Low back pain M99.03 Segmental and somatic dysfunction of lumbar region M54.6 Pain in thoracic spine M99.02 Segmental and somatic dysfunction of thoracic region M54.2 Cervicalgia M99.01 Segmental and somatic dysfunction of cervical region Office Visit 02/28/2016 1:15p Main Office as Art Danielle, G89.29 Other chronic Of 08/05/13 DO, MPH pain M79.7 Fibromyalgia M54.5 Low back pain M99.03 Segmental and somatic dysfunction of lumbar region M54.6 Pain in thoracic spine M99.02 Segmental and somatic dysfunction of thoracic region M54.2 Cervicalgia M99.01 Segmental and somatic dysfunction of cervical region Z79.891 USP (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 analgesic Office Visit 02/12/2016 10:15a Main Office as Art Danielle G89.29 Other chronic Of 08/05/13 DO, MPH pain M79.7 Fibromyalgia M54.5 Low back pain M99.03 Segmental and somatic dysfunction of lumbar region M54.6 Pain in thoracic spine M99.02 Segmental and somatic dysfunction of thoracic region M54.2 Cervicalgia M99.01 Segmental and somatic dysfunction of cervical region Z79.891 USP (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 analgesic Office Visit 01/31/2016 1:15p Main Office as Of Art Danielle, DO, M79.7 Fibromyalgia 08/05/13 MPH M54.2 Cervicalgia M99.01 Segmental and somatic dysfunction of cervical region M54.6 Pain in thoracic spine M99.02 Segmental and somatic dysfunction of thoracic region M54.5 Low back pain M99.03 Segmental and somatic dysfunction of lumbar region K59.09 Other constipation Office Visit 01/16/2016 11:30a Main Office as Art Danielle G89.29 Other chronic Of 08/05/13 DO, MPH pain M79.7 Fibromyalgia M54.2 Cervicalgia M99.01 Segmental and somatic dysfunction of cervical region M54.6 Pain in thoracic spine M99.02 Segmental and somatic dysfunction of thoracic region M54.5 Low back pain M99.03 Segmental and somatic dysfunction of lumbar region 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 Office Visit 12/31/2015 11:30a Main Office as Art Danielle, G89.29 Other chronic Of 08/05/13 DO, MPH pain M79.7 Fibromyalgia M54.2 Cervicalgia M99.01 Segmental and somatic dysfunction of cervical region M54.6 Pain in thoracic spine M99.02 Segmental and somatic dysfunction of thoracic region M54.5 Low back pain M99.03 Segmental and somatic dysfunction of lumbar region M65.88 Other synovitis and tenosynovitis, other site Office Visit 12/17/2015 11:45a Main Office as Art Danielle, G89.29 Other chronic Of 08/05/13 DO, MPH pain M79.7 Fibromyalgia M54.2 Cervicalgia M99.01 Segmental and somatic dysfunction of cervical region M54.6 Pain in thoracic spine M99.02 Segmental and somatic dysfunction of thoracic region M54.5 Low back pain M99.03 Segmental and somatic dysfunction of lumbar region 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 Office Visit 11/20/2015 11:00a Main Office as Art Danielle G89.29 Other chronic Of 08/05/13 DO, MPH pain M79.7 Fibromyalgia M54.2 Cervicalgia M99.01 Segmental and somatic dysfunction of cervical region M54.6 Pain in thoracic spine M99.02 Segmental and somatic dysfunction of thoracic region M54.5 Low back pain M99.03 Segmental and somatic dysfunction of lumbar region Z79.891 USP (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 analgesic Office Visit 10/21/2015 11:30a Main Office as Art Danielle 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, 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 (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 analgesic G89.29 Other chronic pain M79.7 Fibromyalgia M54.6 Pain in thoracic spine M99.02 Segmental and somatic dysfunction of thoracic region M54.2 Cervicalgia M99.01 Segmental and somatic dysfunction of cervical region M54.5 Low back pain M99.03 Segmental and somatic dysfunction of lumbar region 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 R53.83 Other fatigue 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 Office Visit 09/20/2015 1:15p Main Office as Art Danielle Z79.891 USP Of 08/05/13 DO, MPH (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 analgesic G89.29 Other chronic pain M79.7 Fibromyalgia M54.6 Pain in thoracic spine M99.02 Segmental and somatic dysfunction of thoracic region M54.2 Cervicalgia M99.01 Segmental and somatic dysfunction of cervical region M54.5 Low back pain M99.03 Segmental and somatic dysfunction of lumbar region 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 Z79.891 USP (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 analgesic R53.83 Other fatigue Office Visit 08/23/2015 10:00a Main Office as Art Danielle, G89.29 Other chronic Of 08/05/13 DO, MPH pain M79.7 Fibromyalgia M54.6 Pain in thoracic spine M99.02 Segmental and somatic dysfunction of thoracic region M54.2 Cervicalgia M99.01 Segmental and somatic dysfunction of cervical region M54.5 Low back pain M99.03 Segmental and somatic dysfunction of lumbar region 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 Office Visit 07/25/2015 10:00a Main Office as Art Danielle, G89.29 Other chronic Of 08/05/13 DO, MPH pain M79.7 Fibromyalgia M54.6 Pain in thoracic spine M99.02 Segmental and somatic dysfunction of thoracic region M54.2 Cervicalgia M99.01 Segmental and somatic dysfunction of cervical region M54.5 Low back pain M99.03 Segmental and somatic dysfunction of lumbar region Office Visit 07/12/2015 2:30p Main Office as Art Danielle, G89.29 Other chronic Of 08/05/13 DO, MPH pain 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 M79.7 Fibromyalgia M54.6 Pain in thoracic spine M54.5 Low back pain Office Visit 06/24/2015 3:00p Main Office as Art Danielle, G89.29 Other chronic Of 08/05/13 DO, MPH pain M53.82 Other specified dorsopathies, cervical region M54.6 Pain in thoracic spine M79.7 Fibromyalgia L94.8 Other specified localized connective tissue disorders Office Visit 05/24/2015 1:30p Main Office as Art Danielle, 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, 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 (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 analgesic G89.29 Other chronic pain M53.82 Other specified dorsopathies, cervical region M54.6 Pain in thoracic spine M65.862 Other synovitis and tenosynovitis, left lower leg M75.81 Other shoulder lesions, right shoulder M65.861 Other synovitis and tenosynovitis, right lower leg M79.1 Myalgia Z79.891 USP (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 analgesic Office Visit 04/26/2015 1:45p Main Office as Art Danielle, G89.29 Other chronic Of 08/05/13 DO, MPH pain M53.82 Other specified dorsopathies, cervical region M99.01 Segmental and somatic dysfunction of cervical region M54.6 Pain in thoracic spine M99.02 Segmental and somatic dysfunction of thoracic region M75.81 Other shoulder lesions, right shoulder M99.07 Segmental and somatic dysfunction of upper extremity M79.1 Myalgia R53.83 Other fatigue Office Visit 03/29/2015 1:30p Main Office as Jenna Box, 338.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 723.9 Cervical Region Musculoskeletal Disorders & Symptoms Unspec 723.4 Brachial,Cervical Or Suprascapular Neuritis 726.19 Shoulder Disorders Other 724.1 Pain Thoracic Spine 739.1 Lesion Nonallopathic Cervical Region Not Elsewhere Class 739.2 Lesion Nonallopathic Thoracic Region Not Elsewhere Class 739.7 Lesion Nonallopathic Upper Extremity Not Elsewhere Class Office Visit 03/01/2015 9:30a Main Office as Art Danielle, 338.29 Other Chronic Of 08/05/13 DO, MPH Pain 726.19 Shoulder Disorders Other 723.4 Brachial,Cervical Or Suprascapular Neuritis 723.9 Cervical Region Musculoskeletal Disorders & Symptoms Unspec 739.1 Lesion Nonallopathic Cervical Region Not Elsewhere Class 729.1 Myalgia & Myositis Unspec 727.00 Synovitis & Tenosynovitis Unspec 724.1 Pain Thoracic Spine 739.2 Lesion Nonallopathic Thoracic Region Not Elsewhere Class 739.7 Lesion Nonallopathic Upper Extremity Not Elsewhere Class Office Visit 02/08/2015 10:15a Main Office as Art Danielle, 338.29 Other Chronic Of 08/05/13 DO, MPH Pain 723.9 Cervical Region Musculoskeletal Disorders & Symptoms Unspec 724.1 Pain Thoracic Spine 726.19 Shoulder Disorders Other 724.2 Lumbago 729.1 Myalgia & Myositis Unspec Office Visit 01/30/2015 4:00p Main Office as Art Danielle, 338.29 Other Chronic Of 08/05/13 DO, MPH Pain 723.9 Cervical Region Musculoskeletal Disorders & Symptoms Unspec 739.1 Lesion Nonallopathic Cervical Region Not Elsewhere Class 724.1 Pain Thoracic Spine 739.2 Lesion Nonallopathic Thoracic Region Not Elsewhere Class 726.19 Shoulder Disorders Other 739.7 Lesion Nonallopathic Upper Extremity Not Elsewhere Class 724.2 Lumbago 739.3 Lesion Nonallopathic Lumbar Region Not Elsewhere Class 337.9 Autonomic Nervous System Disorder Unspec 729.1 Myalgia & Myositis Unspec Office Visit 01/10/2015 3:30p Main Office as Art Danielle, 338.29 Other Chronic Of 08/05/13 DO, MPH Pain 723.9 Cervical Region Musculoskeletal Disorders & Symptoms Unspec 739.1 Lesion Nonallopathic Cervical Region Not Elsewhere Class 724.1 Pain Thoracic Spine 739.2 Lesion Nonallopathic Thoracic Region Not Elsewhere Class 724.2 Lumbago 739.3 Lesion Nonallopathic Lumbar Region Not Elsewhere Class 726.19 Shoulder Disorders Other 739.7 Lesion Nonallopathic Upper Extremity Not Elsewhere Class V58.69 Medications Mcc (Current) Use Encounter Office Visit 12/11/2014 4:00p Main Office as Art Danielle, 338.29 Other Chronic Of 08/05/13 DO, MPH Pain 723.9 Cervical Region Musculoskeletal Disorders & Symptoms Unspec 739.1 Lesion Nonallopathic Cervical Region Not Elsewhere Class 724.1 Pain Thoracic Spine 739.2 Lesion Nonallopathic Thoracic Region Not Elsewhere Class 724.2 Lumbago 739.3 Lesion Nonallopathic Lumbar Region Not Elsewhere Class 726.19 Shoulder Disorders Other 739.7 Lesion Nonallopathic Upper Extremity Not Elsewhere Class Office Visit 11/08/2014 4:00p Main Office as eJnna Box, 338.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 729.1 Myalgia & Myositis Unspec 728.85 Spasm Muscle 723.9 Cervical Region Musculoskeletal Disorders & Symptoms Unspec 739.1 Lesion Nonallopathic Cervical Region Not Elsewhere Class 724.1 Pain Thoracic Spine 739.2 Lesion Nonallopathic Thoracic Region Not Elsewhere Class 724.2 Lumbago 739.3 Lesion Nonallopathic Lumbar Region Not Elsewhere Class 726.19 Shoulder Disorders Other 739.7 Lesion Nonallopathic Upper Extremity Not Elsewhere Class Office Visit 10/22/2014 3:45p Main Office as Atr Danielle, 338.29 Other Chronic Of 08/05/13 DO, MPH Pain 723.9 Cervical Region Musculoskeletal Disorders & Symptoms Unspec 739.1 Lesion Nonallopathic Cervical Region Not Elsewhere Class 724.1 Pain Thoracic Spine 739.2 Lesion Nonallopathic Thoracic Region Not Elsewhere Class 724.2 Lumbago 739.3 Lesion Nonallopathic Lumbar Region Not Elsewhere Class 727.00 Synovitis & Tenosynovitis Unspec 729.1 Myalgia & Myositis Unspec 723.4 Brachial,Cervical Or Suprascapular Neuritis 739.7 Lesion Nonallopathic Upper Extremity Not Elsewhere Class Office Visit 10/11/2014 3:45p Main Office as Art Danielle, 338.29 Other Chronic Of 08/05/13 DO, MPH Pain 723.9 Cervical Region Musculoskeletal Disorders & Symptoms Unspec 739.1 Lesion Nonallopathic Cervical Region Not Elsewhere Class 724.1 Pain Thoracic Spine 739.2 Lesion Nonallopathic Thoracic Region Not Elsewhere Class 724.2 Lumbago 739.3 Lesion Nonallopathic Lumbar Region Not Elsewhere Class 726.19 Shoulder Disorders Other 739.7 Lesion Nonallopathic Upper Extremity Not Elsewhere Class Office Visit 09/12/2014 4:00p Main Office as Art Danielle, 338.29 Other Chronic Of 08/05/13 DO, MPH Pain 723.9 Cervical Region Musculoskeletal Disorders & Symptoms Unspec 729.1 Myalgia & Myositis Unspec 727.00 Synovitis & Tenosynovitis Unspec 724.1 Pain Thoracic Spine 724.2 Lumbago 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 739.1 Lesion Nonallopathic Cervical Region Not Elsewhere Class 739.2 Lesion Nonallopathic Thoracic Region Not Elsewhere Class Office Visit 08/30/2014 4:00p Main Office as Art Danielle, 338.29 Other Chronic Of 08/05/13 DO, MPH Pain 723.9 Cervical Region Musculoskeletal Disorders & Symptoms Unspec 739.1 Lesion Nonallopathic Cervical Region Not Elsewhere Class 729.1 Myalgia & Myositis Unspec 727.00 Synovitis & Tenosynovitis Unspec 723.4 Brachial,Cervical Or Suprascapular Neuritis 724.1 Pain Thoracic Spine 739.2 Lesion Nonallopathic Thoracic Region Not Elsewhere Class 724.2 Lumbago 739.3 Lesion Nonallopathic Lumbar Region Not Elsewhere Class 726.19 Shoulder Disorders Other 739.7 Lesion Nonallopathic Upper Extremity Not Elsewhere Class Office Visit 08/16/2014 10:30a Main Office as Art Danielle, 338.29 Other Chronic Of 08/05/13 DO, MPH Pain 723.9 Cervical Region Musculoskeletal Disorders & Symptoms Unspec 739.1 Lesion Nonallopathic Cervical Region Not Elsewhere Class 724.1 Pain Thoracic Spine 739.2 Lesion Nonallopathic Thoracic Region Not Elsewhere Class 724.2 Lumbago 739.3 Lesion Nonallopathic Lumbar Region Not Elsewhere Class 726.19 Shoulder Disorders Other 739.7 Lesion Nonallopathic Upper Extremity Not Elsewhere Class 729.1 Myalgia & Myositis Unspec Office Visit 07/26/2014 2:45p Main Office as Art Danielle, 338.29 Other Chronic Of 08/05/13 DO, MPH Pain 723.9 Cervical Region Musculoskeletal Disorders & Symptoms Unspec 739.1 Lesion Nonallopathic Cervical Region Not Elsewhere Class 724.1 Pain Thoracic Spine 739.2 Lesion Nonallopathic Thoracic Region Not Elsewhere Class 724.2 Lumbago 739.3 Lesion Nonallopathic Lumbar Region Not Elsewhere Class 727.09 Synovitis & Tenosynovitis Other Office Visit 07/13/2014 9:30a Main Office as Art Danielle, 338.29 Other Chronic Of 08/05/13 DO, MPH Pain 723.9 Cervical Region Musculoskeletal Disorders & Symptoms Unspec 739.1 Lesion Nonallopathic Cervical Region Not Elsewhere Class 724.1 Pain Thoracic Spine 739.2 Lesion Nonallopathic Thoracic Region Not Elsewhere Class 726.19 Shoulder Disorders Other 739.7 Lesion Nonallopathic Upper Extremity Not Elsewhere Class 729.1 Myalgia & Myositis Unspec 727.00 Synovitis & Tenosynovitis Unspec 723.4 Brachial,Cervical Or Suprascapular Neuritis 724.2 Lumbago 739.3 Lesion Nonallopathic Lumbar Region Not Elsewhere Class Office Visit 06/14/2014 2:15p Main Office as Art Danielle, 338.29 Other Chronic Of 08/05/13 DO, MPH Pain 723.9 Cervical Region Musculoskeletal Disorders & Symptoms Unspec 739.1 Lesion Nonallopathic Cervical Region Not Elsewhere Class 724.1 Pain Thoracic Spine 739.2 Lesion Nonallopathic Thoracic Region Not Elsewhere Class 726.19 Shoulder Disorders Other 739.7 Lesion Nonallopathic Upper Extremity Not Elsewhere Class 729.1 Myalgia & Myositis Unspec Office Visit 05/14/2014 2:30p Main Office as Art Danielle, 338.29 Other Chronic Of 08/05/13 DO, MPH Pain 723.9 Cervical Region Musculoskeletal Disorders & Symptoms Unspec 724.1 Pain Thoracic Spine 726.19 Shoulder Disorders Other 724.2 Lumbago 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 727.09 Synovitis & Tenosynovitis Other 739.1 Lesion Nonallopathic Cervical Region Not Elsewhere Class 739.2 Lesion Nonallopathic Thoracic Region Not Elsewhere Class 739.3 Lesion Nonallopathic Lumbar Region Not Elsewhere Class 739.7 Lesion Nonallopathic Upper Extremity Not Elsewhere Class Office Visit 04/13/2014 11:30a Main Office as Art Danielle, 338.29 Other Chronic Of 08/05/13 DO, MPH Pain 723.9 Cervical Region Musculoskeletal Disorders & Symptoms Unspec 739.1 Lesion Nonallopathic Cervical Region Not Elsewhere Class 724.1 Pain Thoracic Spine 739.2 Lesion Nonallopathic Thoracic Region Not Elsewhere Class 726.19 Shoulder Disorders Other 739.7 Lesion Nonallopathic Upper Extremity Not Elsewhere Class 724.2 Lumbago 739.3 Lesion Nonallopathic Lumbar Region Not Elsewhere Class Office Visit 03/12/2014 9:45a Main Office as Art Danielle, 338.29 Other Chronic Of 08/05/13 DO, MPH Pain 723.9 Cervical Region Musculoskeletal Disorders & Symptoms Unspec 739.1 Lesion Nonallopathic Cervical Region Not Elsewhere Class 724.1 Pain Thoracic Spine 739.2 Lesion Nonallopathic Thoracic Region Not Elsewhere Class 726.19 Shoulder Disorders Other 739.7 Lesion Nonallopathic Upper Extremity Not Elsewhere Class 727.09 Synovitis & Tenosynovitis Other 729.1 Myalgia & Myositis Unspec 723.4 Brachial,Cervical Or Suprascapular Neuritis Office Visit 02/09/2014 9:15a Main Office as Art Danielle, 338.29 Other Chronic Of 08/05/13 DO, MPH Pain 729.1 Myalgia & Myositis Unspec 719.49 Pain Joint Multiple Sites V65.42 Counseling On Substance Use & Abuse Office Visit 01/09/2014 3:30p Main Office as Art Danielle, 338.29 Other Chronic Of 08/05/13 DO, MPH Pain 726.19 Shoulder Disorders Other 727.00 Synovitis & Tenosynovitis Unspec 723.4 Brachial,Cervical Or Suprascapular Neuritis 723.1 Cervicalgia 739.1 Lesion Nonallopathic Cervical Region Not Elsewhere Class 724.1 Pain Thoracic Spine 739.2 Lesion Nonallopathic Thoracic Region Not Elsewhere Class 724.2 Lumbago 739.3 Lesion Nonallopathic Lumbar Region Not Elsewhere Class 739.7 Lesion Nonallopathic Upper Extremity Not Elsewhere Class 729.1 Myalgia & Myositis Unspec Office Visit 12/13/2013 11:15a Main Office as Art Danielle, 338.29 Other Chronic Of 08/05/13 DO, MPH Pain 729.1 Myalgia & Myositis Unspec 723.1 Cervicalgia 739.1 Lesion Nonallopathic Cervical Region Not Elsewhere Class 724.1 Pain Thoracic Spine 739.2 Lesion Nonallopathic Thoracic Region Not Elsewhere Class 724.2 Lumbago 739.3 Lesion Nonallopathic Lumbar Region Not Elsewhere Class 724.6 Sacral Disorder 739.4 Lesion Nonallopathic Sacral Region Not Elsewhere Class 719.45 Pain Joint Pelvic Region & Thigh 739.5 Lesion Nonallopathic Pelvic Region Not Elsewhere Class V58.69 Medications Mcc (Current) Use Encounter Office Visit 11/29/2013 11:00a Main Office as Art Danielle, 338.29 Other Chronic Of 08/05/13 DO, MPH Pain 719.45 Pain Joint Pelvic Region & Thigh 729.5 Pain In Limb 723.9 Cervical Region Musculoskeletal Disorders & Symptoms Unspec V65.42 Counseling On Substance Use & Abuse Office Visit 11/15/2013 10:30a Main Office as Art Danielle, 338.29 Other Chronic Of 08/05/13 DO, MPH Pain 719.45 Pain Joint Pelvic Region & Thigh 729.5 Pain In Limb 723.9 Cervical Region Musculoskeletal Disorders & Symptoms Unspec 729.1 Myalgia & Myositis Unspec Office Visit 10/16/2013 10:15a Main Office as Art Danielle, 338.29 Other Chronic Of 08/05/13 BRITT BEE Pain 719.45 Pain Joint Pelvic Region & Thigh 726.5 Enthesopathy Hip Office Visit 10/02/2013 10:45a Main Office as Art Danielle, 338.29 Other Chronic Of 08/05/13 BRITT BEE Pain 729.1 Myalgia & Myositis Unspec Office Visit 09/18/2013 9:00a Main Office as Art Danielle, 338.29 Other Chronic Of 08/05/13 BRITT BEE Pain 729.1 Myalgia & Myositis Unspec 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 Symptoms and complaints discussed and reviewed today. No significant changes in physical findings. Continue current medical pain management.M54.2 CervicalgiaComments:Chronic. Symptoms and complaints discussed and reviewed today. No significant changes in physical findings. Continue current medical pain management. ~B_ ~b_M54.6 Pain in thoracic spineComments: Chronic.Symptoms and complaints discussed and reviewed today. No significant changes in physical findings. Continue current medical pain management.M79.7 FibromyalgiaComments:Chronic. Symptoms and complaints discussed and reviewed today. No significant changes in physical findings. Continue current medical pain management.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Comments:Chronic. Symptoms and complaints discussed and reviewed today. No significant changes in physical findings. Continue current medical pain management.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New Labs:Urine Drug Screen, Ordered: 07/22/18Comments: Urine drug screen sample taken today to monitor opiate use and to monitor use of illicit substances.Will discuss results at next appointment.The following tests were ordered:6 AM, AMPH, LADAN, PHILLIP, BUP, CARIS, COCM, COT, ETG, FENT, MCSHSG, OPI, OXY, PCP, TAPEN, XTSY, ZOLP. ~I_A urine drug test (UDT) was ordered for this patient and collected on site today. Creatinine has been ordered as well for specimen validity, not for kidney function. Preliminary UDT results are not final and should not be used to determine patient care or plan of treatment. Initially a qualitative immunoassay screen will be done. Any inconsistent or positive findings will be further tested with a more comprehensive quantitative confirmation LCMS study. It is part of the treatment process of prescribing controlled substances and is considered standard of care. ~i_Z71.89 Other specified counselingComments:Pre and post surgical pain management discussed at length.She clearly understands we will follow thesituation with her surgeon.AllComments:All above symptoms and complaints discussed as well as diagnoses reviewed.Continue trial of opioid pain management - note changes below; injection therapy, osteopathic manipulation ( OMT), PT / modalities, and consults as needed to manage chronic pain.Side effects discussed; anticipatory guidance given. Patient clearly understands and agrees with all medical treatments and suggestions. All medicines prescribed are adequate and appropriate for this patient's complaint of pain, medical history, physical, and personal goals.Goals of Treatment are to provide adequate and appropriate multidisciplinary medical pain management to increase/ maintain patient's quality of life and functionality while maintaining satisfactory side effect profile and minimizing [facility] end-organ damage. Activity as toleratedContinue with PCP
[2018-08-11] MEDS ORDERED: Lactated Ringers 1000 ML Bag* 1,000 ML IV SCH ×2 (06:00→12:00)
[2018-08-11] MEDS ORDERED: Dexamethasone IV* 4 MG/ML 1 ML (4 MG) IV SLOW PU ONE (06:00)
[2018-08-11] MEDS ORDERED: Famotidine IV* 10 MG/ML 2 ML (20 mg) IV ONE (06:00)
[2018-08-11] MEDS ORDERED: Dexamethasone IV* 4 MG/ML 1 ML (4 MG) ONE (06:11)
[2018-08-11] MEDS ORDERED: Famotidine IV* 10 MG/ML 2 ML (20 mg) ONE (06:11)
[2018-08-11] MEDS ORDERED: ceFAZolin 2 GM PREMIX in ORs 2 GM/50 ML BAG IVPB ONE (06:11)
[2018-08-11] MEDS ORDERED: Bacitracin IV* 50,000 UNITS INJ ONE (06:52)
[2018-08-11] MEDS ORDERED: Lidocaine 1% MPF wEPI 200,000* 30 ML SDV ONE (06:52)
[2018-08-11] MEDS ORDERED: Thrombin 5,000 UNITS* 1 APPLIC KIT - topical use - TOPICAL ONE (06:52)
[2018-08-11] MEDS ORDERED: fentaNYL* 50 MCG/ML 5 ML VIAL (250 MCG VIAL) ONE (07:06)
[2018-08-11] MEDS ORDERED: Lidocaine 2% PF * 5 ML VIAL ONE (07:06)
[2018-08-11] MEDS ORDERED: Propofol* 10 MG/ML 20 ML BTL ONE (07:06)
[2018-08-11] MEDS ORDERED: Midazolam* 1 MG/ML 5 ML VIAL (5 MG) ONE (07:06)
[2018-08-11] MEDS ORDERED: Rocuronium* 10 MG/ML VIAL ONE (07:06)
[2018-08-11] MEDS ORDERED: Naloxone* 0.4 MG/ML 1 ML VIAL IV PRN (07:22)
[2018-08-11] MEDS ORDERED: HYDROcodone/ACETAMIN 5-325 MG* 1 TAB PO PRN (07:22)
[2018-08-11] MEDS ORDERED: DiMENhydriNATE IV* 50 MG/ML VIAL IV PUSH PRN (07:22)
[2018-08-11] MEDS ORDERED: Succinylcholine* 20 MG/ML 10 ML VIAL ONE (07:41)
[2018-08-11] MEDS ORDERED: Remifentanil* 2 MG VIAL ONE (08:10)
[2018-08-11] MEDS ORDERED: EPHEDrine (Pressors)* 50 MG/ML VIAL ONE (08:36)
[2018-08-11] MEDS ORDERED: Ondansetron INJ* 2 MG/ML VIAL ONE (10:18)
[2018-08-11] MEDS ORDERED: KETAMINE HCL* 50 MG/ML 10 ML VIAL ONE (10:30)
[2018-08-11] MEDS ORDERED: fentaNYL* 50 MCG/ML 2 ML VIAL (100 MCG VIAL) ONE ×3 (10:52→11:57)
[2018-08-11] MEDS: fentaNYL* 50 MCG/ML 2 ML VIAL (100 MCG VIAL) IV PRN ×4 (11:23→12:41)
[2018-08-11] MEDS ORDERED: Ondansetron INJ* 2 MG/ML VIAL IV PRN (11:31)
[2018-08-11] MEDS ORDERED: Magnesium Hydroxide LIQ* 30 ML UDC PO PRN (11:31)
[2018-08-11] MEDS ORDERED: EMOLL EX PRN (11:33)
[2018-08-11] MEDS ORDERED: Baclofen TAB* 10 MG PO PRN (11:33)
[2018-08-11] MEDS ORDERED: CLOBETASOL PROPIONATE EX PRN (11:33)
[2018-08-11] MEDS ORDERED: oxyCODONE/Acetamin 5/325 MG* TAB ONE (11:57)
[2018-08-11] MEDS: oxyCODONE/Acetamin 5/325 MG* TAB PO PRN ×2 (11:58→12:00)
[2018-08-11] MEDS ORDERED: oxyCODONE TAB* 5 MG TAB PO PRN (12:43)
[2018-08-11] MEDS ORDERED: fentaNYL PATCH 25 MCG/HR TRANSDERM SCH (13:00)
--- NOTE | 2018-08-11 13:12 | OP ---
DATE OF OPERATION: 08/11/18 - ROOM #347 DATE OF : 77 SURGEON: Mike White MD. SUPERVISOR CIGAR MAKING HAND: JOSAFAT Valverde. The case was done with assistance of surgical PA because of the complexity of the case. ANESTHESIA: General. PRE-OP DIAGNOSES: 1. Degenerative disk disease. 2. Herniated nucleus pulposus. POST-OP DIAGNOSES: 1. Degenerative disk disease. 2. Herniated nucleus pulposus. OPERATIVE PROCEDURE: The patient underwent anterior cervical diskectomy and fusion at C5-6 and C6-7 with PEEK interbody cages, autologous locally harvested bone graft, DBX, and plate with intraoperative monitoring. ESTIMATED BLOOD LOSS: 10 cc. COMPLICATIONS: None. SUMMARY: The patient is a very pleasant 42-year-old female with complaints of neck pain radiating to the left upper extremity. The patient had MRI findings consistent with degenerative disk disease with lateral disk herniation at C5-6 and C6-7. After failing conservative modalities, she was offered the option of surgical intervention in the form of anterior cervical diskectomy and fusion. After explaining the expectation, limitations and possible complications of the procedure to the patient and her family including her mother and her significant other as well as her daughter with complications including, but not limited to bleeding, infection, risk of injury to adjacent structures, coma, paralysis, , need for additional procedures, anesthesia risks, stroke, blindness, cancer, instability, hardware failure, adjacent level disease, spinal fluid leak, pseudoarthrosis, recurrent laryngeal nerve injury, Irving syndrome, need for tracheostomy or gastrostomy, the patient was agreeable to proceed with surgery and informed consent was obtained. The patient understood that her condition may not improve and in fact may get worse after surgery and that she may need to have additional procedures in the future. She also understood that operative plan may be modified according to intraoperative findings and conditions and that the case can be abandoned or be done in more than 1 stages. The patient understood that she may need to have prolonged hospitalization, prolonged ICU stay. DESCRIPTION OF PROCEDURE: The patient was brought to the operating room and was placed under general anesthesia by anesthesia team. She was carefully positioned supine on the operative table and all bony prominences were meticulously padded. A shoulder blade roll was placed under the shoulders and the skin was prepped and draped in the standard fashion. After appropriate surgical pause and patient identification, a right transverse incision was marked on the skin and infiltrated with local anesthetic over the levels of C5- 6 and C6-7 as determined from intraoperative fluoroscopic imaging. The skin was incised with a #10 surgical blade and the incision was carried down to the subcutaneous tissue. The subcutaneous tissue was gently undermined and self- retaining retractors were introduced further into the field. The platysma muscle was then gently elevated and divided with tenotomy scissors. The platysma muscle was undermined and self- retaining retractors were introduced further into the field. The plane between the medial border of the sternocleidomastoid and the medial structures was then developed with sharp and blunt dissection and the prevertebral fascia was identified. The self- retaining retractors were introduced further into the field and intraoperative fluoroscopic imaging confirmed appropriate surgical level. [place] pins were placed in the vertebral body of C5, C6, and C7, and under microscopic magnification, a diskectomy was performed at these 2 levels after incising the annulus fibrosus with a #15 surgical blade and diskectomy on the disk space preparation was carried out with pituitary rongeurs, Kerrison punches, curettes , and high-speed drill. Locally harvested bone graft was saved for the arthrodesis part of the procedure. The posterior longitudinal ligament was then identified and gently divided with #1 Kerrison and extensive foraminotomies were performed bilaterally, left and right. Left foramina was found to be quite stenotic. After the end of the diskectomy, the thecal sac was pulsating nicely and the foramens were patent bilaterally. After copious irrigation and confirmation of meticulous hemostasis, the disk space was appropriately sized and an 8-mm height PEEK interbody cage was introduced first at the C6-7 after ports at the C5-6 level after being filled with locally harvested bone graft and DBX putty. The [place] pins were removed and appropriately-sized ZEVO plate was placed and secured with temporary pins. Intraoperative fluoroscopic image confirmed excellent placement of all hardware. The plate was secured with 13-mm titanium and the screws were tightened and locking mechanism was engaged. After removing the self-retaining retractors and after copious irrigation and confirmation of meticulous hemostasis and meticulous inspection, the wound was closed by layers over a Sky drain which was tunneled through a separate stab wound incision. The external platysma was approximated with 2-0 interrupted Vicryl sutures while the subcutaneous tissue was approximated with 2-0 interrupted Vicryl sutures. The skin was then covered with Dermabond. At the end of the procedure, all counts were reported to be correct. The patient remained hemodynamically stable and intraoperative electrophysiological monitoring remained stable throughout the case. The patient was then extubated and was transferred to Recovery in excellent condition. The case was done with the assistance of surgical PA because of the complexity of the case. [id number]/[facility] #: [id number] CELENA
--- NOTE | 2018-08-11 13:40 | CONSULT ---
Consult Consult: INPATIENT PAIN CONSULTATION Leanne Butler is a 42 year old female. She has a medical history significant for psoriatic arthritis, diagnosed 3-4 years ago, as well as fibromyalgia. She sees Dr. Severino, the family services specialist for this and takes sulfasalazine and enbrel. She has chronic pain and has been a patient of Dr. Art Danielle. She is on chronic opioid therapy for her pain. She normally takes oxycodone 20 mg tablets up to 6 times a day as well as a Fentanyl patch, 75 mcg/hr, changing every 3 days. She also takes gabapentin 800 TID and Cymbalta 90 mg a day. She developed neck pain down into her left shoulder which became severe. She saw the [facility] in [place] and was eventually referred to Dr. White. She had an MRI of her cervical spine showing left disc herniations at C5/6 and C6/7. She was admitted this morning and underwent an anterior cervical decompression and fusion with PEEK interbody spacers. I am asked to see her for pain management. PAST MEDICAL HISTORY: ADHD, Fibromyalgia, Depression Allergies Allergy/AdvReac Type Severity Reaction Status Date / Time No Known Allergies Allergy Verified 08/11/18 06:17 Current Medications Hydrocodone Bitart/Acetaminophen (Nutley 5-325 Tab*) 1 tab PO ONCE PRN PRN Reason: PAIN - MODERATE Amphetamine/Dextroamphetamine (Adderall Tab*) 10 mg PO BID ZHOU Baclofen (Lioresal Tab*) 10 mg PO BID PRN PRN Reason: SPASMS - BACK Dexamethasone Sodium Phosphate (Decadron Iv*) 8 mg IV SLOW PU ONCE ONE Stop: 08/11/18 06:01 Last Admin: 08/11/18 06:23 Dose: 8 mg Dimenhydrinate (Dramamine Iv*) 25 mg IV PUSH ONCE PRN PRN Reason: NAUSEA/VOMITING Duloxetine HCl (Cymbalta Cap*) 30 mg PO DAILY ZHOU Duloxetine HCl (Cymbalta Cap*) 60 mg PO DAILY ZHOU Famotidine (Pepcid Iv*) 20 mg IV ONCE ONE Stop: 08/11/18 06:01 Last Admin: 08/11/18 06:23 Dose: 20 mg Fentanyl (Duragesic Patch 25 Mcg/Hr*) 75 mcg TRANSDERM Q72H ZHOU Fentanyl Citrate (Fentanyl*) 50 mcg IV Q5M PRN PRN Reason: PAIN - MODERATE Last Admin: 08/11/18 12:41 Dose: 50 mcg Gabapentin (Neurontin Cap(*)) 800 mg PO TID [facility] Lactated Ringer's (Lactated Ringers 1000 Ml Bag*) 1,000 mls @ 125 mls/hr IV PER RATE ZHOU Last Admin: 08/11/18 06:23 Dose: 125 mls/hr Lactated Ringer's (Lactated Ringers 1000 Ml Bag*) 1,000 mls @ 75 mls/hr IV .per rate [facility] Lidocaine/Sodium Bicarbonate (Buffered Lidocaine 1% Syrin*) 0.2 ml INTRADERM ONCE ONE Stop: 08/10/18 12:19 Last Admin: 08/11/18 06:23 Dose: 0.2 ml Lubiprostone (Amitiza (Nf)) 8 mcg PO BID [facility] Magnesium Hydroxide (Milk Of Magnesia Liq*) 30 ml PO DAILY PRN PRN Reason: CONSTIPATION Naloxone HCl (Narcan*) 0.08 mg IV Q2M PRN PRN Reason: severe induced resp depression Non-Formulary Medication (Clobetasol Propionate/Emoll [Clobetasol Emollient 0.05 % Crm]) 0.05 % EX DAILY PRN PRN Reason: ITCHING Ondansetron HCl (Zofran Inj*) 4 mg IV Q6H PRN PRN Reason: NAUSEA/VOMITING Oxycodone HCl (Roxycodone Tab*) 20 mg PO Q6H PRN PRN Reason: PAIN Oxycodone/Acetaminophen (Percocet 5/325 Tab*) 1 tab PO ONCE PRN PRN Reason: PAIN - MODERATE Last Admin: 08/11/18 12:00 Dose: 1 tab SOCIAL HISTORY: Quit smoking, does not drink. Has SO Vital Signs Temp Pulse Resp BP Pulse Ox 98.2 F 100 18 125/85 96 08/11/18 13:33 08/11/18 13:33 08/11/18 13:45 08/11/18 13:33 08/11/18 13:33 EXAM: NECK: Immobilized in [place] LUNGS: Clear HEART: reg rhythm ABDOMEN: Soft EXTREMITIES: Normal tone bilat UEs and LEs NEUROLOGIC: Sensation intact ASSESSMENT: 1. S/P ACDF C5/6 and C6/7 2. Psoriatic Arthritis 3. Chronic Pain on chronic opioids PLAN: I think we need to increase her PRN pain medications. Will change to oxycodone 30 mg every 4 hours for severe pain. She is already on both cymbalta and gabapentin. She uses Baclofen normally for a muscle relaxer and she has amitiza for bowel medications. I will follow
[2018-08-11] MEDS: Gabapentin CAP(*) 400 MG PO SCH ×2 (14:22→20:20)
[2018-08-11] MEDS: oxyCODONE TAB* 5 MG TAB PO PRN ×3 (14:22→23:45)
[2018-08-11] MEDS: fentaNYL Patch Check Q Shift 1 NOTE FOLLOW UP SCH (19:12)
[2018-08-11] MEDS: Amphetamine MIXED SALT TAB* 10 MG TAB PO SCH ×2 (20:20→20:21)
[2018-08-11] MEDS: NF:Lubiprostone (NF) 8 MCG CAP PO SCH (20:21)
[2018-08-12] MEDS: oxyCODONE TAB* 5 MG TAB PO PRN ×3 (03:38→13:16)
[2018-08-12] MEDS: fentaNYL Patch Check Q Shift 1 NOTE FOLLOW UP SCH (07:13)
[2018-08-12] MEDS: Gabapentin CAP(*) 400 MG PO SCH ×2 (08:27→13:15)
[2018-08-12] MEDS: Amphetamine MIXED SALT TAB* 10 MG TAB PO SCH (08:28)
[2018-08-12] MEDS: NF:Lubiprostone (NF) 8 MCG CAP PO SCH (08:41)
[2018-08-12] MEDS ORDERED: DULoxetine DR CAP* 30 MG CAP.DR PO SCH (09:00)
[2018-08-12] MEDS ORDERED: DULoxetine DR CAP* 60 MG CAP.DR PO SCH (09:00)
--- NOTE | 2018-08-12 11:09 | PN ---
Progress Note - Progress Note Date of Service: 08/12/18 SOAP: Subjective: []No events ON. Patient tolerated the procedure well yesterday. Ambulates, Tolerates PO well, Voids. Mild incision pain. Preop LUE radiculopathy resolved. Wants to go home. Objective: []VSS, Afebrile Wound, s,c,d. On MJ collar. Drain output noted. Drain was removed. Catheter appeared to be intact. Patient tolerated procedure well. AAOx3, LYNN, CN II-XII grossly intact. Motor 5/5 all extremities Sensory grossly intact to light touch Assessment: []42 yof POD#1 ACDF C5-6,C6-7 Plan: []Monitor VS, Neurochecks Encourage ambulation. XR revealed good placement of hardware, good alignment of spine. DC today. Full instructions were given. Appreciate Dr Houser's help with pain management. Maricarmen White MD
[2018-08-12 13:33] VITALS: BP 120/68
== END 2018-08-12 14:10 | disposition home or self-care (01) ==
LOC: AA 05:42 → INTOOBSV 05:42 → SSU 13:20
PROVIDERS: ADMIT Neurological Surgery; ATTEND Neurological Surgery
DX: M50.122 Cervical disc disorder at C5-C6 level with radiculopathy (principal); M50.123 Cervical disc disorder at C6-C7 level with radiculopathy; L40.50 Arthropathic psoriasis, unspecified; M79.7 Fibromyalgia; M54.2 Cervicalgia; F17.210 Nicotine dependence, cigarettes, uncomplicated
CPT/HCPCS: 36415; 72040; 76000; 85730; 96374; 96375; 96376; A9270-GY; C1713; C1776; C9359; G0378; J0330; J0690; J1100; J2001; J2250; J2405; J2704; J3010

== ENCOUNTER 2019-03-13 11:17 | Emergency (ER) | payer MEDICARE, MEDICAID ==
--- OUTSIDE RECORDS SUMMARY | 2019-03-13 11:35 | XMS REPORT | Continuity of Care Document ---
:1975 External Reference #:[id number] Author Name Art Danielle DO MPH Address [address] [place] [address], [address] [place] [address] Care Team Providers Name Role Phone Alannah Chery M.D. - Internal Medicine Care Team Information Acid Regenerator [phone] Citlalli Franklin M.D. - Family Medicine Care Team Information Acid Regenerator Problems Description No Information Available Social History Type Date Description Comments Sex Unknown Cigarette Use Current Cigarette Smoker 1 Pack Daily ETOH Use Rarely consumes alcohol Tobacco Use Start: Unknown Patient is a current smoker, smokes every day Smoking Status Reviewed: 02/17/19 Patient is a current smoker, smokes every day Allergies, Adverse Reactions, Alerts Active Allergies Reaction Severity Comments Date Oxymorphone itching 06/18/2014 Inactive Allergies NKDA 09/18/2013 Medications Active Medications SIG Qnty Indications Ordering Date Provider Fentanyl si by mouth 10units Art Danielle, 02/11/2017 75mcg/HR Patches 72HR q72h as DO, MPH directed chronic pain patient, mylan brand only Amitiza si by mouth 60caps Art Danielle, 01/31/2016 24mcg Capsules twice a day DO, MPH Oxycodone HCL si-2 by 210tabs Art Danielle, 01/16/2016 20mg Tablets mouth every 4 DO, MPH to 6 hours as directed chronic pain patient Cymbalta 1 by mouth 30caps Unknown 30mg Caps DR Part every 8 hours as directed Flonase Allergy Relief Unknown 50mcg/Act Suspension Gabapentin si by mouth Unknown 300mg Capsules three times a day as directed Sulfasalazine 1 by mouth Unknown 500mg Tablets three times daily Amphetamine-Dextroampheta 1 by mouth Unknown mine every day as 5mg Tablets directed Enbrel weekly Unknown 50mg/ml Soln Prefill Syringe Hydroxychloroquine 1 by mouth Unknown Sulfate daily 200mg Tablets Diclofenac Sodium 1 by mouth Unknown 50mg Tablets three times a DR day History Medications Cyclobenzaprine HCL si/2 to 1 by 60tabs Art Danielle, 08/24/2018 - 10mg mouth twice a day BRITT BEE 12/21/2018 Tablets as directed Immunizations Description No Information Available Vital Signs Date Vital Result Comment 02/17/2019 1:51pm BP Systolic 128 mmHg BP Diastolic 84 mmHg Heart Rate 88 /min Respiratory Rate 20 /min Height 68 inches 5'8" Weight 147.00 lb Pain Level 6 Pain at this time. Pain Level With Medicine 5 on average with meds Pain Level Without Medicine 9 without meds BMI (Body Mass Index) 22.3 kg/m2 01/19/2019 2:48pm BP Systolic 128 mmHg BP Diastolic 84 mmHg Heart Rate 86 /min Respiratory Rate 20 /min Height 68 inches 5'8" Weight 148.00 lb Pain Level 7 Pain at this time. Pain Level With Medicine 6 on average with meds Pain Level Without Medicine 9 without meds BMI (Body Mass Index) 22.5 kg/m2 Results Description No Information Available Procedures Date Code Description Status 01/19/2019 24352 Omt 3-4 Body Regions Completed 12/21/2018 Arthrocentesis Aspirtation Inj,Intermediate W/ US Guide & Completed Report 12/21/201853736 Injection, Tendon Origin/Insertion Completed Medical Devices Description No Information Available Encounters Type Date Location Provider Dx Diagnosis Office Visit 01/19/2019 Main Office as Of Art Danielle DO, G89.29 Other chronic pain 2:45p 08/05/13 MPH M54.6 Pain in thoracic spine M99.02 Segmental and somatic dysfunction of thoracic region M54.5 Low back pain M99.03 Segmental and somatic dysfunction of lumbar region M53.3 Sacrococcygeal disorders, not elsewhere classified M99.04 Segmental and somatic dysfunction of sacral region Z79.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 care 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 worker (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 Office Visit 12/21/2018 2:15p Main Office as DanielleArt casarez, G89.29 Other chronic Of 08/05/13 DO, MPH pain G89.18 Other acute postprocedural pain M25.572 Pain in left ankle and joints of left foot M65.88 Other synovitis and tenosynovitis, other site Z79.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 care social worker (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 Office Visit 11/21/2018 3:00p Main Office as DanielleCricket casarezph, G89.29 Other chronic Of 08/05/13 DO, MPH pain G89.18 Other acute postprocedural pain M54.6 Pain in thoracic spine M54.2 Cervicalgia Z79.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 care social worker (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 analgesic Office Visit 10/21/2018 1:30p Main Office as DanielleArt casarez, G89.29 Other chronic Of 08/05/13 DO, MPH pain G89.18 Other acute postprocedural pain M54.2 Cervicalgia M54.6 Pain in thoracic spine M79.7 Fibromyalgia M06.89 Other specified rheumatoid arthritis, multiple sites Z79.891 nursing home (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 analgesic Office Visit 09/21/2018 2:30p Main Office as DanielleArt casarez, G89.29 Other chronic Of 08/05/13 DO, MPH pain M54.2 Cervicalgia M54.6 Pain in thoracic spine M06.89 Other specified rheumatoid arthritis, multiple sites M79.7 Fibromyalgia Z79.891 nursing home (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 analgesic Assessments Date Code Description Provider 02/17/2019 G89.29 Other chronic pain Danielle, Art, DO, MPH 02/17/2019 M54.5 Low back pain Danielle, Art, DO, MPH 02/17/2019 M53.3 Sacrococcygeal disorders, not elsewhere Danielle, Art, DO, MPH classified 02/17/2019 M54.6 Pain in thoracic spine Danielle, Art, DO, MPH 02/17/2019 Z79.891 nursing home (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 analgesic Danielle, Art , DO, MPH 01/19/2019 G89.29 Other chronic pain Danielle, Art, DO, MPH 01/19/2019 M54.6 Pain in thoracic spine Danielle, Art, DO, MPH 01/19/2019 M99.02 Segmental and somatic dysfunction of Danielle, Art, DO, MPH thoracic region 01/19/2019 M54.5 Low back pain Danielle, Art, DO, MPH 01/19/2019 M99.03 Segmental and somatic dysfunction of lumbar Danielle, Art, DO, MPH region 01/19/2019 M53.3 Sacrococcygeal disorders, not elsewhere Danielle, Art, DO, MPH classified 01/19/2019 M99.04 Segmental and somatic dysfunction of sacral Danielle, Art, DO, MPH region 01/19/2019 Z79.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 care social worker (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 analgesic Danielle, Art , DO, MPH 12/21/2018 G89.29 Other chronic pain Danielle, Art, DO, MPH 12/21/2018 G89.18 Other acute postprocedural pain Danielle, Art, DO, MPH 12/21/2018 M25.572 Pain in left ankle and joints of left foot Danielle, Art, DO, MPH 12/21/2018 M65.88 Other synovitis and tenosynovitis, other Danielle, Art, DO , MPH site 12/21/2018 Z79.891 nursing home (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 analgesic Danielle, Art , DO, MPH 11/21/2018 G89.29 Other chronic pain Danielle, Art, DO, MPH 11/21/2018 G89.18 Other acute postprocedural pain Danielle, Art, DO, MPH 11/21/2018 M54.6 Pain in thoracic spine Danielle, Art, DO, MPH 11/21/2018 M54.2 Cervicalgia Danielle, Art, DO, MPH 11/21/2018 Z79.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 care social worker (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 analgesic Danielle, Art , DO, MPH 10/21/2018 G89.29 Other chronic pain Danielle, Art, DO, MPH 10/21/2018 G89.18 Other acute postprocedural pain Danielle, Art, DO, MPH 10/21/2018 M54.2 Cervicalgia Danielle, Art, DO, MPH 10/21/2018 M54.6 Pain in thoracic spine Danielle, Art, DO, MPH 10/21/2018 M79.7 Fibromyalgia Art Danielle DO MPH 10/21/2018 M06.89 Other specified rheumatoid arthritis, Art Danielle DO, MPH multiple sites 10/21/2018 Z79.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 care social worker (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 analgesic Art Danielle DO, MPH 09/21/2018 G89.29 Other chronic pain Art Danielle DO MPH 09/21/2018 M54.2 Cervicalgia Art Danielle DO, MPH 09/21/2018 M54.6 Pain in thoracic spine Art Danielle DO, MPH 09/21/2018 M06.89 Other specified rheumatoid arthritis, Art Danielle DO, MPH multiple sites 09/21/2018 M79.7 Fibromyalgia Art Danielle DO MPH 09/21/2018 Z79.891 nursing home (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 analgesic Art Danielle DO MPH Plan of Treatment Future Appointment(s):03/22/2019 2:45 pm - Art Danielle DO MPH at Main Office as Of 08/05/1407 - Art Danielle DO, MPHG89.29 Other chronic painComments:Chronic. Symptoms and complaints discussed and reviewed today. No significant changes in physical findings. Continue current medical pain management.M54.5 Low back painComments:Chronic. Symptoms and complaints discussed and reviewed today.No changes in physical findings. Patient is stable and comfortable when current medical therapy is rendered.M53.3 Sacrococcygeal disorders, not elsewhere classifiedComments:Chronic. Symptoms and complaints discussed and reviewed today. Notable sacral somatic dysfunctions warranting OMT. Patient is stable and comfortable with current medical therapy.M54.6 Pain in thoracic spineComments:Chronic.Symptoms and complaints discussed and reviewed today. No significant changes in physical findings. Continue current medical pain management.Z79.891 nursing home (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 analgesicNew Labs:Urine Drug Screen, Ordered: 02/17/19Comments:Urine drug screen sample taken today to monitor opiate use and to monitor use of illicit substances.Will discuss results at next appointment.The following tests were ordered:6 AM, AMPH , LADAN, PHILLIP, BUP, CARIS, COCM, COT, ETG, FENT, MCSHSG, OPI, OXY, PCP, TAPEN, XTSY, ZOLP. A urine drug test (UDT) was ordered for [...] controlled substances and is considered standard of care.AllComments:Continue current medical pain management; injection therapy, osteopathic manipulation, PT / modalities, and consults as needed to manage chronic pain.Non - opioid pain management discussed and optionsdiscussed.Side effects discussed; anticipatory guidance given. Patient clearly understand and agree with all medical treatments and suggestions. All medicines prescribed are adequate and appropriate for this patient's complaint of pain, medical history, physical, and personal goals.Goals of Treatment are to provide adequate and appropriate multidisciplinary medical pain management to increase/ maintain patient's quality of life and functionality while maintaining satisfactory side effect profile andminimizing longterm end-organ damage. Importance of regular nutrition throughout the day discussed.Activity as toleratedContinue with PCP Functional Status Description No Information Available Mental Status Description No Information Available Referrals Description No Information Available
[2019-03-13 11:39] VITALS: BP 113/75
--- NOTE | 2019-03-13 11:49 | UC ---
Ear Complaint HPI - HPI Summary HPI Summary: 43-year-old female who has had a productive cough of brownish sputum over the past 4-5 days as well as a right earache which radiates into her right jaw. She is a smoker however states only 6 cigarettes per day. - History of Current Complaint Chief Complaint: UCGeneralIllness Stated Complaint: CONGESTION,RT EAR/JAW COMPLAINT Time Seen by Provider: 03/13/19 11:48 Hx Obtained From: Patient Hx Last Menstrual Period: 05/15/18 ?: No Onset/Duration: Gradual Onset Severity Initially: Mild Severity Currently: Moderate Pain Intensity: 6 Aggravating Factors: Cold Alleviating Factors: Nothing Associated Signs/Symptoms: Positive: URI Symptoms Related History: Smoking - Allergies/Home Medications Allergies/Adverse Reactions: Allergies Allergy/AdvReac Type Severity Reaction Status Date / Time No Known Allergies Allergy Verified 03/13/19 11:39 PMH/Surg Hx/FS Hx/Imm Hx Previously Healthy: Yes Other Endocrine History: fibromyalgia - Surgical History Surgical History: Yes Surgery Procedure, Year, and Place: back surgery Aug 2018 - Family History Known Family History: Positive: Cardiac Disease, Hypertension, Diabetes - Social History Alcohol Use: None Substance Use Type: None Smoking Status (MU): Heavy Every Day Tobacco Smoker Type: Cigarettes Amount Used/How Often: 6 daily Length of Time of Smoking/Using Tobacco: 10 YRS Have You Smoked in the Last Year: Yes When Did the Patient Quit Smoking/Using Tobacco: ONE MONTH AGO Household Exposure Type: Cigarettes - Immunization History Most Recent Influenza Vaccination: 2018 Most Recent Pneumonia Vaccination: NONE Review of Systems All Other Systems Reviewed And Are Negative: Yes ENT: Positive: Ear Ache - Right earache Respiratory: Positive: Cough - Productive cough of brownish sputum Is Patient Immunocompromised?: No Physical Exam Triage Information Reviewed: Yes Appearance: Well-Appearing, No Pain Distress, Well-Nourished Vital Signs: Initial Vital Signs Temp 98.3 F 03/13/19 11:34 Pulse 89 03/13/19 11:34 Resp 18 03/13/19 11:34 BP 113/75 03/13/19 11:34 Pulse Ox 100 03/13/19 11:34 Vital Signs Reviewed: Yes Eyes: Positive: Conjunctiva Clear ENT: Positive: Hearing grossly normal, Pharynx normal, TMs normal, Uvula midline Dental Exam: Normal Neck: Positive: Supple, Nontender, No Lymphadenopathy Respiratory: Positive: No respiratory distress, No accessory muscle use, Rhonchi - Scattered rhonchi, no distress. Cardiovascular: Positive: RRR, No Murmur, Pulses Normal, Brisk Capillary Refill Abdomen Description: Positive: Nontender, No Organomegaly, Soft. Negative: CVA Tenderness (R), CVA Tenderness (L) Bowel Sounds: Positive: Present Musculoskeletal: Positive: Strength Intact, ROM Intact Neurological: Positive: Alert, Muscle Tone Normal Psychological Exam: Normal Skin Exam: Normal Ear Complaint Course/Dx - Course Course Of Treatment: The patient was advised to stop smoking. I'm going to treat her with a Z-Sury and follow-up with her primary care provider if no improvement. - Differential Dx/Diagnosis Provider Diagnosis: Otalgia, right ear, Bronchitis Discharge ED - Sign-Out/Discharge Documenting (check all that apply): Patient Departure All imaging exams completed and their final reports reviewed: No Studies - Discharge Plan Condition: Fair Disposition: HOME Prescriptions: Azithromyxin SURY (NF) [Z-Sury (Zithromax) 250 mg tabs #6] 2 tab PO .TODAY, THEN 1 DAILY #6 tab Patient Education Materials: Acute Bronchitis (ED) Referrals: Citlalli Franklin MD [Primary Care Provider] - Additional Instructions: Increase fluids, stop smoking, may alternate Motrin every 8 hours and Tylenol every 4 hours for pain. Follow-up with your primary care provider in 3 or 4 days if no improvement. - Billing Disposition and Condition Condition: FAIR Disposition: Home
== END 2019-03-13 11:59 | disposition home or self-care (01) ==
LOC: UCCORT 11:17
DX: H92.01 Otalgia, right ear (principal); J40 Bronchitis, not specified as acute or chronic; F17.210 Nicotine dependence, cigarettes, uncomplicated
CPT/HCPCS: 99212; G0463